=== PATIENT | female | born 1960 | race Two or more races ===

== ENCOUNTER 2022-02-03 13:18 | Outpatient (REF) | payer MEDICARE, SELFPAY ==
--- NOTE | ~2022-02-03 | MM_ITS ---
EXAMINATION: MM SCREENING DIGITAL BREAST TOMOSYNTHESIS, BILATERAL CLINICAL INFORMATION: Screening. Asymptomatic. The lifetime risk of breast cancer based on the Tyrer-Cuzick Model is 5%. COMPARISON: Mammography: 02/19/2018; outside mammography 12/05/2016, 05/14/2012 ([facility], [place]). Ultrasound left breast 02/19/2018. TECHNIQUE: Digital breast tomosynthesis is performed in both the craniocaudal and mediolateral oblique views along with computer-aided detection (CAD). Synthesized 2D images are generated from the tomosynthesis. FINDINGS: There are scattered areas of fibroglandular density (ACR BI-RADS breast composition Category b). There are no significant masses, abnormal calcifications, or other abnormalities. No developing density or interval architectural abnormality. No significant changes from prior studies. MM/MM tomosynthesis screening BI IMPRESSION: No mammographic evidence of malignancy. ASSESSMENT: BI-RADS 1: Negative RECOMMENDATION: Routine annual mammography screening. This patient's information was entered into a reminder system with a target due date for their next mammogram.
== END 2022-02-03 13:19 | disposition home or self-care (01) ==
LOC: HO.MAMMO 13:18
PROVIDERS: Visit Provider General Practice
DX: Z12.31 Encounter for screening mammogram for malignant neoplasm of breast (principal)
CPT/HCPCS: 77063; 77067

== ENCOUNTER 2022-05-10 12:57 | Outpatient (REF) | payer MEDICARE, SELFPAY ==
--- NOTE | ~2022-05-10 | XR_ITS ---
EXAMINATION: XR ELBOW, LEFT CLINICAL INFORMATION: Epicondylitis COMPARISON: None TECHNIQUE: AP, lateral, and oblique views of the left elbow. FINDINGS: Minimal calcific or ossific density noted adjacent to the medial and lateral epicondyle likely likely related to dystrophic or degenerative change in the adjacent soft tissues. Bones, joints and soft tissues are otherwise normal. No effusion. XR/XR elbow LT 2V IMPRESSION: No acute abnormality. Small areas of calcification or ossification adjacent to the epicondyles likely dystrophic or degenerative. This could also be associated with calcific tendinitis.
--- NOTE | ~2022-05-10 | XR_ITS ---
EXAMINATION: XR SHOULDER, RIGHT CLINICAL INFORMATION: Stiffness of right shoulder COMPARISON: X-ray the right shoulder May 2019 TECHNIQUE: AP external rotation, Grashey, scapular Y, and axillary views of the right shoulder. FINDINGS: There is a small focus of calcific density in the region of the distal supraspinatus tendon adjacent to the greater tuberosity. The bones joints and soft tissues are otherwise unremarkable XR/XR shoulder RT min 2V IMPRESSION: Calcification the region of rotator cuff this can be associated with calcific tendinitis or calcific tendinosis. This is not seen on the prior examination.
== END 2022-05-10 12:58 | disposition home or self-care (01) ==
LOC: HO.XRAY 12:57
PROVIDERS: PCP General Practice; Visit Provider General Practice
DX: M77.02 Medial epicondylitis, left elbow (principal); M25.611 Stiffness of right shoulder, not elsewhere classified
CPT/HCPCS: 73030; 73070

== ENCOUNTER 2022-06-19 12:43 | Outpatient (RCR) | payer MEDICARE, SELFPAY | END 2022-06-27 09:18 | disposition home or self-care (01) | LOC: HO.PTCHIC 12:43 | PROVIDERS: PCP General Practice; Visit Provider General Practice | DX: M25.511 Pain in right shoulder (principal) | CPT/HCPCS: 97110; 97161 ==

== ENCOUNTER 2022-09-11 14:27 | Outpatient (REF) | payer MEDICARE, SELFPAY ==
--- NOTE | ~2022-09-11 | US_ITS ---
EXAMINATION: US SOFT TISSUE OF THE NECK CLINICAL INFORMATION: Palpable neck mass. COMPARISON: None TECHNIQUE: Linear transducer grayscale and color Doppler examination of the posterior base of neck. FINDINGS: No abnormal cystic or solid masses are seen in region of palpable abnormality. No lymph nodes are appreciated. No edematous change within the subcutaneous tissues and muscles noted. US/US soft tiss head and/or neck IMPRESSION: No ultrasound abnormality in region of palpable abnormality posterior base of the neck.
== END 2022-09-11 14:28 | disposition home or self-care (01) ==
LOC: HO.US 14:27
PROVIDERS: PCP General Practice; Visit Provider General Practice
DX: R22.1 Localized swelling, mass and lump, neck (principal)
CPT/HCPCS: 76536

== ENCOUNTER 2023-11-12 15:49 | Outpatient (REF) | payer MEDICARE, SELFPAY ==
[2023-11-12 17:30] LABS: MANUAL DIFF FLAG NO
[2023-11-12 17:46] LABS: Estimated Average Glucose 214 mg/dL; Hemoglobin A1c % 9.1 % (<6.0)
[2023-11-12 17:54] LABS: Basophils Percent Auto 0.4 % (0-2); Eosinophils Absolute Auto 0.1 X10*3/uL (0.0-0.4); Eosinophils Percent Auto 2.5 % (0-4); Hematocrit 31.3 % (37.0-47.0); Hemoglobin 9.7 g/dl (12.0-16.0); Imm Gran Abs Auto 0.02 X10*3/uL (0.00-0.03); Imm Gran Pct Auto 0.4 % (0.0-0.4); Lymphocytes Absolute Auto 0.8 X10*3/uL (1.2-4.9); Lymphocytes Percent Auto 16.6 % (20-40); Mean Corpuscular Volume 77.5 fL (80.0-98.0); Monocytes Absolute Auto 0.6 X10*3/uL (0.1-1.2); Monocytes Percent Auto 11.4 % (2-11); Neutrophils Absolute Auto 3.3 x10*3/uL (2.0-8.3); Neutrophils Percent Auto 68.7 % (45-73); Platelet Count 184 X10*3/uL (160-400); Red Blood Count 4.04 X10*6/uL (4.20-5.50); Red Cell Distribution Width 15.1 % (11.0-16.0); White Blood Count 4.8 X10*3/uL (4.8-10.8)
[2023-11-12 17:57] LABS: Cholesterol 162 mg/dL (<200); HDL Cholesterol 39 mg/dL (>40); LDL Cholesterol Calculated 102 mg/dL (<100); Triglycerides 105 mg/dL (<150)
[2023-11-12 18:08] LABS: Creatinine Urine 31.53 mg/dL; Microalbum/Creatinine Ratio Ur 69.7 ug/mg cr (<30)
[2023-11-12 18:13] LABS: TSH reflex Free T4 1.31 uIU/mL (0.32-4.0)
[2023-11-12 18:23] LABS: Folate 15.6 ng/mL (> or = 4.0); Vitamin B12 283 pg/mL (200-900)
== END 2023-11-12 15:50 | disposition home or self-care (01) ==
LOC: HO.HHCL 15:49
PROVIDERS: Visit Provider General Practice
DX: E11.65 Type 2 diabetes mellitus with hyperglycemia (principal); L65.9 Nonscarring hair loss, unspecified; Z79.4 Long term (current) use of insulin
CPT/HCPCS: 36415; 80061; 82043; 82570; 82607; 82746; 83036; 84443; 85025

== ENCOUNTER 2023-12-03 14:10 | Outpatient (REF) | payer MEDICARE, SELFPAY ==
[2023-12-03 16:35] LABS: Alanine Aminotransferase 46 U/L (0-31); Albumin Level 3.9 g/dL (3.5-5.0); Alkaline Phosphatase 38 U/L (39-117); Anion Gap 15 (12-20); Aspartate Amino Transferase 39 U/L (5-31); Bilirubin Total 0.5 mg/dL (0.0-1.0); Blood Urea Nitrogen 24 mg/dL (9-16); Calcium 10.4 mg/dL (8.4-10.2); Carbon Dioxide 24 mmol/L (22-29); Chloride 99 mmol/L (96-108); Estimated Glomerular Filt Rate 32; Sodium 133 mmol/L (135-145); Total Protein 7.9 g/dL (6.5-8.0)
[2023-12-03 19:35] LABS: Glucose Random 427 mg/dL (60-115)
== END 2023-12-03 14:11 | disposition home or self-care (01) ==
LOC: HO.HHCL 14:10
PROVIDERS: Visit Provider General Practice
DX: L29.9 Pruritus, unspecified (principal)
CPT/HCPCS: 36415; 80053

== ENCOUNTER 2024-10-21 14:38 | Outpatient (REF) | payer MEDICARE, SELFPAY ==
--- NOTE | ~2024-10-21 | XR_ITS ---
EXAMINATION: XR CHEST CLINICAL INFORMATION: cough, wheezing, SOB for the past 2 weeks COMPARISON: April 02, 2018. TECHNIQUE: 2 views of the chest were obtained. FINDINGS: No consolidation, pleural effusion or pneumothorax. No hyperinflation. Cardiomediastinal silhouette size is normal. Multilevel thoracic spondylosis. Old healed rib fractures in the posterior lateral aspect of the ribs left upper hemithorax. There is poor evaluation of the left glenohumeral joint with apparent mild position. XR/XR chest 2V IMPRESSION: No acute airspace disease. Dislocated left glenohumeral joint cannot be excluded. Electronically signed by: Sarmad Peterson MD 10/21/2024 03:27 PM PAULINE TOM
--- OUTSIDE RECORDS SUMMARY | 2024-10-21 18:18 | XMS_ITS | Encounter Summary ---
Author Organization [employer] Address [address] [place] [address] [address] [place] [address] Care Team Providers Care Client Evaluator Name Role Phone Love Garcia MD Primary Care Provider [phone] Reason for Visit * Reason Onset Date Comments Reschedule 01/14/2024 Encounter Details Date Type Department Care Team ([facility] st Contact Info) Description 01/14/2024 Telephone [facility] MEDICINE [address] [place], [place] [phone] Love Garcia MD [address] [place], [place] [phone] Reschedule Social History Tobacco Use Types Packs/Day Years Used Date Smoking Tobacco: Every Day Cigarettes Smokeless Tobacco: Never Comments:1 or 2 cigarettes a day Alcohol Use Standard Drinks/Week Comments Never 0 (1 standard drink = 0.6 oz pur e alcohol) Depression Answer Date Recorded Patient Health Questionnaire-9 Score 16 11/12/2023 Patient Health Questionnaire-9 Score 16 11/12/2023 Last PHQ-9: Questionnaire Data Not on file 0 11/12/2023 Housing Stability Answer Date Recorded What is your housing situation today? I have everett camargo 11/12/[address] you li ve. Do you have problems with any of the following? None of the above 11/12/2023 Food Insecurity Answer Date Recorded Within the past 12 months, y ou worried that your food would run out before you got money to buy more: Never True 11/12/2023 Within the past 12 months,th e food you bought just didn't last and you didn't have enough money to get more: Never True Transportation Answer Date Recorded In the past 12 months, has l ack of transportation kept you from medical appts, meetings, work or from getting things needed for daily living? No 11/12/2023 Utilities Answer Date Recorded In the past 12 months, has t he electric, gas, oil or water company threatened to shut off services in your home? No 11/12/2023 Depression Answer Date Recorded Patient Health Questionnaire-2 Score 4 11/12/2023 Comments Unknown Sex and Gender Information Value Date Recorded Sex Assigned at Female 06/26/2022 10:31 AM EDT Legal Sex Female 10:31 AM EDT Gender Identity Female 06/26/2022 10:31 AM EDT Sexual Orientation Straight 10/20/2022 11 :41 AM EST documented as of this encounter Miscellaneous Notes * Telephone Encounter - Liliane Monge - 01/14/2024 2:39 PM EDT Tc from pt requesting to reschedule 01/13 follow up appointment. Power Hair [employer]pper attempted tos schedule but no availability. Please contact pt at [phone] documented in this encounter Plan of Treatment Not on file documented as of this encounter Visit Diagnoses Not on filedocumented in this encounter Additional Health Concerns Assessment Noted Time PHQ-9 Depression Total Score: 16 024 3:45 PM EDT documented as of this encounter Care Teams Client Evaluator Relationship Specialty Start Date End Date Love Garcia MD [address] [place] [address] PCP - General Family Medicine 09/14/20 documented as of this encounter
--- OUTSIDE RECORDS SUMMARY | 2024-10-21 18:18 | XMS_ITS | Encounter Summary ---
Author Organization [employer] Address [address] [facility] [address] [place] [address] Care Team Providers Care Hat Body Inspector Name Role Phone Love Garcia MD Primary Care Provider [phone] Encounter Details Date Type Department Care Team (Late st Contact Info) Description 11/14/2023 Orders Only [facility] MEDICINE [address] [place], [place] [phone] Love Garcia MD [address] [place], [place] [phone] Chronic pruritus (Primary Dx) Social History Tobacco Use Types Packs/Day Years [...] AM EST documented as of this encounter Plan of Treatment Not on file documented as of this encounter Procedures Procedure Name Priority Date/Time Associated Diagnosis Comments COMPREHENSIVE METABOLIC PANEL Routine 12/03/2023 2:11 PM EDT Chronic pruritus documented in this encounter Results * (ABNORMAL) Comprehensive Metabolic Panel (12/03/2023 2:11 PM EDT) Sodium 133(L) 135 - 145 mmol/L [facility] Potassium 5.0 3.3 - 5.1 mmol/L [facility] Chloride 99 96 - 108 mmol/L [facility] Carbon Dioxide 24 22 - 29 mmol/L [facility] Anion Gap 15 12 - 20 [facility] Urea Nitrogen (BUN) 24(H) 9 - 16 mg/dL [facility] Creatinine, Serum 1.64(H) 0.5 - 1.4 mg/dL [facility] Estimated Glomerular Filt Rate 32 [facility] Comment:NOTE: For -Am erican individuals, multiply the result by 1.210.Chronic Kidney Disease: Estimated GFR < 60 mL/min/1.99s7Ntuvpa Kidney Disease: Estimated GFR < 15 mL/min/1.73m2 Glucose 427(HH) 60 - 115 mg/dL [facility] Comment:Critical value for t est(s): GLUR Results called to and readback by: ESSIE BROCK Person calling:Estuardo:12/03/2023 Time:1633 Calcium 10.4(H) 8.4 - 10.2 mg/dL [facility] Bilirubin, Total 0.5 0.0 - 1.0 mg/dL [facility] Aspartate Amino Transferase 39(H) 5 - 31 U/L [facility] Alanine Aminotransferase 46(H) 0 - 31 U/L [facility] Total Protein 7.9 6.5 - 8.0 g/dL [facility] Albumin Level 3.9 3.5 - 5.0 g/dL [facility] Alkaline Phosphatase 38(L) 39 - 117 U/L [facility] Blood Venous blood specimen / Unknown 12/03/2023 2:11 PM EDT 12/03/2023 4:10 PM EDT us Love Garcia MD LAB BLOOD ORDERABLES Edited Re sult - Final [facility] [address] [place] [phone] documented in this encounter Visit Diagnoses Diagnosis Chronic pruritus- Primary documented in this encounter Additional Health Concerns Assessment Noted Time PHQ-9 Depression Total Score: 16 024 3:45 PM EDT documented as of this encounter Care Teams Hat Body Inspector Relationship Specialty Start Date End Date Love Garcia MD [address] [place] [address] PCP - General Family Medicine 09/14/20 documented as of this encounter
--- OUTSIDE RECORDS SUMMARY | 2024-10-21 18:18 | XMS_ITS | Encounter Summary ---
Author Organization [employer] Address [address] [place] [address] [address] [place] [address] Care Team Providers Care Sr. Vendor Management Associate Name Role Phone Love Garcia MD Primary Care Provider [phone] Reason for Visit * Reason Onset Date Comments Med Refill 08/08/2023 Encounter Details Date Type Department Care Team ([facility] st Contact Info) Description 08/08/2023 Telephone [facility] MEDICINE [address] [place], [place] [phone] Love Garcia MD [address] [place], [place] [phone] Med Refill Social History Tobacco Use Types Packs/Day Years Used Date Smoking Tobacco: Every Day Cigarettes Smokeless Tobacco: Never Comments:1 or 2 cigarettes a day Alcohol Use Standard Drinks/Week Comments Never 0 (1 standard drink = 0.6 oz pur e alcohol) Depression Answer Date Recorded Patient Health Questionnaire-9 Score 14 10/20/2022 Housing Stability Answer Date Recorded What is your housing situation today? I have everett camargo 07/02/[address] you li ve. Do you have problems with any of the following? None of the above 07/02/2023 Food Insecurity Answer Date Recorded Within the past 12 months, y ou worried that your food would run out before you got money to buy more: Never True 07/02/2023 Within the past 12 months,th e food you bought just didn't last and you didn't have enough money to get more: Never True 01/2023 Transportation Answer Date Recorded In the past 12 months, has l ack of transportation kept you from medical appts, meetings, work or from getting things needed for daily living? Yes, it has kept me from medical appointments or getting medications. 06/07/2023 Utilities Answer Date Recorded In the past 12 months, has t he electric, gas, oil or water company threatened to shut off services in your home? No 07/02/2023 Depression Answer Date Recorded Patient Health Questionnaire-2 Score 6 10/20/2022 Comments Unknown Sex and Gender Information Value Date Recorded Sex Assigned at Female 06/26/2022 10:31 AM EDT Legal Sex Female 10:31 AM EDT Gender Identity Female 06/26/2022 10:31 AM EDT Sexual Orientation Straight 10/20/2022 11 :41 AM EST documented as of this encounter Miscellaneous Notes * Telephone Encounter - Madhavi Alexandre LPN - 08/08/2023 12:24 PM EST Medication pended to PCP. * Telephone Encounter - Eddie Serrano - 08/08/2023 12:19 PM EST Tc from pt requesting medication refill for insulin glargine (Lantus SoloStar) 100 UNIT/ML pen. documented in this encounter Plan of Treatment Not on file documented as of this encounter Visit Diagnoses Not on filedocumented in this encounter Additional Health Concerns Assessment Noted Time PHQ-9 Depression Total Score: 14 023 11:44 AM EST documented as of this encounter Care Teams Sr. Vendor Management Associate Relationship Specialty Start Date End Date Love Garcia MD [address] [place] [phone] PCP - General Family Medicine 09/14/20 documented as of this encounter
--- OUTSIDE RECORDS SUMMARY | 2024-10-21 18:18 | XMS_ITS | Encounter Summary ---
Author Organization [employer] Address [address] [place] [address] [address] [place] [address] Care Team Providers Care Cryptographic Technician Name Role Phone Love Garcia MD Primary Care Provider Reason for Visit * Reason Onset Date Comments Call Back Request 01/14/2024 Encounter Details Date Type Department Care Team ([facility] st Contact Info) Description 01/14/2024 Telephone [facility] MEDICINE [address] [place], [place] [phone] Love Garcia MD [address] [place], [place] [phone] Call Back Request Social History Tobacco Use Types Packs/Day Years [...] encounter Miscellaneous Notes * Telephone Encounter - Claire Hodge RN - 01/14/2024 4:00 PM EDT TC placed to pt [phone] in regards to below message. Pt informed she should be on a statin medication as she has DM2 and is between the ages of 45-75. Pt informed she used to be on a statin medication however it appears the refills ran out and it was never requested to send a new script. Pt verbalized understanding. Pt to f/u PRN. * Telephone Encounter - Liliane Monge - 01/14/2024 2:36 PM EDT Tc from pt requesting to speak with a nurse in regards to atorvastatin (Lipitor) 20 MG tablet. Would like to know why she was prescribed a cholesterol medication. Please contact pt at [phone] documented in this encounter Plan of Treatment Not on file documented as of this encounter Visit Diagnoses Not on filedocumented in this encounter Additional Health Concerns Assessment Noted Time PHQ-9 Depression Total Score: 16 024 3:45 PM EDT documented as of this encounter Care Teams Cryptographic Technician Relationship Specialty Start Date End Date Love Garcia MD [address] [place] [phone] PCP - General Family Medicine 09/14/20 documented as of this encounter
--- OUTSIDE RECORDS SUMMARY | 2024-10-21 18:18 | XMS_ITS | Clinical Summary ---
Author Organization [employer] Address [address] [place] [address] [address] [place] [address] Care Team Providers Care Emergency Services Director Name Role Phone Love Garcia MD Primary Care Provider [phone] Allergies Active Allergy Reactions Criticality Noted Date Comments Penicillin G 03/07/2017 Medications ascorbic acid (Vitamin C) 500 MG tablet take 1 tablet daily with iron Active cetirizine (ZyrTEC) 10 MG tablet take 1 tablet by oral route every day Active Diclofenac Sodium 1 % gel apply 2 gram by topical route 4 times every day to the affected area(s) Active glucose blood (FREESTYLE LITE) test strip USE 1 Each by DIRECTED route 3 times every day Active Multiple Vitamin (Multi-Vitamin) tablet take 1 tablet by oral route every day with food Active pramoxine-calam ine (Calahist) 1-8 % lotion apply at bedtime Active pen needle 32G x 4 mm misc Inject under the skin if needed. Use qhs Active Super Thin Lancets misc Use 1 lancet by to skin route 3 times every day Active cyclobenzaprine (Flexeril) 5 MG tablet TAKE 1 TABLET BY MOUTH THREE TIMES DAILY FOR 10 DAYS 023 Active traZODone (Desyrel) 50 MG tabletIndicatio ns:Primary insomnia Take 1 tablet (50 mg) by mouth at bedtime. 90 tablet 3 024 2024 Active ferrous sulfate 325 (65 Fe) MG tablet Take 1 tablet (325 mg) by mouth every other day. 45 tablet 3 024 Active metFORMIN (Glucophage) 1000 MG tablet TAKE 1 TABLET BY MOUTH TWICE DAILY WITH MORNING AND EVENING MEALS 200 tablet 3 Active lisinopril 40 MG tabletIndicatio ns:Essential hypertension TAKE 1 TABLET BY MOUTH DAILY 100 tablet 3 Active glipiZIDE (Glucotrol) 10 MG tablet TAKE 1 TABLET BY MOUTH TWICE DAILY BEFORE MEALS 200 tablet 3 Active gabapentin (Neurontin) 300 MG capsule TAKE 1 CAPSULE BY MOUTH 3 TIMES DAILY 300 capsule 3 024 2024 Active omeprazole (PriLOSEC) [address] capsule TAKE 1 CAPSULE BY MOUTH DAILY BEFORE A MEAL 100 capsule 3 Active atorvastatin (Lipitor) 20 MG tablet Take 1 tablet (20 mg) by mouth Once per day. 90 tablet 3 Active metoprolol tartrate (Lopressor) 25 MG tablet Take 1 tablet (25 mg) by mouth 2 times daily. TAKE 1 TABLET BY MOUTH TWICE DAILY WITH 50MG TABLET FOR A TOTAL DOSE OF 75MG TWICE DAILY 180 tablet 3 Active metoprolol tartrate (Lopressor) 50 MG tabletIndicatio ns:Essential hypertension TAKE 1 TABLET BY MOUTH TWICE DAILY WITH MEALS TAKE DOSE WITH 25 MG FOR A TOTAL DOSE OF 75 MG 200 tablet 2 Active Sure Comfort Pen [place] 31G X 5 MM misc USE DIRECTED AT BEDTIME 100 each 11 Active Tirzepatide (Mounjaro) 2.5 MG/0.5ML solution auto-injector Inject 2.5 mg under the skin 1 (one) time per week. 2 mL 2 Active hydroCHLOROthia zide (HYDRODiuril) 25 MG tablet Take 1 tablet (25 mg) by mouth Once per day. 90 tablet 3 024 2024 Active FREESTYLE LITE test stripIndication s:Type 2 diabetes mellitus with hyperglycemia, with long-term current use of insulin ([facility]) Use to test blood sugar three times daily 100 each 12 025 2025 Active Lancets miscIndications :Type 2 diabetes mellitus with hyperglycemia, with long-term current use of insulin (CMS/[facility]) Use to test blood sugar three times daily 100 each Active Alcohol Swabs 70 % padsIndications :Type 2 diabetes mellitus with hyperglycemia, with long-term current use of insulin ([facility]) Use to test blood sugar three times daily 100 each Active Blood Glucose Monitoring Suppl (FreeStyle [place] Lite) w/Device kit Use to test blood sugar three times daily 1 kit Active doxycycline (Vibra-Tabs) 100 MG tablet Take 1 tablet (100 mg) by mouth 2 times daily for 5 days. Take with a full glass of water and do not lie down for at least 30 minutes after. 10 tablet 025 2024 Active albuterol (2.5 MG/3ML) 0.083% nebulizer solutionIndicat ions:Cough, unspecified type,Asthma with acute exacerbation, unspecified asthma severity, unspecified whether persistent,Lung crackles Take 3 mL (2.5 mg) by nebulization every 6 (six) hours if needed for wheezing. 75 mL 025 2025 Active albuterol 108 (90 Base) MCG/ACT inhalerIndicati ons:Asthma with acute exacerbation, unspecified asthma severity, unspecified whether persistent INHALE 2 PUFFS BY MOUTH EVERY 6 HOURS IF NEEDED FOR WHEEZING 8.5 g Active fluticasone furoate (Arnuity Ellipta) 100 MCG/ACT inhaler Inhale 1 puff Once per day. Rinse mouth with water after use to reduce aftertaste and incidence of candidiasis. Do not swallow. 1 each 025 2025 Active predniSONE (Deltasone) 20 MG tablet Take 1 tablet (20 mg) by mouth Once per day for 5 days. 5 tablet 025 2024 Active insulin glargine (Lantus SoloStar) 100 UNIT/ML pen INJECT 38 UNITS SUBCUTANEOUSLY EVERY EVENING 15 mL Active albuterol 108 (90 Base) MCG/ACT inhalerIndicati ons:Mild intermittent asthma with acute exacerbation INHALE 2 PUFFS BY MOUTH EVERY 6 HOURS IF NEEDED FOR WHEEZING 8.5 g 024 02/25/ 2025 Discontinued(R eorder (will not trigger notification to Pharmacy)) Lantus SoloStar 100 UNIT/ML pen INJECT 38 UNITS SUBCUTANEOUSLY EVERY EVENING 15 mL 11 025 2024 Discontinued(R eorder (will not trigger notification to Pharmacy)) Hospital, Clinic, or Other Facility Administered Medication Ordered Dose Route Frequency Start Date End Date Status albuterol (2.5 MG/3ML) 0.083% nebulizer solution 2.5 mgIndications:Cough, unspecified type 2.5 mg NEBULIZATION Once 10/21/2024 10/21/2024 Ended Active Problems Problem Noted Date Diagnosed Date Encounter for screening colonoscopy 08/01/2024 Microcytic anemia 11/14/2023 Assessment & Plan (11/14/2023 9:58 AM EDT): Continue iron supplementation Hg 9.7 today with MCV 77 Hospital discharge follow-up 11/14/2023 Assessment & Plan (11/14/2023 9:57 AM EDT): F/u with GI in February 2024 Continue iron supplement Hair loss 11/14/2023 Muscle pain, myofascial 10/23/2022 Assessment & Plan (10/23/2022 5:01 AM EST): Exam consistent with myofascial pain Linked to stress/family issues and discussed this connection Trial of muscle relaxer, Flexeril 5mg up to three times daily Gentle massage and exercise Find ways to vent stress Neck mass 08/10/2022 Assessment & Plan (08/10/2022 2:27 PM EST): Re-ordered neck soft tissue US, had not heard from previous order Chest pain 12/26/2019 Bilateral cataracts 10/10/2019 Arthritis of hand 07/04/2019 Steatosis of liver 07/04/2019 Assessment & Plan (08/03/2024 5:55 AM EST): Previously noted Due for labs and HCC screening Has been sober for 4 years Assessment & Plan (10/23/2022 4:58 AM EST): Previously noted Due for labs and HCC screening Alcoholic hepatitis 10/24/2017 Impingement syndrome of shoulder region 10/24/19 18 Drug-induced mood disorder 10/12/2017 Tubular adenoma of colon 08/17/2017 Assessment & Plan (08/03/2024 5:54 AM EST): Needs repeat colonscopy Gastroesophageal reflux disease 03/07/2017 Breast lump 03/07/2017 Chronic painful diabetic neuropathy 03/07/2017 Assessment & Plan (11/14/2023 9:55 AM EDT): Continue Gabapentin 300mg up to TID Better glucose control may help this as well Assessment & Plan (08/10/2022 2:24 PM EST): Continue Gabapentin 300mg up to TID Better glucose control may help this as well Constipation 03/07/2017 Current moderate episode of major depressive disorder without prior episode 03/07/2017 Assessment & Plan (10/23/2022 5:00 AM EST): PHQ9 score of 14 Declines referrals to [facility] or prescriber Will start Trazodone 50mg due to trouble sleeping Her grandchildren are great source of inspiration Assessment & Plan (08/10/2022 2:27 PM EST): PHQ9 score of 17 Declines referrals Her grandchildren are great source of inspiration Dyslipidemia 03/07/2017 Essential hypertension 03/07/2017 Assessment & Plan (08/03/2024 5:57 AM EST): Not at goal <140/90 Does not monitor at home Cont Metoprolol and Lisinopril 40mg Increase hydrochlorothiazide to 25mg Assessment & Plan (11/14/2023 9:56 AM EDT): Not at goal <140/90 Does not monitor at home Cont Metoprolol and Lisinopril 40mg, hydrochlorothiazide 12.5mg Has not taken medications today yet Assessment & Plan (10/23/2022 4:58 AM EST): Not at goal <140/90 Cont Metoprolol and Lisinopril 40mg Add thiazide diuretic Assessment & Plan (08/10/2022 2:25 PM EST): Not at goal <140/90 Cont Metorpolol and Lisinopril 40mg Mild intermittent asthma 03/07/2017 Assessment & Plan (11/14/2023 9:55 AM EDT): Has been hospitalized for asthma exacerbation previously as an adult Trigger URI Albuterol refills placed, use up to 4-6 puffs every 4 hours during exacerbation Assessment & Plan (08/10/2022 2:25 PM EST): Has been hospitalized for asthma exacerbation previously as an adult Trigger URI Restart Albuterol prn up to every 4 hours with current URI To ER if not improving after Albuterol tx Obesity 03/07/2017 Prolonged QT interval 03/07/2017 Type 2 diabetes mellitus 03/07/2017 Assessment & Plan (08/03/2024 5:56 AM EST): A1C 9.4 continue Metformin and Glipizide, and Lantus 28units nightly Will try to see if she qualifies for as secondary insurance and then they would pay for copay of GLP1 and would start Mounjaro Monofilament- overdue Dental- UTD Eye exam- overdue to inform me if money or insurance issues make it difficult to obtain medications Imms- declines Assessment & Plan (11/14/2023 9:57 AM EDT): Improving A1C to 9.1 continue Metformin and Glipizide, and Lantus 28units nightly Increase Trulicity 3mg once weekly Monofilament- overdue Dental- UTD Eye exam- overdue to inform me if money or insurance issues make it difficult to obtain medications f/u in 3 months Assessment & Plan (10/23/2022 4:59 AM EST): Improving A1C to 9.6 continue Metformin and Glipizide, and Lantus 28units nightly Increase Trulicity 1.5 mg once weekly Monofilament- overdue Dental- UTD Eye exam- overdue to inform me if money or insurance issues make it difficult to obtain medications f/u in 3 months Assessment & Plan (08/10/2022 2:27 PM EST): Improving A1C to 10.2 continue Metformin and Glipizide, and Lantus 28units nightly Continue Trulicity 0.75mg once weekly Monofilament- overdue Dental- UTD Eye exam- overdue to inform me if money or insurance issues make it difficult to obtain medications Will likely increase Trulicity to 1.5mg at next visit f/u in 2-3 months Resolved Problems Problem Noted Date Diagnosed Date Resolved Date Alcohol consumption binge drinking 05/02/2017 08/03/2024 Joint derangement 03/07/2017 08/03/2024 Left-sided headache 03/07/2017 08/03/20 Encounters Date Type Department Care Team Description 10/21/2024 1:20 PM EST Office Visit [facility] [address] [place] [phone] Name, MD Lambert Asthma with acute exacerbation, unspecified asthma severity, unspecified whether persistent (Primary Dx); Cough, unspecified type; Lung crackles 10/21/2024 Telephone [facility] [address] [place] [phone] Geena Cartagena, RN Results 10/20/2024 Telephone [facility] [address] [place] [phone] Love Garcia MD Nurse Triage 10/08/2024 Refill [facility] [address] [place] [address] [phone] Love Garcia MD Type 2 diabetes mellitus with hyperglycemia, with long-term current use of insulin ([facility]) 09/17/2024 Telephone [facility] [address] [place] [phone] Love Garcia MD Nurse Triage 09/05/2024 Refill [facility] [address] [place] [address] [phone] Love Garcia MD 08/22/2024 Telephone [facility] [address] [place] [address] [phone] Love Garcia MD 08/21/2024 Telephone [facility] [address] [place] [address] Love Garcia MD telephone call 08/14/2024 Telephone [facility] [address] [place] [address] Love Garcia MD telephone call 08/01/2024 2:45 PM EST Office Visit [facility] [address] [place] [address] Love Garcia MD Type 2 diabetes mellitus with hyperglycemia, with long-term current use of insulin (CMS/HCC) (Primary Dx); Dietary counseling; Exercise counseling; Encounter for immunization; Encounter for screening mammogram for malignant neoplasm of breast; Essential hypertension; Steatosis of liver; Tubular adenoma of colon; Class 1 obesity with serious comorbidity and body mass index (BMI) of 32.0 to 32.9 in adult, unspecified obesity type; Alcoholic hepatitis without ascites; Current moderate episode of major depressive disorder without prior episode (CMS/HCC); Calculus of gallbladder without cholecystitis without obstruction 08/01/2024 Travel from Last 3 Months Immunizations Name Administration Dates Next Due Influenza injectable quadriv alent preservative free 06/01/2022,06/04/2020,06/06/2019,04/28,05/19/2015 Influenza, seasonal, injecta ble, preservative free 08/01/2024,04/28/2017 Pfizer Covid-19 Vaccine 12+ 01/02/2022,,03/03/2021 Pfizer Covid-19 Vaccine 12+ Bivalent 06/16/2022 Pfizer Covid-19 Vaccine 12+ daljit-sucrose (Mireles Cap) 01/02/2022 Pneumococcal Conjugate PCV 20 06/16/2022 Pneumococcal Polysaccharide PPSV23 05/02/2017 Tdap 05/02/2017 Zoster, Recombinant 07/09/2018 Family History Medical History Relation Name Comments Lung cancer Father Diabetes Mother Heart failure Mother Lymphoma Mother Asthma Sister Diabetes Sister Stroke Sister Relation Name Status Comments Father Mother Sister Social History Tobacco Use Types Packs/Day Years Used Date Smoking Tobacco: Every Day Cigarettes Smokeless Tobacco: Never Tobacco Cessation:Ready to Q uit: Not Asked; Counseling Given: Not Answered Comments:1 or 2 cigarettes a day Alcohol [...] Orientation Straight 10/20/2022 11 :41 AM EST Last Filed Vital Signs Vital Sign Reading Time Taken Comments Blood Pressure 146/84 10/21/2024 1:18 PM EST Pulse 87 10/21/2024 1:18 PM EST Temperature 36.9 ??C (98.5 ??F) 10/21/2024 1:18 PM ES T Respiratory Rate 20 10/21/2024 1:18 PM EST Oxygen Saturation 92% 10/21/2024 1:18 PM EST Inhaled Oxygen Concentration - - Weight 78.1 kg (172 lb 4 oz) 10/21/2024 1:18 PM EST Height 157.5 cm (5' 2 ) 10/21/2024 1:18 PM EST Body Mass Index 31.5 10/21/2024 1:18 PM EST Plan of Treatment Health Maintenance Due Date Last Done Comments CT Colonography 1962 FIT DNA/Cologuard 1962 FIT 1962 FOBT 1960 HIV Screening 1960 Sigmoidoscopy 1962 Diabetes: Foot Exam 1972 Alcohol/Substance Use Screening 1974 Hepatitis A Vaccines (1 of 2 - Risk 2-dose series) 1981 Pap Smear 11/14/1983 Cervical Cancer Screening 1992 HPV/Cotest 1992 Colonoscopy 08/08/2018 08/08/2017 Colorectal Cancer Screening 08/08/2018 Zoster Vaccines (2 of 2) 09/03/2018 07/09/2018 Hepatitis B Vaccines (1 of 3 - Risk 3-dose series) 2022 RSV Patients and Patients Aged 60 years or older (1 - Risk 60-74 years 1-dose series) 2022 Mammogram 02/03/2023 02/03/2022, 02/03/2022 COVID-19 Vaccine ( season) 2024 06/16/2022, 01/02/2022, 01/02/2022, Additional history exists Depression Monitoring (PHQ-9) 05/14/2024 11/12/2023, 11/12/2023 Diabetes: Hemoglobin A1C 10/30/2024 024, 11/12/2023, 10/20/2022, Additional history exists Depression Screening 11/11/2024 11/12/2023, 11/12/19 Diabetes: Urine Protein Screening 11/11/2024 11/12/2023, 01/02/2022, 11/06/2019 Lipid Panel 11/11/2024 11/12/2023, 01/02/2022 SDOH Screening 11/11/2024 11/12/2023 Eye Exam 01/26/2025 01/26/2023, 0609/2022, 01/26/2023, Additional history exists Tobacco Screening 10/21/2025 10/21/2024 DTaP/Tdap/Td Vaccines (2 - Td or Tdap) 05/02/2027 05/02/2017 Hepatitis C Screening Completed 01/02/2022 Pneumococcal Vaccine: 50+ Years Completed 06/16/2022, 05/02/2017 Influenza Vaccine Completed 08/01/2024, , 06/04/2020, Additional history exists HIB Vaccines Aged Out No longer eligi ble based on patient's age to complete this topic HPV Vaccines Aged Out No longer eligi ble based on patient's age to complete this topic IPV Vaccines Aged Out No longer eligi ble based on patient's age to complete this topic Meningococcal Vaccine Aged Out No tommy evin eligible based on patient's age to complete this topic RSV under 20 months Aged Out No longe r eligible based on patient's age to complete this topic Rotavirus Vaccines Aged Out No longer eligible based on patient's age to complete this topic Procedures Procedure Name Priority Date/Time Associated Diagnosis Comments XR CHEST 2 VIEWS Routine 10/21/2024 2:38 PM EST Cough, unspecified type Asthma with acute exacerbation, unspecified asthma severity, unspecified whether persistent POCT INFLUENZA B (ID NOW RAPID MOLECULAR) Routine 10/21/2024 1:44 PM EST Cough, unspecified type POCT INFLUENZA A (ID NOW RAPID MOLECULAR) Routine 10/21/2024 1:44 PM EST Cough, unspecified type POCT GLUCOSE Routine 10/21/2024 1:43 PM EST Cough, unspecified type POCT RAPID COVID ANTIGEN Routine 10/21/2024 1:38 PM EST Cough, unspecified type POCT GLYCATED HEMOGLOBIN, TOTAL Routine 08/01/2024 3:08 PM EST Type 2 diabetes mellitus with hyperglycemia, with long-term current use of insulin ([facility]) POCT GLUCOSE Routine 08/01/2024 3:08 PM EST Type 2 diabetes mellitus with hyperglycemia, with long-term current use of insulin ([facility]) ALBUMIN, RANDOM URINE W/CREATININE Routine 11/12/2023 3:50 PM EDT Type 2 diabetes mellitus with hyperglycemia, with long-term current use of insulin (CMS/HCC) LIPID PANEL, STANDARD Routine 11/12/2023 3:50 PM EDT Type 2 diabetes mellitus with hyperglycemia, with long-term current use of insulin (CMS/HCC) MAMMOGRAM GENERIC Routine 02/03/2022 1:4 2 PM EDT ZZZ HISTORICAL HEPATITIS C AB W/REFL TO HCV RNA, QN, PCR Routine 01/02/2022 11:42 AM EDT HM COLONOSCOPY Routine 08/08/2017 1:25 PM EST from Last 3 Months or Most Recently Relevant to Health Maintenance Results * XR Chest 2 Views (10/21/2024 2:38 PM EST) Anatomical Region Laterality Modality Chest Radiographic Chrissy ging 10/21/2024 2:38 PM EST Narrative 10/21/2024 3:30 PM EST ?[facility] ?[address] ?[place] [address] ?XRay Report ? Signed ? Patient: Mclean,Ada ?MR#: [id number] ? : 1960 ?Acct:[id number] ? Age/Sex: 63 / F ?ADM Date: 10/21/24 ? Loc: HO.HHCX ? Attending Dr: Lambert Lagos MD ? Ordering Physician: Lambert Lagos MD ?? Date of Service: 10/21/24 ?? Procedure(s): XR chest 2V ?? Accession Number(s): [id number] ? cc: Lambert Lagos MD ? EXAMINATION: ?? XR CHEST ? CLINICAL INFORMATION: ?? cough, wheezing, SOB for the past 2 weeks ? COMPARISON: ?? April 02, 2018. ? TECHNIQUE: ?? 2 views of the chest were obtained. ? FINDINGS: ?? No consolidation, pleural effusion or pneumothorax. No hyperinflation. ?? Cardiomediastinal silhouette size is normal. ?? Multilevel thoracic spondylosis. Old healed rib fractures in the ?? posterior lateral aspect of the ribs left upper hemithorax. ?? There is poor evaluation of the left glenohumeral joint with apparent ?? mild position. ? XR/XR chest 2V ?? IMPRESSION: ?? No acute airspace disease. ?? Dislocated left glenohumeral joint cannot be excluded. ? Electronically signed by: ??Sarmad Peterson MD ??10/21/2024 03:27 PM ?? EST RP ? Dictated By: ?Sarmad Ellis MD ? Signed By: ?<Electronically signed by Sarmad Stanford MD in OV> ? 10/21/24 1527 ? DD/ 1438 ? TD/TT: 10/21/24 1500 ? Baseball Glove Stuffer: ? Procedure Note Donotuseinterpreter, Image - 10/21/2024 [place] [address] XRay Report Signed Patient: Kelle Mclean#: [id number] : 1960Acct:[id number] Age/Sex: 63 / FADM Date: 10/21/24 Loc: .HHX Attending Dr: Lambert Lagos MD Ordering Physician: Lambert Lagos MD Date of Service: 10/21/24 Procedure(s): XR chest 2V Accession Number(s): [id number] cc: Lambert Lagos MD EXAMINATION: XR CHEST CLINICAL INFORMATION: cough, wheezing, SOB for the past 2 weeks COMPARISON: April 02, 2018. TECHNIQUE: 2 views of the chest were obtained. FINDINGS: No consolidation, pleural effusion or pneumothorax. No hyperinflation. Cardiomediastinal silhouette size is normal. Multilevel thoracic spondylosis. Old healed rib fractures in the posterior lateral aspect of the ribs left upper hemithorax. There is poor evaluation of the left glenohumeral joint with apparent mild position. XR/XR chest 2V IMPRESSION: No acute airspace disease. Dislocated left glenohumeral joint cannot be excluded. Electronically signed by: Sarmad Peterson MD 10/21/2024 03:27 PM EST Dictated By: Sarmad Ellis MD Signed By: <Electronically signed by Sarmad Stanford MDin OV> 10/21/24 1527 DD/ 1438 TD/TT: 10/21/24 1500 Baseball Glove Stuffer: us Lambert Lagos MD IMG XR PROCEDURES Final Result * Influenza B (ID NOW Rapid Molecular) (10/21/2024 1:44 PM EST) [facility] Influenza B Negative Negative, Indeterminate [facility] Swab 10/21/2024 1:44 PM EST Result Abbey Lagos MD POINT OF CARE TEST ENTER/EDIT OR DERABLES Final Result Performing Organization Address City/[facility]/ZIP Co de Phone Number [facility] [address] [place] [address] [phone] * Influenza A (ID NOW Rapid Molecular) (10/21/2024 1:44 PM EST) [facility] Influenza A Negative Negative, Indeterminate [facility] Swab 10/21/2024 1:44 PM EST Result Abbey Lagos MD POINT OF CARE TEST ENTER/EDIT OR DERABLES Final Result Performing Organization Address [facility] Co de Phone Number [facility] [address] [place] [address] [phone] * (ABNORMAL) POCT glucose manually resulted (10/21/2024 1:43 PM EST) Only the most recent of2 resultswithin the time period is included. [facility] Glucose Blood, POC 244(A) 60 - 200 mg/dL Blood Capillary blood specimen / Unknown 10/21/2024 1:43 PM EST Result Abbey Lagos MD POINT OF CARE TEST ENTER/EDIT OR DERABLES Final Result * POCT Rapid COVID Ag (10/21/2024 1:38 PM EST) [facility] Rapid COVID Ag Negative Swab 10/21/2024 1:38 PM EST us Lambert Lagos MD POINT OF CARE TEST ENTER/EDIT OR DERABLES Final Result * (ABNORMAL) POCT HGB A1C (08/01/2024 3:08 PM EST) Hemoglobin A1C 9.4(A) 4.0 - 6.0 % QC Media Lot # [id number] Lot# Expiration Date Blood 08/01/2024 3:08 PM EST Love Garcia MD POINT OF CARE TEST ENTER/EDIT ORDERABLES Final Result * (ABNORMAL) Albumin, Random Urine W/Creatinine (11/12/2023 3:50 PM EDT) Creatinine, Urine 31.53 mg/dL [facility] Microalbumin Urine 22.0 mg/L [facility] Microalbum Creatinine Ratio Ur 69.7(H) <30 ug/mg cr [facility] Comment:Albumin/Creatinine R at Reference Ranges: Normal: < 30 ug/mg creatinine Microalbuminuria: 30 - 300 ug/mg creatinineClinical Albuminuria: > 300 ug/mg creatinine Urine (Urine, Random) 11/12/2023 3:50 PM EDT 11/12/2023 5:35 PM EDT Love Garcia MD LAB URINE ORDERABLES Final Res ult [facility] [address] [place] [address] [phone] * (ABNORMAL) Lipid Panel, Standard (11/12/2023 3:50 PM EDT) Triglycerides 105 <150 mg/dL [facility] Comment:Desirable Triglyceri de: less than 150 mg/dLBorderline High Triglyceride 150-199 mg/dLHigh Triglyceride: 200-499 mg/dLVery High Triglyceride: greater than or equal to 5OO mg/dL Cholesterol 162 <200 mg/dL [facility] Comment:Desirable Cholestero l: less than 200 mg/dLBorderline High Cholesterol: 200-239 mg/dLHigh Cholesterol: greater than 239 mg/dL LDL Cholesterol Calculated 102(H) <100 mg/dL [facility] Comment:Desirable LDL: less than 100 mg/dLNear Optimal/Above Optimal LDL: 110- 129 mg/dLBorderline High LDL: 130-159 mg/dLHigh LDL: 160-189 mg/dLVery High LDL: greater than or equal to 190 mg/dL HDL Cholesterol 39(L) >40 mg/dL [facility] Comment:Desirable HDL: great er than 40 mg/dL Note: This HDL assay may give artificially low results in patients with liver disease. Blood Venous blood specimen / Unknown 11/12/2023 3:50 PM EDT 11/12/2023 5:27 PM EDT Love Garcia MD LAB BLOOD ORDERABLES Final Res ult Performing Organization Address City/State/[facility] Co de Phone Number [facility] [address] [place] [phone] * Mammography Report 1 (02/03/2022 1:42 PM EDT) Anatomical Region Laterality Modality Breast Bilateral Mammography 02/03/2022 1:42 PM EDT Narrative 03/01/2022 4:14 PM EDT Refer to the Notes tab for result details [facility] Procedure: Mammography Report 1 Procedure Note Provider, MD Katie - 11/19/2022 Refer to the Notes tab for result details [facility] Procedure: Mammography Report 1 Love Garcia MD IMG BI PROCEDURES Final Result * HEPATITIS C AB W/REFL TO HCV RNA, QN, PCR (01/02/2022 11:42 AM EDT) HEPATITIS C ANTIBODY NON-REACT NISH NON-REACT NISH [facility] INDEX 0.03 <1.00 [facility] Comment: ?? HCV antibody was non-reactive. There is no laboratory ?? evidence of HCV infection. ?? In most cases, no further action is required. However, if recent HCV exposure is suspected, a test for HCV RNA (test code 37818) is suggested. ?? For additional information please refer to http://education.Beepl.ZipMatch/faq/DZJ61c2 (This link is being provided for informational/ educational purposes only.) ?? 01/02/2022 11:4 2 AM EDT Love Garcia MD HISTORICAL/NON ORDERABLE LABS Final Result [facility] [address] * Hm Colonoscopy (08/08/2017 1:25 PM EST) Historical Provider HEALTH MAINTENANCE Final Result from Last 3 Months or Most Recently Relevant to Health Maintenance Insurance MEDICARE ADVANTAGE HMO Care Teams Emergency Services Director Relationship Specialty Start Date End Date Love Garcia MD [address] [place] [phone] PCP - General Family Medicine 09/14/20
--- OUTSIDE RECORDS SUMMARY | 2024-10-21 18:18 | XMS_ITS | Encounter Summary ---
Author Organization [employer] Address [address] [place] [address] 7t [place] [address] Care Team Providers Care Pizzamaker Name Role Phone Love Garcia MD Primary Care Provider Reason for Visit * Reason Onset Date Comments Nurse Triage 10/20/2024 Encounter Details Date Type Department Care Team ([facility] st Contact Info) Description 10/20/2024 Telephone [facility] [address] [place], [place] [phone] Love Garcia MD [address] [place], [place] [phone] Nurse Triage Social History Tobacco Use Types Packs/Day Years [...] encounter Miscellaneous Notes * Telephone Encounter - Lily Blancas RN - 10/20/2024 2:52 PM EST called pt to triage spoke to pt. pt states 1 week duration of congestion, cough, sore throat, intermittent wheezing, and fatigue. pt denies known exposures, known high fevers, rash, sob, vomiting, orother associated symptoms. no available appt today or tomorrow and advised walk in center. given location, hours, and wait times cautions. advised home care: rest, fluids, steam, humidifier, warm saltwater gargles, lozenges, OTC pain or fever reliever as needed, an d call back if worsening or new concerns. pt understands a d agrees with plan. insurance verified. Protocol Used: Breathing Difficulty (Adult) Protocol-Based Disposition: See in Office or Video Visit within 3 Days Video visit offer not recorded Positive Triage Question: * Moderate longstanding difficulty breathing (e.g., speaks in phrases, SOB even at rest, pulse 100-120) and same as normal< br /> * All higher-acuity triage questions were negative Care Advice Discussed: * General Care Advice for Breathing Difficulty * Fever Medicines * Reasons To Call Back - Severe difficulty breathing occurs - Fever more than 100.4 F (38.0 C) - You become worse * Telephone Encounter - Jean Claude Jones - 10/20/2024 1:58 PM EST Symptom: Wheezing Outcome: Talk to a nurse or provider within 15 minutes Reason: Any trouble breathing through the mouth The caller accepted this outcome. Duration 1x week documented in this encounter Plan of Treatment Not on file documented as of this encounter Visit Diagnoses Not on filedocumented in this encounter Additional Health Concerns Assessment Noted Time PHQ-9 Depression Total Score: 16 024 3:45 PM EDT documented as of this encounter Care Teams Pizzamaker Relationship Specialty Start Date End Date Love Garcia MD [address] [place] [address] PCP - General Family Medicine 09/14/20 documented as of this encounter
--- OUTSIDE RECORDS SUMMARY | 2024-10-21 18:18 | XMS_ITS | Encounter Summary ---
Author Organization [employer] Address [address] [facility] 7t [place] [address] Care Team Providers Care Licensed Marriage And Family Therapist Name Role Phone Love Garcia MD Primary Care Provider [phone] Encounter Details Date Type Department Care Team (Late st Contact Info) Description 01/31/2024 [facility] 230 [place], [place] [phone] Love Garcia MD 230 [place], [place] [phone] Social History Tobacco Use Types Packs/Day Years [...] documented as of this encounter Care Teams Licensed Marriage And Family Therapist Relationship Specialty Start Date End Date Love Garcia MD [address] [place] [phone] PCP - General Family Medicine 09/14/20 documented as of this encounter
--- OUTSIDE RECORDS SUMMARY | 2024-10-21 18:18 | XMS_ITS | Encounter Summary ---
Author Organization [employer] Address [address] [facility] 7t [place] [address] Care Team Providers Care [employer] Special Education Teacher Name Role Phone Love Garcia MD Primary Care Provider [phone] Encounter Details Date Type Department Care Team ([facility] st Contact Info) Description 06/05/2024 Orders Only [facility] MED[facility]INE 230 [place], [place] [phone] Love Garcia MD 230 [place], [place] [phone] Social History Tobacco Use Types Packs/Day Years [...] documented as of this encounter Care Teams [employer] Special Education Teacher Relationship Specialty Start Date End Date Love Garcia MD [address] [place] [phone] PCP - General Family Medicine 09/14/20 documented as of this encounter
--- OUTSIDE RECORDS SUMMARY | 2024-10-21 18:18 | XMS_ITS | Encounter Summary ---
Author Organization [employer] Address [address] [facility] 7t [place] [address] Care Team Providers Care Neon Sign Servicer Name Role Phone Love Garcia MD Primary Care Provider [phone] Encounter Details Date Type Department Care Team ([facility] st Contact Info) Description 01/03/2024 Orders Only [facility] MEDICINE [address] [place], [place] [phone] Love Garcia MD 230 [place], [place] [phone] Social History Tobacco Use Types Packs/Day Years [...] documented as of this encounter Care Teams Neon Sign Servicer Relationship Specialty Start Date End Date Love Garcia MD [address] [place] [phone] PCP - General Family Medicine 09/14/20 documented as of this encounter
--- OUTSIDE RECORDS SUMMARY | 2024-10-21 18:18 | XMS_ITS | Encounter Summary ---
Author Organization [employer] Address [address] [place] [address] 7t [place] [address] Care Team Providers Care Training Coordinator Name Role Phone Love Garcia MD Primary Care Provider [phone] Encounter Details Date Type Department Care Team ([facility] st Contact Info) Description 11/03/2022 Orders Only [facility] MED[facility]INE 230 [place], [place] [phone] Love Garcia MD 230 [place], [place] [phone] Type 2 diabetes mellitus with hyperglycemia, with long-term current use of insulin ([facility]) (Primary Dx) Social History Tobacco Use Types Packs/Day Years Used Date Smoking Tobacco: Every Day Cigarettes Smokeless Tobacco: Never Comments:1 or 2 cigarettes a day Alcohol Use Standard Drinks/Week Comments Never 0 (1 standard drink = 0.6 oz pur e alcohol) Depression Answer Date Recorded Patient Health Questionnaire-9 Score 14 10/20/2022 Depression Answer Date Recorded Patient Health Questionnaire-2 Score 6 10/20/2022 Comments Unknown Sex and Gender Information Value Date Recorded Sex Assigned at Female 06/26/2022 10:31 AM EDT Legal Sex Female 10:31 AM EDT Gender Identity Female 06/26/2022 10:31 AM EDT Sexual Orientation Straight 10/20/2022 11 :41 AM EST COVID-19 Exposure Response Date Recorded In the last 10 days, have yo u been in contact with someone who was confirmed or suspected to have Coronavirus/COVID-19? No / Unsure 10/20/2022 11:26 AM EST documented as of this encounter Plan of Treatment Not on file documented as of this encounter Visit Diagnoses Diagnosis Type 2 diabetes mellitus with hyperglycemia, with long-term current use of insulin ([facility])- Primary documented in this encounter Additional Health Concerns Assessment Noted Time PHQ-9 Depression Total Score: 14 023 11:44 AM EST documented as of this encounter Care Teams Training Coordinator Relationship Specialty Start Date End Date Love Garcia MD [address] [place] [address] PCP - General Family Medicine 09/14/20 documented as of this encounter
--- OUTSIDE RECORDS SUMMARY | 2024-10-21 18:18 | XMS_ITS | Encounter Summary ---
Author Organization [employer] Address [address] [facility] 7t [place] [address] Care Team Providers Care Chicken And Fish Butcher Name Role Phone Love Garcia MD Primary Care Provider [phone] Encounter Details Date Type Department Care Team (Late st Contact Info) Description 01/03/2024 Orders Only [facility] MEDICINE 230 [place] [address] ProviderKatie MD Social History Tobacco Use Types Packs/Day Years [...] Procedure Name Priority Date/Time Associated Diagnosis Comments HM COLONOSCOPY Routine 08/08/2017 1:25 PM EST documented in this encounter Results * Hm Colonoscopy (08/08/2017 1:25 PM EST) us Historical Provider HEALTH MAINTENANCE Final Result documented in this encounter Visit Diagnoses Not on filedocumented in this encounter Additional Health Concerns Assessment Noted Time PHQ-9 Depression Total Score: 16 024 3:45 PM EDT documented as of this encounter Care Teams Chicken And Fish Butcher Relationship Specialty Start Date End Date Love Garcia MD 230 [place] [address] PCP - General Family Medicine 09/14/20 documented as of this encounter
--- OUTSIDE RECORDS SUMMARY | 2024-10-21 18:18 | XMS_ITS | Encounter Summary ---
Author Organization [email or web address] Address [address] [place] [address] 7t [place] [address] Care Team Providers Care Fiber Optics Supervisor Name Role Phone Love Garcia MD Primary Care Provider [phone] Encounter Details Date Type Department Care Team (Late st Contact Info) Description 04/27/2023 Abstract [facility] MEDICINE 230 [place], [place] [phone] Carol Donato Social History Tobacco Use Types Packs/Day Years [...] documented as of this encounter Care Teams Fiber Optics Supervisor Relationship Specialty Start Date End Date Love Garcia MD [address] [place] [address] PCP - General Family Medicine 09/14/20 documented as of this encounter
--- OUTSIDE RECORDS SUMMARY | 2024-10-21 18:18 | XMS_ITS | Encounter Summary ---
Author Organization [employer] Address [address] [facility] 7t [place] [address] Care Team Providers Care Supervisor Meter Shop Name Role Phone Love Garcia MD Primary Care Provider [phone] Reason for Visit * Reason Onset Date Comments Results 10/21/2024 Encounter Details Date Type Department Care Team ([facility] st Contact Info) Description 10/21/2024 Telephone [facility] [address] [place] [address] Geena Cartagena RN Results Social History Tobacco Use Types Packs/Day Years [...] encounter Miscellaneous Notes * Telephone Encounter - Geena Cartagena RN - 10/21/2024 4:45 PM EST Telephone call to pt to advise that xray results are negative for pneumonia. Advised that results did possibility of left shoulder joint concern however provider not concerned given clinical findings. Pt then reported that her right shoulder does have a lot of joint pain. Advised her that will let provider know and that nurses will call to status check in a few days. Pt verbalized understanding. * Telephone Encounter - Geena Cartagena RN - 10/21/2024 4:36 PM EST ----- Message from Nurse Yazmin Zamora sent at 10/21/2024 3:46 PM EST ----- ----- Message ----- From: Lambert Lagos MD Sent: 10/21/2024 3:41 PM EST To: [facility] Red Team Nurses Please call the patient. Let her know x-ray was negative for pneumonia. She did not have any joint pain issues. According to the x-ray dislocated left glenohumeral joint cannot be excluded but this is not clinically significant. The most important issue is the x-ray was negative for pneumonia. documented in this encounter Plan of Treatment Not on file documented as of this encounter Visit Diagnoses Not on filedocumented in this encounter Additional Health Concerns Assessment Noted Time PHQ-9 Depression Total Score: 16 024 3:45 PM EDT documented as of this encounter Care Teams Supervisor Meter Shop Relationship Specialty Start Date End Date Love Garcia MD [address] [place] [address] PCP - General Family Medicine 09/14/20 documented as of this encounter
--- OUTSIDE RECORDS SUMMARY | 2024-10-21 18:18 | XMS_ITS | Encounter Summary ---
Author Organization [employer] Address [address] [facility] 7t [place] [address] Care Team Providers Care Superintendent Stevedoring Name Role Phone Love Garcia MD Primary Care Provider [phone] Reason for Visit * Reason Comments Cough Encounter Details Date Type Department Care Team ([facility] st Contact Info) Description 10/21/2024 1:20 PM EST Office Visit [facility] [address] [place] [address] [phone] Name, MD Lambert [address] [place] [address] Asthma with acute exacerbation, unspecified asthma severity, unspecified whether persistent (Primary Dx); Cough, unspecified type; Lung crackles Social History Tobacco Use Types Packs/Day Years [...] AM EST documented as of this encounter Last Filed Vital Signs Vital Sign Reading [...] Mass Index 31.5 10/21/2024 1:18 PM EST documented in this encounter Progress Notes * Lambert Lagos MD - 10/21/2024 1:20 PM EST Subjective Patient ID: Tamika Mclean is a 63 y.o. female who presents for Cough. Patient comes for a sick visit. She has a personal history of asthma she is a former smoker. She describes a couple of weeks of respiratory symptoms including cough, wheezing, dyspnea exertion, increased requirement for albuterol. The patient tells me that last week she was having fevers and chillsbut that has resolved. She does not know of any sick contacts. She only has albuterol at home. She is not using any preventive inhalers. She also has a personal history of diabetes that is uncontrolled. Her last hemoglobin A1c was around 9. Her last blood sugar at home was around 300 about 3 days ago. Review of Systems Constitutional: Positive for fatigue. Respiratory: Positive for choking, shortness of breath and wheezing. Cardiovascular: Negative for chest pain, palpitations and leg swelling. Gastrointestinal: Negative for abdominal pain. Visit Vitals BP (!) 146/84 (BP Location: Right arm, Patient Position: Sitting, BP Cuff Size: Adult) Pulse 87 Temp 98.5 ??F (36.9 ??C) (Oral) Resp 20 Ht 5' 2 (1.575 m) Wt 172 lb 4 oz (78.1 kg) SpO2 92% BMI 31.50 kg/m?? Smoking Status Every Day BSA 1.85 m?? Objective Physical Exam Constitutional: General: She is not in acute distress. Appearance: She is not toxic-appearing. Cardiovascular: Rate and Rhythm: Normal rate and regular rhythm. Pulmonary: Effort: No respiratory distress. Breath sounds: Wheezing present. Comments: Wheezing improved after albuterol updraft in office. I heard some faint left lower lobe crackles on exam. Latest Reference Range & Units 10/21/24 13:38 10/21/24 13:43 10/21/24 13:44 Glucose Blood, POC 60 - 200 mg/dL 244 ! Influenza A Negative, Indeterminate Negative Influenza B Negative, Indeterminate Negative Rapid COVID Ag Negative !: Data is abnormal Assessment/Plan Diagnoses and all orders for this visit: Asthma with acute exacerbation, unspecified asthma severity, unspecified whether persistent Comments: Patient symptoms are consistent with asthma exacerbation probably following viral URI. Symptoms improved with albuterol updraft and she has some crackles on the left lower lung field. I recommended treatment with short course of prednisone. Course of doxycycline for possible community-acquired pneumonia. Continue rescue albuterol. She was prescribed albuterol MDI and albuterol liquid to use with her nebulizer at home. I started the patient on Arnuity to use daily for asthma prevention. I encouraged the patient to stay away from cigarettes. We discussed side effects of prednisone including possible hyperglycemia. I recommended to increase her Lantus to 38 units daily for the next week. I efe mmended to use 1/2 tablet of glipizide if needed for hyperglycemia. We discussed the importance of avoiding sweets and soda. I will message team nurses to call the patient in the next couple days to see how she is doing. I will contact the patient with the results of the x-ray ordered today. Orders: - XR Chest 2 Views; Future - albuterol (2.5 MG/3ML) 0.083% nebulizer solution; Take 3 mL (2.5 mg) by nebulization every 6 (six) hours if needed for wheezing. - albuterol 108 (90 Base) MCG/ACT inhaler; INHALE 2 PUFFS BY MOUTH EVERY 6 HOURS IF NEEDED FOR WHEEZING Cough, unspecified type - Influenza A (ID NOW Rapid Molecular) - Influenza B (ID NOW Rapid Molecular) - POCT Rapid COVID Ag - POCT glucose manually resulted - albuterol (2.5 MG/3ML) 0.083% nebulizer solution 2.5 mg - XR Chest 2 Views; Future - albuterol (2.5 MG/3ML) 0.083% nebulizer solution; Take 3 mL (2.5 mg) by nebulization every 6 (six) hours if needed for wheezing. Lung crackles - albuterol (2.5 MG/3ML) 0.083% nebulizer solution; Take 3 mL (2.5 mg) by nebulization every 6 (six) hours if needed for wheezing. Other orders - doxycycline (Vibra-Tabs) 100 MG tablet; Take 1 tablet (100 mg) by mouth 2 times daily for 5 days.Take with a full glass of water and do not lie down for at least 30 minutes after. - fluticasone furoate (Arnuity Ellipta) 100 MCG/ACT inhaler; Inhale 1 puff Once per day. Rinse mouth with water after use to reduce aftertaste and incidence of candidiasis. Do not swallow. - predniSONE (Deltasone) 20 MG tablet; Take 1 tablet (20 mg) by mouth Once per day for 5 days. - insulin glargine (Lantus SoloStar) 100 UNIT/ML pen; INJECT 38 UNITS SUBCUTANEOUSLY EVERY EVENING documented in this encounter Plan of Treatment [...] 10/21/2024 1:38 PM EST Cough, unspecified type documented in this encounter Results * XR Chest 2 Views (10/21/2024 2:38 PM EST) Anatomical Region Laterality Modality Chest Radiographic Chrissy ging 10/21/2024 2:38 PM EST Narrative 10/21/2024 3:30 PM EST ?[facility] ?[address] ?[place] [address] ?XRay Report ? Signed ? Patient: Mclean,Ada ?MR#: [id number] ? : 1960 ?Acct:[id number] ? Age/Sex: 63 / F ?ADM Date: 10/21/24 ? Loc: HO.HHCX ? Attending Dr: Lambert Lagos MD ? Ordering Physician: Lambert Lagos MD ?? Date of Service: 10/21/24 ?? Procedure(s): XR chest 2V ?? Accession Number(s): [id number] ? cc: Lambert Lagos MD ? EXAMINATION: [...] DD/ 1438 ? TD/TT: 10/21/24 1500 ? Dinkey Press Operator: ? Procedure Note Donjanetteter, Image - 10/21/2024 [place] [address] XRay Report Signed Patient: Kelle Mclean#: [id number] : 1960Acct:[id number] Age/Sex: 63 / FADM Date: 10/21/24 Loc: .HHCX Attending Dr: Lambert Lagos MD Ordering Physician: Lambert Lagos MD Date of Service: 10/21/24 Procedure(s): XR chest 2V Accession Number(s): [id number] cc: Lambert Lagos MD EXAMINATION: XR CHEST [...] 10/21/24 1527 DD/ 1438 TD/TT: 10/21/24 1500 Dinkey Press Operator: us Lambert Lagos MD IMG XR PROCEDURES Final Result * Influenza B (ID NOW Rapid Molecular) (10/21/2024 1:44 PM EST) [facility] Influenza B Negative Negative, Indeterminate [facility] Swab 10/21/2024 1:44 PM EST Result Abbey Lagos MD POINT OF CARE TEST ENTER/EDIT OR DERABLES Final Result Performing Organization Address [facility]/ZIP Co de Phone Number [facility] [address] [place] [phone] * Influenza A (ID NOW Rapid Molecular) (10/21/2024 1:44 PM EST) [facility] Influenza A Negative Negative, Indeterminate [facility] Swab 10/21/2024 1:44 PM EST Result Abbey Lagos MD POINT OF CARE TEST ENTER/EDIT OR DERABLES Final Result Performing Organization Address [facility] Co de Phone Number [facility] [address] [place] [phone] * (ABNORMAL) POCT glucose manually resulted (10/21/2024 1:43 PM EST) [facility] Glucose Blood, POC 244(A) 60 - 200 mg/dL Blood Capillary blood specimen / Unknown 10/21/2024 1:43 PM EST Result Abbey Lagos MD POINT OF CARE TEST ENTER/EDIT OR DERABLES Final Result * POCT Rapid COVID Ag (10/21/2024 1:38 PM EST) [facility] Rapid COVID Ag Negative Swab 10/21/2024 1:38 PM EST Result Abbey Lagos MD POINT OF CARE TEST ENTER/EDIT OR DERABLES Final Result documented in this encounter Visit Diagnoses Diagnosis Asthma with acute exacerbation, unspecified asthma severity, unspecified whether persistent- Primary Cough, unspecified type Lung crackles documented in this encounter Administered Medications Inactive Administered Medications - up to 3 most recent administrations Medication Order MAR Action Action Date Dose Rate Site albuterol (2.5 MG/3ML) 0.083% nebulizer solution 2.5 mg 2.5 mg, Nebulization, Once, On Sun10/21/24 at 1400, For 1 doseIndications:Cough, unspecified type Given 10/21/2024 2:00 PM EST 2.5 mg documented in this encounter Additional Health Concerns Assessment Noted Time PHQ-9 Depression Total Score: 16 024 3:45 PM EDT documented as of this encounter Care Teams Superintendent Stevedoring Relationship Specialty Start Date End Date Love Garcia MD [address] [place] [address] PCP - General Family Medicine 09/14/20 documented as of this encounter
--- OUTSIDE RECORDS SUMMARY | 2024-10-21 18:18 | XMS_ITS | Encounter Summary ---
Author Organization [employer] Address [address] [place] [address] 7 [place] [address] Care Team Providers Care Cable Layer Name Role Phone Love Garcia MD Primary Care Provider [phone] Reason for Visit * Reason Comments Med Refill Encounter Details Date Type Department Care Team ([facility] st Contact Info) Description 03/10/2023 Refill [facility] MEDICINE [address] [place] [address] [phone] Love Garcia MD [address] [place], [place] [phone] Social History Tobacco Use Types Packs/Day Years [...] documented as of this encounter Care Teams Cable Layer Relationship Specialty Start Date End Date Love Garcia MD [address] [place] [phone] PCP - General Family Medicine 09/14/20 documented as of this encounter
--- OUTSIDE RECORDS SUMMARY | 2024-10-21 18:18 | XMS_ITS | Encounter Summary ---
Author Organization [employer] Address [address] [place] [address] 7t [place] [address] Care Team Providers Care Crawler Dragline Operator Name Role Phone Love Garcia MD Primary Care Provider [phone] Reason for Visit * Reason Comments Med Refill Encounter Details Date Type Department Care Team ([facility] st Contact Info) Description 02/06/[address] [facility] MED[facility]INE [address] [place], [place] [phone] Love Garcia MD [address] [place] [address] Social History Tobacco Use Types Packs/Day Years [...] suspected to have Coronavirus/COVID-19? No / Unsure 01/26/2023 1:22 PM EDT documented as of this encounter Plan of Treatment Not on file documented as of this encounter Visit Diagnoses Not on filedocumented in this encounter Additional Health Concerns Assessment Noted Time PHQ-9 Depression Total Score: 14 023 11:44 AM EST documented as of this encounter Care Teams Crawler Dragline Operator Relationship Specialty Start Date End Date Love Garcia MD [address] [place] [address] PCP - General Family Medicine 09/14/20 documented as of this encounter
--- OUTSIDE RECORDS SUMMARY | 2024-10-21 18:18 | XMS_ITS | Encounter Summary ---
Author Organization [employer] Address [address] [place] [address] 7t [place] [address] Care Team Providers Care Manager Technical Name Role Phone Love Garcia MD Primary Care Provider [phone] Reason for Visit * Reason Onset Date Comments Med Refill 10/08/2024 Encounter Details Date Type Department Care Team ([facility] st Contact Info) Description 10/08/2024 Refill [facility] [address] [place], [place] [phone] Love Garcia MD [address] [place], [place] [phone] Type 2 diabetes mellitus with hyperglycemia, with long-term current use of insulin ([facility]) Social History Tobacco Use Types Packs/Day Years [...] encounter Miscellaneous Notes * Telephone Encounter - Mikaela Orona RN - 10/09/2024 9:28 AM EST Tc to [facility] to confirm that the glucometer supplies have been sent pharmacy and does not require a PA. Talita @ [facility] reports that all the supplies are covered except the alcohol swaps which have an co-pay of $3. Talita also reports they have one refill here for pt for the Lantus which had an original co-pay of 70 dollars but they have pt in their loyalty program which makes the copay$24.87. Tc to pt to let them know they can cloth picker their supplies at their convenience at [facility] and made aware of copay cost for alcohol swabs and Lantus medication. Pt expressed understandingand no further questions or concerns at this time. * Telephone Encounter - Mikaela Orona RN - 10/08/2024 3:43 PM EST Tc to [facility] to confirm that freestyle lite will be covered by pt insurance and reports okay to send. Glucometer pended to PCP for review. * Telephone Encounter - Mikaela Orona RN - 10/08/2024 1:55 PM EST Tc to pt reports they need a new glucometer kit and have been out of one for a long time due to thelast one broke. Pt reports they've been using their glucometer but does not to use up theirsupplies. Informed pt we'll send message to PCP and return call once we receive updates. Pt verbalized understanding and no further questions or concerns at this time * Telephone Encounter - Ammon Morrow - 10/08/2024 12:42 PM EST Tc from pt requesting Glucometer Kit. Pt says that she doesn't have anything and that her Old one Broke so she isn't able to use it anymore. Contact pt at [phone] documented in this encounter Plan of Treatment Not on file documented as of this encounter Visit Diagnoses Diagnosis Type 2 diabetes mellitus with hyperglycemia, with long-term current use of insulin ([facility]) documented in this encounter Additional Health Concerns Assessment Noted Time PHQ-9 Depression Total Score: 16 11/11/ 024 3:45 PM EDT documented as of this encounter Care Teams Manager Technical Relationship Specialty Start Date End Date Love Garcia MD [address] [place] [address] PCP - General Family Medicine 09/14/20 documented as of this encounter
== END 2024-10-21 14:39 | disposition home or self-care (01) ==
LOC: HO.HHCX 14:38
PROVIDERS: Visit Provider Internal Medicine Geriatric Medicine
DX: R05.9 Cough, unspecified (principal); J45.21 Mild intermittent asthma with (acute) exacerbation
CPT/HCPCS: 71046

== ENCOUNTER → 2024-10-21 14:38 | Outpatient (BNV) | payer MEDICARE, SELFPAY | PROVIDERS: Visit Provider Radiology Diagnostic Radiology | DX: R06.2 Wheezing (principal) | CPT/HCPCS: 71046 ==

== ENCOUNTER 2024-11-24 16:21 | Outpatient (REF) | payer MEDICARE, SELFPAY ==
--- OUTSIDE RECORDS SUMMARY | 2024-11-24 17:59 | XMS_ITS | Encounter Summary ---
Author Organization [employer] Address [address] [facility] 7t [place] [address] Care Team Providers Care Assistant Fitness Manager Name Role Phone Love Garcia MD Primary Care Provider [phone] Encounter Details Date Type Department Care Team (Late st Contact Info) Description 01/31/2024 Abstract [facility] 230 [place], [place] [phone] Love Garcia MD 230 [place], [place] [phone] Social History Tobacco Use Types Packs/Day Years [...] documented as of this encounter Care Teams Assistant Fitness Manager Relationship Specialty Start Date End Date Love Garcia MD [address] [place] [address] PCP - General Family Medicine 09/14/20 documented as of this encounter
--- OUTSIDE RECORDS SUMMARY | 2024-11-24 17:59 | XMS_ITS | Encounter Summary ---
Author Organization [employer] Address [address] [facility] 7t [place] [address] Care Team Providers Care Compliance Professional Name Role Phone Love Garcia MD Primary Care Provider [phone] Encounter Details Date Type Department Care Team ([facility] st Contact Info) Description 01/03/2024 Orders Only [facility]INE 230 [place], [place] [phone] Love Garcia MD 230 [place], [place] [phone] Social History Tobacco Use Types Packs/Day Years [...] documented as of this encounter Care Teams Compliance Professional Relationship Specialty Start Date End Date Love Garcia MD [address] [place] [address] PCP - General Family Medicine 09/14/20 documented as of this encounter
--- OUTSIDE RECORDS SUMMARY | 2024-11-24 17:59 | XMS_ITS | Encounter Summary ---
Author Organization [employer] Address [address] [place] [address] 7t [place] [address] Care Team Providers Care Card Punching Machine Operator Name Role Phone Love Garcia MD Primary Care Provider [phone] Reason for Visit * Reason Comments Med Refill Encounter Details Date Type Department Care Team ([facility] st Contact Info) Description 02/06/2023 Refill [facility]INE 230 [place], [place] [phone] Love Garcia MD [address] [place] [address] Social History Tobacco Use Types Packs/Day Years [...] documented as of this encounter Care Teams Card Punching Machine Operator Relationship Specialty Start Date End Date Love Garcia MD [address] [place] [address] PCP - General Family Medicine 09/14/20 documented as of this encounter
--- OUTSIDE RECORDS SUMMARY | 2024-11-24 17:59 | XMS_ITS | Encounter Summary ---
Author Organization [employer] Address [address] [place] [address] 7t [place] [address] Care Team Providers Care Rebar Fabricator Name Role Phone Love Garcia MD Primary Care Provider [phone] Reason for Visit * Reason Onset Date Comments Med Refill 08/08/2023 Encounter Details Date Type Department Care Team ([facility] st Contact Info) Description 08/08/2023 Telephone [facility] MED[facility]INE 230 [place], [place] [phone] Love Garcia MD 230 [place], [place] [phone] Med Refill Social History Tobacco Use Types [...] documented as of this encounter Care Teams Rebar Fabricator Relationship Specialty Start Date End Date Love Garcia MD [address] [place] [address] PCP - General Family Medicine 09/14/20 documented as of this encounter
--- OUTSIDE RECORDS SUMMARY | 2024-11-24 17:59 | XMS_ITS | Encounter Summary ---
Author Organization [employer] Address [address] [place] [address] 7t [place] [address] Care Team Providers Care Gas Line Installer Name Role Phone Love Garcia MD Primary Care Provider [phone] Encounter Details Date Type Department Care Team ([facility] st Contact Info) Description 11/03/2022 Orders Only [facility] MEDICINE 230 [place], [place] [phone] Love Garcia MD [address] [place], [place] [phone] Type 2 diabetes mellitus with hyperglycemia, with long-term current use of insulin ([facility] [place]) (Primary Dx) Social History Tobacco Use Types [...] hyperglycemia, with long-term current use of insulin ([facility] [place])- Primary documented in this encounter Additional Health Concerns Assessment Noted Time PHQ-9 Depression Total Score: 14 023 11:44 AM EST documented as of this encounter Care Teams Gas Line Installer Relationship Specialty Start Date End Date Love Garcia MD [address] [place] [address] PCP - General Family Medicine 09/14/20 documented as of this encounter
--- OUTSIDE RECORDS SUMMARY | 2024-11-24 17:59 | XMS_ITS | Encounter Summary ---
Author Organization [email or web address] Address [address] [facility] 7t [place] [address] Care Team Providers Care Residential Real Estate Assistant Name Role Phone Love Garcia MD Primary Care Provider Encounter Details Date Type Department Care Team ([facility] st Contact Info) Description 06/05/2024 Orders Only [facility] MEDICINE 230 [place], [place] [phone] Love Garcia MD 230 [place], [place] [phone] Social History Tobacco Use Types Packs/Day Years [...] documented as of this encounter Care Teams Residential Real Estate Assistant Relationship Specialty Start Date End Date Love Garcia MD [address] [place] [address] PCP - General Family Medicine 09/14/20 documented as of this encounter
--- OUTSIDE RECORDS SUMMARY | 2024-11-24 17:59 | XMS_ITS | Encounter Summary ---
Author Organization [employer] Address [address] [place] [address] 7t [place] [address] Care Team Providers Care Manager Payer Name Role Phone Love Garcia MD Primary Care Provider [phone] Encounter Details Date Type Department Care Team (Late st Contact Info) Description 04/27/2023 Abstract [facility] MEDICINE 230 [place], [place] [phone] Carol Donato Social History Tobacco Use Types [...] as of this encounter Care Teams Manager Payer Relationship Specialty Start Date End Date Love Garcia MD 230 [place] [address] PCP - General Family Medicine 09/14/20 documented as of this encounter
--- OUTSIDE RECORDS SUMMARY | 2024-11-24 17:59 | XMS_ITS | Encounter Summary ---
Author Organization [employer] Address [address] [facility] 7t [place] [address] Care Team Providers Care Reed Or Wind Instrument Tuner Name Role Phone Love Garcia MD Primary Care Provider [phone] Encounter Details Date Type Department Care Team (Late st Contact Info) Description 11/14/2023 Orders Only [facility] MEDICINE 230 [place], [place] [phone] Love Garcia MD 230 [place], [place] [phone] Chronic pruritus (Primary Dx) Social History Tobacco [...] EDT) Sodium 133(L) 135 - 145 mmol/L [facility] Potassium 5.0 3.3 - 5.1 mmol/L [facility] Chloride 99 96 - 108 mmol/L [facility] Carbon Dioxide 24 22 - 29 mmol/L [facility] Anion Gap 15 12 - 20 [facility] Urea Nitrogen (BUN) 24(H) 9 - 16 mg/dL [facility] Creatinine, Serum 1.64(H) 0.5 - 1.4 mg/dL [facility] Estimated Glomerular Filt Rate 32 [facility] Comment:NOTE: For -Am erican individuals, multiply the result by 1.210.Chronic Kidney Disease: Estimated GFR < 60 mL/min/1.95e3Jwerfb Kidney Disease: Estimated GFR < 15 mL/min/1.73m2 Glucose 427(HH) 60 - 115 mg/dL [facility] Comment:Critical value for t est(s): GLUR Results called to and readback by: ESSIE BROCK Person calling:Estuardo:12/03/2023 Time:1633 Calcium 10.4(H) 8.4 - 10.2 mg/dL [facility] Bilirubin, Total 0.5 0.0 - 1.0 mg/dL [facility] Aspartate Amino Transferase 39(H) 5 - 31 U/L [facility] Alanine Aminotransferase 46(H) 0 - 31 U/L [facility] Total Protein 7.9 6.5 - 8.0 g/dL [facility] Albumin Level 3.9 3.5 - 5.0 g/dL [facility] Alkaline Phosphatase 38(L) 39 - 117 U/L [facility] Blood Venous blood specimen / Unknown 12/03/2023 2:11 PM EDT 12/03/2023 4:10 PM EDT us Love Garcia MD LAB BLOOD ORDERABLES Edited Re sult - Final [facility] [address] [place] [address] [phone] documented in this encounter Visit Diagnoses Diagnosis Chronic pruritus- Primary documented in this encounter Additional Health Concerns Assessment Noted Time PHQ-9 Depression Total Score: 16 024 3:45 PM EDT documented as of this encounter Care Teams Reed Or Wind Instrument Tuner Relationship Specialty Start Date End Date Love Garcia MD [address] [place] [address] PCP - General Family Medicine 09/14/20 documented as of this encounter
--- OUTSIDE RECORDS SUMMARY | 2024-11-24 17:59 | XMS_ITS | Encounter Summary ---
Author Organization [employer] Address [address] [facility] 7t [place] [address] Care Team Providers Care Adult Education Teacher Name Role Phone Love Garcia MD Primary Care Provider [phone] Encounter Details Date Type Department Care Team (Latest Contact Info) Description 11/24/2024 Travel Social History Tobacco Use Types Packs/Day Years [...] documented as of this encounter Care Teams Adult Education Teacher Relationship Specialty Start Date End Date Love Garcia MD 230 [place] [address] PCP - General Family Medicine 09/14/20 documented as of this encounter
--- OUTSIDE RECORDS SUMMARY | 2024-11-24 17:59 | XMS_ITS | Clinical Summary ---
Author Organization [employer] Address [address] [place] [address] 7[address] [place] [address] Care Team Providers Care [employer] Name Role Phone Love Garcia MD Primary Care Provider [phone] Allergies Active Allergy Reactions Criticality Noted Date Comments Penicillin G 03/07/2017 Medications ascorbic acid (Vitamin C) 500 MG tablet take 1 tablet daily with iron 022 Active cetirizine (ZyrTEC) 10 MG tablet take 1 tablet by oral route every day Active Diclofenac Sodium 1 % gel apply 2 gram by topical route 4 times every day to the affected area(s) Active glucose blood (FREESTYLE LITE) test strip USE 1 Each by DIRECTED route 3 times every day 022 Active Multiple Vitamin (Multi-Vitamin) tablet take 1 tablet by oral route every day with food Active pramoxine-calam ine (Calahist) 1-8 % lotion apply at bedtime Active pen needle 32G x 4 mm misc Inject under the skin if needed. Use [facility] Active Super Thin Lancets misc Use 1 lancet by to skin route 3 times every day Active cyclobenzaprine (Flexeril) 5 MG tablet TAKE 1 TABLET BY MOUTH THREE TIMES DAILY FOR 10 DAYS 023 Active ferrous sulfate 325 (65 Fe) MG tablet Take 1 tablet (325 mg) by mouth every other day. 45 tablet 3 024 Active metFORMIN (Glucophage) 1000 MG tablet TAKE 1 TABLET BY MOUTH TWICE DAILY WITH MORNING AND EVENING MEALS 200 tablet 3 024 Active lisinopril 40 MG tabletIndicatio ns:Essential hypertension TAKE 1 TABLET BY MOUTH DAILY 100 tablet 3 024 Active glipiZIDE (Glucotrol) 10 MG tablet TAKE 1 TABLET BY MOUTH TWICE DAILY BEFORE MEALS 200 tablet 3 024 Active gabapentin (Neurontin) 300 MG capsule TAKE 1 CAPSULE BY MOUTH 3 TIMES DAILY 300 capsule 3 024 2024 Active omeprazole (PriLOSEC) [address] capsule TAKE 1 CAPSULE BY MOUTH DAILY BEFORE A MEAL 100 capsule 3 024 Active atorvastatin (Lipitor) 20 MG tablet Take 1 tablet (20 mg) by mouth Once per day. 90 tablet 3 024 Active metoprolol tartrate (Lopressor) 25 MG tablet Take 1 tablet (25 mg) by mouth 2 times daily. TAKE 1 TABLET BY MOUTH TWICE DAILY WITH 50MG TABLET FOR A TOTAL DOSE OF 75MG TWICE DAILY 180 tablet 3 024 Active Sure Comfort Pen [place] 31G X 5 MM misc USE DIRECTED AT BEDTIME 100 each 11 024 Active Tirzepatide (Mounjaro) 2.5 MG/0.5ML solution auto-injector Inject 2.5 mg under the skin 1 (one) time per week. 2 mL 2 024 Active FREESTYLE LITE test stripIndication s:Type 2 diabetes mellitus with hyperglycemia, with long-term current use of insulin ([facility]) Use to test blood sugar three times daily 100 each 12 025 2025 Active Lancets miscIndications :Type 2 diabetes mellitus with hyperglycemia, with long-term current use of insulin ([facility]) Use to test blood sugar three times daily 100 each 11 025 Active Alcohol Swabs 70 % padsIndications :Type 2 diabetes mellitus with hyperglycemia, with long-term current use of insulin ([facility]) Use to test blood sugar three times daily 100 each 11 025 Active Blood Glucose Monitoring Suppl (FreeStyle [place] Lite) w/Device kit Use to test blood sugar three times daily 1 kit 025 Active albuterol (2.5 MG/3ML) 0.083% nebulizer solutionIndicat ions:Cough, unspecified type,Asthma with acute exacerbation, unspecified asthma severity, unspecified whether persistent,Lung crackles Take 3 mL (2.5 mg) by nebulization every 6 (six) hours if needed for wheezing. 75 mL 2025 Active albuterol 108 (90 Base) MCG/ACT [...] of candidiasis. Do not swallow. 1 each 2025 Active traZODone (Desyrel) 50 MG tabletIndicatio ns:Primary insomnia TAKE 1 TABLET BY MOUTH EVERY DAY AT BEDTIME 90 tablet Active metoprolol tartrate (Lopressor) 50 MG tabletIndicatio ns:Essential hypertension TAKE 1 TABLET BY MOUTH TWICE DAILY WITH 25 MG TABLET WITH MEALS 200 tablet 2 Active insulin glargine (Lantus SoloStar) 100 UNIT/ML pen Inject 42 Units under the skin at bedtime. 15 mL Active hydroCHLOROthia zide (HYDRODiuril) 25 MG tablet Take 1 tablet (25 mg) by mouth Once per day. 90 tablet 3 025 2025 Active sertraline (Zoloft) 50 MG tablet Take 1 tablet (50 mg) by mouth Once per day. 90 tablet 3 025 2025 Active traZODone (Desyrel) 50 MG tabletIndicatio ns:Primary insomnia Take 1 tablet (50 mg) by mouth at bedtime. 90 tablet 3 024 2024 Discontinued metoprolol tartrate (Lopressor) 50 MG tabletIndicatio ns:Essential hypertension TAKE 1 TABLET BY MOUTH TWICE DAILY WITH MEALS TAKE DOSE WITH 25 MG FOR A TOTAL DOSE OF 75 MG 200 tablet 2 024 2024 Discontinued hydroCHLOROthia zide (HYDRODiuril) 25 MG tablet Take 1 tablet (25 mg) by mouth Once per day. 90 tablet 3 024 2024 Discontinued(R eorder (will not trigger notification to Pharmacy)) doxycycline (Vibra-Tabs) 100 MG tablet Take 1 tablet (100 mg) by mouth 2 times daily for 5 days. Take with a full glass of water and do not lie down for at least 30 minutes after. 10 tablet 025 2024 predniSONE (Deltasone) 20 MG tablet Take 1 tablet (20 mg) by mouth Once per day for 5 days. 5 tablet 025 2024 insulin glargine (Lantus SoloStar) 100 UNIT/ML pen INJECT 38 UNITS SUBCUTANEOUSLY EVERY EVENING 15 mL 11 025 2024 Discontinued(R eorder (will not trigger notification to Pharmacy)) insulin glargine (Lantus SoloStar) 100 UNIT/ML pen INJECT 38 UNITS SUBCUTANEOUSLY EVERY EVENING 15 mL 11 025 2024 Discontinued(R eorder (will not trigger notification to Pharmacy)) Active Problems Problem Noted Date Diagnosed Date [...] derangement 03/07/2017 08/03/2024 Left-sided headache 03/07/2017 08/03/20 24 Encounters Date Type Department Care Team Description 11/24/2024 3:30 PM EDT Office Visit [facility] [address] [place] [phone] Love Garcia MD Type 2 diabetes mellitus with hyperglycemia, with long-term current use of insulin ([facility]) (Primary Dx); Chronic pain of both shoulders 11/24/2024 Travel 11/17/2024 Refill [facility] [address] [place], [place] [phone] Love Garcia MD Essential hypertension 11/03/2024 Refill [facility] [address] [place], [place] [phone] Love Garcia MD Primary insomnia 10/24/2024 Telephone [facility] [address] [place], [place] [phone] Lambert Lagos MD Follow-up 10/23/2024 Telephone [facility] [address] [place] [phone] Lambert Lagos MD 10/21/2024 1:20 PM EST [facility] [address] [phone] Lambert Lagos MD Asthma with acute exacerbation, unspecified asthma severity, unspecified whether persistent (Primary Dx); Cough, unspecified type; Lung crackles 10/21/2024 Telephone [facility] [address] [place] [phone] Geena Alonzo, RN Results 10/20/2024 Telephone [facility] [address] [place] [phone] Love Garcia MD Nurse Triage 10/08/[address] [address] Love Garcia MD Type 2 diabetes mellitus with hyperglycemia, with long-term current use of insulin ([facility]) 09/17/2024 Telephone [facility] [address] [place] [phone] Love Garcia MD Nurse Triage 09/05/[address] [address] Love Garcia MD from Last 3 Months Immunizations Name Administration [...] Sign Reading Time Taken Comments Blood Pressure 159/73 11/24/2024 3:50 PM EDT Pulse 87 11/24/2024 3:50 PM EDT Temperature 36.3 ??C (97.3 ??F) 11/24/2024 3:50 PM ED T Respiratory Rate 16 11/24/2024 3:50 PM EDT Oxygen Saturation 99% 11/24/2024 3:50 PM EDT Inhaled Oxygen Concentration - - Weight 80.7 kg (178 lb) 11/24/2024 3:50 PM EDT Height 157.5 cm (5' 2 ) 11/24/2024 3:50 PM EDT Body Mass Index 32.56 11/24/2024 3:50 PM EDT Plan of Treatment Health Maintenance Due Date [...] exists Depression Monitoring (PHQ-9) 05/14/2024 11/12/2023, 11/12/2023 Depression Screening 11/11/2024 11/12/2023, 11/12/19 24 Diabetes: Urine Protein Screening 11/11/2024 11/12/2023, 01/02/2022, 11/06/2019 Lipid Panel 11/11/2024 11/12/2023, 01/02/2022 SDOH Screening 11/11/2024 11/12/2023 Eye Exam 01/26/2025 01/26/2023, 0609/2022, 01/26/2023, Additional history exists Diabetes: Hemoglobin A1C 02/23/2025 025, 08/01/2024, 11/12/2023, Additional history exists Tobacco Screening 11/24/2025 11/24/2024 DTaP/Tdap/Td Vaccines (2 - Td or Tdap) [...] Procedure Name Priority Date/Time Associated Diagnosis Comments POCT GLUCOSE Routine 11/24/2024 3:52 PM EDT Type 2 diabetes mellitus with hyperglycemia, with long-term current use of insulin ([facility]) POCT GLYCATED HEMOGLOBIN, TOTAL Routine 11/24/2024 3:51 PM EDT Type 2 diabetes mellitus with hyperglycemia, with long-term current use of insulin ([facility]) XR CHEST 2 VIEWS Routine 10/21/2024 2:38 [...] 10/21/2024 1:38 PM EST Cough, unspecified type ALBUMIN, RANDOM URINE W/CREATININE Routine 11/12/2023 3:50 [...] Recently Relevant to Health Maintenance Results * (ABNORMAL) POCT Glucose (11/24/2024 3:52 PM EDT) Only the most recent of2 resultswithin the time period is included. Glucose Blood, POC 273(A) 60 - 200 mg/dL Blood Capillary blood specimen / Unknown 11/24/2024 3:52 PM EDT us Love Garcia MD POINT OF CARE TEST ENTER/EDIT ORDERABLES Final Result * (ABNORMAL) POCT HGB A1C (11/24/2024 3:51 PM EDT) Hemoglobin A1C 10.7(A) 4.0 - 6.0 % Blood 11/24/2024 3:51 PM EDT us Love Gracia MD POINT OF CARE TEST ENTER/EDIT ORDERABLES Final Result * XR Chest 2 Views (10/21/2024 2:38 PM EST) Anatomical Region Laterality Modality Chest Radiographic Chrissy ging 10/21/2024 2:38 PM EST Narrative 10/21/2024 3:30 PM EST ?[facility] ?[address] ?[place] [address] ?XRay Report ? Signed ? Patient: Mclean,Ada ?MR#: [id number] ? : 1960 ?Acct:[id number] ? Age/Sex: 63 / F ?ADM Date: 10/21/24 ? Loc: HO.HHCX ? Attending Dr: Lambert Lagos MD ? Ordering Physician: Lambert Lagos MD ?? Date of Service: 10/21/24 ?? Procedure(s): XR chest 2V ?? Accession Number(s): [id number] ? cc: Lambert Lagos MD ? EXAMINATION: [...] Peterson MD ??10/21/2024 03:27 PM ?? EST ? Dictated By: ?Sarmad Ellis MD ? Signed By: ?<Electronically signed by Sarmad Stanford MD in OV> ? 10/21/24 1527 ? DD/ 1438 ? TD/TT: 10/21/24 1500 ? Outpatient Therapist: ? Procedure Note Manuel, Penny - 10/21/2024 [facility] [address] [place] [address] XRay Report Signed Patient: McleanKelle#: [id number] : 1960Acct:[id number] Age/Sex: 63 / FADM Date: 10/21/24 Loc: HO.HHCX Attending Dr: Lambert Lagos MD Ordering Physician: Lambert Lagos MD Date of Service: 10/21/24 Procedure(s): XR chest 2V Accession Number(s): [id number] cc: Lambert Lagos MD EXAMINATION: XR CHEST [...] 10/21/24 1527 DD/ 1438 TD/TT: 10/21/24 1500 Outpatient Therapist: us Lambert Lagos MD IMG XR PROCEDURES Final Result * Influenza B (ID NOW Rapid Molecular) (10/21/2024 1:44 PM EST) Influenza B Negative Negative, Indeterminate [facility] Swab 10/21/2024 1:44 PM EST us Lambert Lagos MD POINT OF CARE TEST ENTER/EDIT OR DERABLES Final Result [facility] [address] [place] [phone] * Influenza A (ID NOW Rapid Molecular) (10/21/2024 1:44 PM EST) Pathologist [facility] Influenza A Negative Negative, Indeterminate [facility] Swab 10/21/2024 1:44 PM EST us Lambert Lagos MD POINT OF CARE TEST ENTER/EDIT OR DERABLES Final Result Performing Organization Address [facility] de Phone Number [facility] [address] [place] [phone] * POCT Rapid COVID Ag (10/21/2024 1:38 PM EST) Pathologist [facility] [place] Rapid COVID Ag Negative Swab 10/21/2024 1:38 PM EST Lambert Lagos MD POINT OF CARE TEST ENTER/EDIT OR DERABLES Final Result * (ABNORMAL) Albumin, Random Urine W/Creatinine (11/12/2023 3:50 PM EDT) [facility] Creatinine, Urine 31.53 mg/dL [facility] Microalbumin Urine 22.0 mg/L [facility] Microalbum Creatinine Ratio Ur 69.7(H) <30 ug/mg cr [facility] Comment:Albumin/Creatinine R atio Reference Ranges: Normal: < 30 ug/mg creatinine Microalbuminuria: 30 - 300 ug/mg creatinineClinical Albuminuria: > 300 ug/mg creatinine Urine (Urine, Random) 11/12/2023 3:50 PM EDT 11/12/2023 5:35 PM EDT Love Garcia MD LAB URINE ORDERABLES Final Res ult Performing Organization Address [facility] Co de Phone Number [facility] [address] [place] [phone] * (ABNORMAL) Lipid Panel, Standard (11/12/2023 3:50 PM EDT) Pathologist [facility] Triglycerides 105 <150 mg/dL [facility] Comment:Desirable Triglyceri de: less than 150 mg/dLBorderline High Triglyceride 150-199 mg/dLHigh Triglyceride: 200-499 mg/dLVery High Triglyceride: greater than or equal to 5OO mg/dL Cholesterol 162 <200 mg/dL [facility] Comment:Desirable Cholestero l: less than 200 mg/dLBorderline High Cholesterol: 200-239 mg/dLHigh Cholesterol: greater than 239 mg/dL LDL Cholesterol Calculated 102(H) <100 mg/dL [facility] Comment:Desirable LDL: less than 100 mg/dLNear Optimal/Above Optimal LDL: 110- 129 mg/dLBorderline High LDL: 130-159 mg/dLHigh LDL: 160-189 mg/dLVery High LDL: greater than or equal to 190 mg/dL HDL Cholesterol 39(L) >40 mg/dL [facility] Comment:Desirable HDL: great er than 40 mg/dL Note: This HDL assay may give artificially low results in patients with liver disease. Blood Venous blood specimen / Unknown 11/12/2023 3:50 PM EDT 11/12/2023 5:27 PM EDT Love Garcia MD LAB BLOOD ORDERABLES Final Res ult [facility] [address] [place] [phone] * Mammography Report 1 (02/03/2022 1:42 [...] HEPATITIS C ANTIBODY NON-REACT NISH NON-REACT NISH [facility] INDEX 0.03 <1.00 [facility] Comment: ?? HCV antibody was non-reactive. There is no laboratory ?? evidence of HCV infection. ?? In most cases, no further action is required. However, if recent HCV exposure is suspected, a test for HCV RNA (test code 00605) is suggested. ?? For additional information please refer to [email or web address] (This link is being provided for informational/ educational purposes only.) ?? 01/02/2022 11:4 2 AM EDT Love Garcia MD HISTORICAL/NON ORDERABLE LABS Final Result [facility] [address] * Hm Colonoscopy (08/08/2017 1:25 PM EST) Historical Provider HEALTH MAINTENANCE Final Result from Last 3 Months or Most Recently Relevant to Health Maintenance [place] [id number] Care Teams [employer] Relationship Specialty Start Date End Date Love Garcia MD [address] [place] [address] PCP - General Family Medicine 09/14/20
--- OUTSIDE RECORDS SUMMARY | 2024-11-24 17:59 | XMS_ITS | Encounter Summary ---
Author Organization [employer] Address [address] [place] [address] 7[address] [place] [address] Care Team Providers Care [employer] S[employer]er Name Role Phone Love Garcia MD Primary Care Provider [phone] Reason for Referral * Consultation (STAT) - Authorized Specialty Diagnoses / Procedures Referred By Juanis t Referred To Contact Optometry Diagnoses Type 2 diabetes mellitus with hyperglycemia, with long-term current use of insulin (CMS/HCC) Love Garcia MD [address] [place] [address] Phone: tel: fax: Referral ID Status Reason Start Date Expiration Date Visits Requested Visits Authorized [id number] Authorized Specialty Services Required 11/24/2024 11/24/2025 1 1 Reason for Visit * Reason Comments Diabetes Encounter Details Date Type Department Care Team ([facility] st Contact Info) Description 11/24/2024 3:30 PM EDT Office Visit [facility] [address] [place], [place] [phone] Love Garcia MD [address] [place], [place] [phone] Type 2 diabetes mellitus with hyperglycemia, with long-term current use of insulin (CMS/HCC) (Primary Dx); Chronic pain of both shoulders Social History Tobacco Use Types Packs/Day Years [...] Mass Index 32.56 11/24/2024 3:50 PM EDT documented in this encounter Plan of Treatment Scheduled Orders Name Type Priority Associated Diagnoses Orde r Schedule Lipid Panel, Standard Lab Routine Type 2 diabetes mellitus with hyperglycemia, with long-term current use of insulin (CMS/[facility]) Expected: 11/24/2024 (Approximate), Expires: 11/24/2025 Albumin, Random Urine W/Creatinine Lab Routine Type 2 diabetes mellitus with hyperglycemia, with long-term current use of insulin (CMS/HCC) Expected: 11/24/2024 (Approximate), Expires: 11/24/2025 HIV-1/2 Antigen and Antibodies, Fourth Generation, with Reflexes Lab Routine Type 2 diabetes mellitus with hyperglycemia, with long-term current use of insulin (CMS/HCC) Expected: 11/24/2024 (Approximate), Expires: 11/24/2025 Hepatitis C Antibody with Reflex to HCV, RNA, Quantitative, Real-Time PCR Lab Routine Type 2 diabetes mellitus with hyperglycemia, with long-term current use of insulin (CMS/HCC) Expected: 11/24/2024, Expires: 11/24/2025 TSH W/Reflex to FT4 Lab Routine Type 2 diabetes mellitus with hyperglycemia, with long-term current use of insulin (CMS/HCC) Expected: 11/24/2024 (Approximate), Expires: 11/24/2025 Sed Rate by Modified [place] Lab Routine Type 2 diabetes mellitus with hyperglycemia, with long-term current use of insulin (CMS/HCC) Expected: 11/24/2024, Expires: 11/24/2025 C-reactive Protein Lab Routine Type 2 diabetes mellitus with hyperglycemia, with long-term current use of insulin (CMS/HCC) Expected: 11/24/2024 (Approximate), Expires: 11/24/2025 CBC auto differential Lab Routine Type 2 diabetes mellitus with hyperglycemia, with long-term current use of insulin (CMS/HCC) Expected: 11/24/2024 (Approximate), Expires: 11/24/2025 XR Shoulder 2+ Views Right Imaging Routine Chronic pain of both shoulders Expected: 11/24/2024, Expires: 11/24/2025 XR Shoulder 2+ Views Left Imaging Routine Chronic pain of both shoulders Expected: 11/24/2024, Expires: 11/24/2025 Scheduled Referrals Name Type Priority Associated Diagnoses Orde r Schedule Referral to Optometry, Internal Outpatient Referral STAT Type 2 diabetes mellitus with hyperglycemia, with long-term current use of insulin ([facility]) Expected: 11/24/2024 (Approximate), Expires: 11/24/2025 documented as of this encounter Procedures Procedure Name Priority Date/Time Associated Diagnosis Comments POCT GLUCOSE Routine 11/24/2024 3:52 PM EDT Type 2 diabetes mellitus with hyperglycemia, with long-term current use of insulin ([facility]) POCT GLYCATED HEMOGLOBIN, TOTAL Routine 11/24/2024 3:51 PM EDT Type 2 diabetes mellitus with hyperglycemia, with long-term current use of insulin ([facility]) documented in this encounter Results * (ABNORMAL) POCT Glucose (11/24/2024 3:52 PM EDT) Glucose Blood, POC 273(A) 60 - 200 mg/dL Blood Capillary blood specimen / Unknown 11/24/2024 3:52 PM EDT Result [facility] Love Garcia MD POINT OF CARE TEST ENTER/EDIT ORDERABLES Final Result * (ABNORMAL) POCT HGB A1C (11/24/2024 3:51 PM EDT) Hemoglobin A1C 10.7(A) 4.0 - 6.0 % Blood 11/24/2024 3:51 PM EDT Love Garcia MD POINT OF CARE TEST ENTER/EDIT ORDERABLES Final Result documented in this encounter Visit Diagnoses Diagnosis Type 2 diabetes mellitus with hyperglycemia, with long-term current use of insulin ([facility])- Primary Chronic pain of both shoulders documented in this encounter Additional Health Concerns Assessment Noted Time PHQ-9 Depression Total Score: 16 2 024 3:45 PM EDT documented as of this encounter Care Teams [employer] S[employer]er Relationship Specialty Start Date End Date Love Garcia MD [address] [place] [phone] PCP - General Family Medicine 09/14/20 documented as of this encounter
--- OUTSIDE RECORDS SUMMARY | 2024-11-24 17:59 | XMS_ITS | Encounter Summary ---
Author Organization [employer] Address [address] [facility] [address] [place] [address] Care Team Providers Care [employer]canizing Press Operator Name Role Phone Love Garcia MD Primary Care Provider [phone] Encounter Details Date Type Department Care Team (Late st Contact Info) Description 01/03/2024 Orders Only [facility] [address] [place] [address] ProviderKatie MD Social History Tobacco Use Types [...] documented as of this encounter Care Teams [employer]izing Press Operator Relationship Specialty Start Date End Date Love Garcia MD [address] [place] [address] PCP - General Family Medicine 09/14/20 documented as of this encounter
--- OUTSIDE RECORDS SUMMARY | 2024-11-24 17:59 | XMS_ITS | Encounter Summary ---
Author Organization [employer] Address [address] [place] [address] [address] [place] [address] Care Team Providers Care Benzene Washer Name Role Phone Love Garcia MD Primary Care Provider [phone] Reason for Visit * Reason Onset Date Comments Call Back Request 01/14/2024 Encounter Details Date Type Department Care Team ([facility] st Contact Info) Description 01/14/2024 Telephone [facility] [address] [place], [place] [phone] Love Garcia MD [address] [place], [place] [phone] Call Back Request Social History Tobacco Use [...] 4:00 PM EDT TC placed to pt [phone] in regards to below message. Pt informed [...] a cholesterol medication. Please contact pt at [phone] documented in this encounter Plan of Treatment Not on file documented as of this encounter Visit Diagnoses Not on filedocumented in this encounter Additional Health Concerns Assessment Noted Time PHQ-9 Depression Total Score: 16 024 3:45 PM EDT documented as of this encounter Care Teams Benzene Washer Relationship Specialty Start Date End Date Love Garcia MD [address] [place] [phone] PCP - General Family Medicine 09/14/20 documented as of this encounter
--- OUTSIDE RECORDS SUMMARY | 2024-11-24 17:59 | XMS_ITS | Encounter Summary ---
Author Organization [employer] Address [address] [place] [address] 7t [place] [address] Care Team Providers Care Guard Lieutenant Name Role Phone Love Garcia MD Primary Care Provider [phone] Reason for Visit * Reason Onset Date Comments Reschedule 01/14/2024 Encounter Details Date Type Department Care Team ([facility] st Contact Info) Description 01/14/2024 Telephone [facility] MEDICINE [address] [place], [place] [phone] Love Garcia MD [address] [place], [place] [phone] Reschedule Social History Tobacco Use Types Packs/Day [...] Miscellaneous Notes * Telephone Encounter - Liliane Moneg - 01/14/2024 2:39 PM EDT Tc from pt requesting to reschedule 01/13 follow up appointment. Automobile Damage Appraiser attempted tos schedule but no availability. Please contact pt at [phone] documented in this encounter Plan of Treatment Not on file documented as of this encounter Visit Diagnoses Not on filedocumented in this encounter Additional Health Concerns Assessment Noted Time PHQ-9 Depression Total Score: 16 024 3:45 PM EDT documented as of this encounter Care Teams Guard Lieutenant Relationship Specialty Start Date End Date Love Garcia MD [address] [place] [address] PCP - General Family Medicine 09/14/20 documented as of this encounter
--- OUTSIDE RECORDS SUMMARY | 2024-11-24 17:59 | XMS_ITS | Encounter Summary ---
Author Organization [employer] Address [address] [place] [address] 7 [place] [address] Care Team Providers Care Raw Silk Grader Name Role Phone Love Garcia MD Primary Care Provider [phone] Reason for Visit * Reason Comments Med Refill Encounter Details Date Type Department Care Team ([facility] st Contact Info) Description 03/10/2023 Refill [facility] MEDICINE [address] [place] [address] [phone] Love Garcia MD 230 [place], [place] [phone] Social History Tobacco Use Types Packs/Day Years [...] documented as of this encounter Care Teams Raw Silk Grader Relationship Specialty Start Date End Date Love Garcia MD [address] [place] [address] PCP - General Family Medicine 09/14/20 documented as of this encounter
[2024-11-24 18:00] LABS: MANUAL DIFF FLAG NO
[2024-11-24 18:16] LABS: Basophils Percent Auto 0.5 % (0-2); Eosinophils Absolute Auto 0.2 X10*3/uL (0.0-0.4); Eosinophils Percent Auto 2.5 % (0-4); Hematocrit 33.4 % (37.0-47.0); Hemoglobin 10.5 g/dl (12.0-16.0); Imm Gran Abs Auto 0.04 X10*3/uL (0.00-0.03); Imm Gran Pct Auto 0.6 % (0.0-0.4); Lymphocytes Percent Auto 16.1 % (20-40); Mean Corpuscular HGB Conc 31.4 g/dl (31.0-35.0); Mean Corpuscular Hemoglobin 26.1 pg (27.0-33.0); Mean Corpuscular Volume 83.1 fL (80.0-98.0); Mean Platelet Volume 12.3 fL (9.4-12.3); Monocytes Absolute Auto 0.6 X10*3/uL (0.1-1.2); Monocytes Percent Auto 8.7 % (2-11); Neutrophils Absolute Auto 4.6 x10*3/uL (2.0-8.3); Neutrophils Percent Auto 71.6 % (45-73); Platelet Count 186 X10*3/uL (160-400); Red Blood Count 4.02 X10*6/uL (4.20-5.50); White Blood Count 6.4 X10*3/uL (4.8-10.8)
[2024-11-24 18:37] LABS: Creatinine Urine 95.66 mg/dL
[2024-11-24 18:45] LABS: C Reactive Protein 1.34 mg/dL (< or = 0.50); Cholesterol 164 mg/dL (<200); HDL Cholesterol 33 mg/dL (>40); LDL Cholesterol Calculated 101 mg/dL (<100); Triglycerides 151 mg/dL (<150)
[2024-11-24 19:01] LABS: TSH reflex Free T4 0.76 uIU/mL (0.32-4.0)
[2024-11-24 19:09] LABS: Erythrocyte Sedimentation Rate 44 MM/HR (0-20)
[2024-11-25 08:06] LABS: HIV AB/AG Nonreactive (Nonreactive); ~HepC Num1 0.21 S/CO (0.00-0.79); ~Hepatitis C Antibody Nonreactive (Nonreactive)
== END 2024-11-24 16:22 | disposition home or self-care (01) ==
LOC: HO.HHCL 16:21
PROVIDERS: Visit Provider General Practice
DX: E11.65 Type 2 diabetes mellitus with hyperglycemia (principal); Z79.4 Long term (current) use of insulin
CPT/HCPCS: 36415; 80061; 82043; 82570; 84443; 85025; 85652; 86140; 86803; 87389

== ENCOUNTER 2024-11-28 14:55 | Outpatient (REF) | payer MEDICARE, SELFPAY ==
--- NOTE | ~2024-11-28 | XR_ITS ---
EXAMINATION: XR SHOULDER, LEFT CLINICAL INFORMATION: pain with overhead motion COMPARISON: June 09, 2019. TECHNIQUE: AP external rotation, Grashey, scapular Y, and axillary views of the left shoulder. FINDINGS: There is a 1 cm superior displaced clavicle with respect to the acromion. Focal calcifications in the supraspinatus tendon insertion, greater tuberosity. Exostosis in the inferior aspect midportion of the clavicle. No acute cortical disruption. Glenohumeral joint is well seated in the joint spaces. 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 Tendinosis versus tendinopathy, supraspinatus. Electronically signed by: Sarmad Peterson MD 11/28/2024 03:58 PM EDT
--- NOTE | ~2024-11-28 | XR_ITS ---
EXAMINATION: XR SHOULDER, RIGHT CLINICAL INFORMATION: pain with overhead motion COMPARISON: June 09, 2019. TECHNIQUE: AP external rotation, Grashey, scapular Y, and axillary views of the right shoulder. FINDINGS: Sclerosis of the articular surface of the acromioclavicular joint with the subchondral cyst formation. No acute cortical disruption or malalignment. XR/XR shoulder RT min 2V IMPRESSION: Degenerative changes, acromioclavicular joint. Electronically signed by: Sarmad Peterson MD 11/28/2024 03:56 PM EDT
--- OUTSIDE RECORDS SUMMARY | 2024-11-28 16:23 | XMS_ITS | Encounter Summary ---
Author Organization [employer] Address [address] [facility] 7t [place] [address] Care Team Providers Care Bookkeeping Machine Mechanic Name Role Phone Love Garcia MD Primary Care Provider [phone] Encounter Details Date Type Department Care Team ([facility] st Contact Info) Description 11/26/2024 Orders Only [facility] MEDICINE [address] [place], [place] [phone] Love Garcia MD [address] [place], [place] [phone] Social History Tobacco Use Types Packs/Day Years Used Date Smoking Tobacco: Every Day Cigarettes Smokeless Tobacco: Never Comments:1 or 2 cigarettes a day Alcohol Use Standard Drinks/Week Comments Never 0 (1 standard drink = 0.6 oz pur e alcohol) Alcohol Answer Date Recorded How often do you have a drink containing alcohol ? 0 11/26/2024 How many drinks containing a lcohol do you have on a typical day when you are drinking? 0 11/26/2024 How often do you have six or more drinks on one occasion? 0 11/26/2024 Depression Answer Date Recorded Patient Health Questionnaire-9 [...] things needed for daily living? No 11/12/2023 Intimate Partner Violence Answer Date R ecorded Within the last year, have y ou been afraid of your partner or ex-partner? 1 11/26/2024 Within the last year, have y ou been humiliated or emotionally abused in other ways by your partner or ex-partner? 1 Within the last year, have y ou been kicked, hit, slapped, or otherwise physically hurt by your partner or ex-partner? 2 11/26/2024 Within the last year, have y ou been raped or forced to have any kind of sexual activity by your partner or ex-partner? 2 11/26/2024 Utilities Answer Date Recorded In the past 12 months, has t he [employer], gas, oil or water company threatened to [...] documented as of this encounter Care Teams Bookkeeping Machine Mechanic Relationship Specialty Start Date End Date Love Garcia MD [address] [place] [address] PCP - General Family Medicine 09/14/20 documented as of this encounter
--- OUTSIDE RECORDS SUMMARY | 2024-11-28 16:23 | XMS_ITS | Encounter Summary ---
Author Organization [employer] Address [address] [facility] 7t [place] [address] Care Team Providers Care Powder And Primer Canning Leader Name Role Phone Love Garcia MD Primary Care Provider [phone] Encounter Details Date Type Department Care Team (Late st Contact Info) Description 01/31/2024 Abstract [facility] MEDICINE [address] [place], [place] [phone] Love Garcia MD 230 [place], [place] [phone] Social History Tobacco Use Types Packs/Day Years [...] documented as of this encounter Care Teams Powder And Primer Canning Leader Relationship Specialty Start Date End Date Love Garcia MD [address] [place] [address] PCP - General Family Medicine 09/14/20 documented as of this encounter
--- OUTSIDE RECORDS SUMMARY | 2024-11-28 16:23 | XMS_ITS | Encounter Summary ---
Author Organization [employer] Address [address] [facility] 7t [place] [address] Care Team Providers Care Security Systems Specialist Name Role Phone Love Garcia MD Primary [...] documented as of this encounter Care Teams Security Systems Specialist Relationship Specialty Start Date End Date Love Garcia MD [address] [place] [address] PCP - General Family Medicine 09/14/20 documented as of this encounter
--- OUTSIDE RECORDS SUMMARY | 2024-11-28 16:23 | XMS_ITS | Encounter Summary ---
Author Organization [employer] Address [address] [place] [address] 7 [place] [address] Care Team Providers Care Consultant Name Role Phone Love Garcia MD Primary Care Provider [phone] Reason for Visit * Reason Comments Med Refill Encounter Details Date Type Department Care Team ([facility] st Contact Info) Description 03/10/2023 Refill [facility] MEDICINE [address] [place] [address] [phone] Love Garcia MD 230 [place], [place] [phone] Social History Tobacco Use Types Packs/Day Years [...] documented as of this encounter Care Teams Consultant Relationship Specialty Start Date End Date Love Garcia MD [address] [place] [address] PCP - General Family Medicine 09/14/20 documented as of this encounter
--- OUTSIDE RECORDS SUMMARY | 2024-11-28 16:23 | XMS_ITS | Encounter Summary ---
Author Organization [employer] Address [address] [facility] [address] 7[address] [place] [address] Care Team Providers Care Measurer Name Role Phone Love Garcia MD Primary Care Provider [phone] Encounter Details Date Type Department Care Team ([facility] st Contact Info) Description 11/25/2024 Telephone [facility] [address] [place], [place] [phone] Russell, Tammy, OD [address] [place] [address] Social History Tobacco Use Types Packs/Day Years [...] the past 12 months, has t he [employer], [employer], oil or water [employer] threatened to shut off services in your [...] encounter Miscellaneous Notes * Telephone Encounter - Kaykay Monterrosoez - 11/25/2024 12:35 PM EDT 11-25-24 10:11 LVM to pt. Waiting on pt to call to book Stat ref or recall. Octavio FERNANDO 01-26-2023 recall 01-27-2024 recall was sent on due time. 11-25-24 11:55 Pt called and Mireya offer pt appt for 12-01-24 at 1:30pm due to a cancellation. Pt stated she won't be in town. Mireya offer next available appt in february. ptstated she will look to be seen somewhere else jovi appt is so far. documented in this encounter Plan of Treatment Not on file documented as of this encounter Visit Diagnoses Not on filedocumented in this encounter Additional Health Concerns Assessment Noted Time PHQ-9 Depression Total Score: 16 024 3:45 PM EDT documented as of this encounter Care Teams Measurer Relationship Specialty Start Date End Date Love Garcia MD [address] [place] [address] PCP - General Family Medicine 09/14/20 documented as of this encounter
--- OUTSIDE RECORDS SUMMARY | 2024-11-28 16:23 | XMS_ITS | Encounter Summary ---
Author Organization [employer] Address [address] [place] [address] 7 [place] [address] Care Team Providers Care Wildlife Biology Internship Name Role Phone Love Garcia MD Primary Care Provider Reason for Visit * Reason Onset Date Comments Results 11/26/2024 Encounter Details Date Type Department Care Team ([facility] Contact Info) Description 11/26/2024 Telephone [facility] MEDICINE 230 [place], [place] [phone] Margareth Chatman RN [address] [place] [address] Results Social History Tobacco Use Types Packs/Day [...] the past 12 months, has t he [employer], gas, oil or water [employer] threatened to shut off services in your [...] encounter Miscellaneous Notes * Telephone Encounter - Margareth Chatman RN - 11/27/2024 11:40 AM EDT TC placed to pt., informed pt. PCP responded to note in regards to swollen lymph node and would like pt. To take another course of abx, one tab once a day for 6 days. Advised pt. To call by end of course of treatment if no reduction in size of lymph node so that pt. Can referred to [facility] for biopsy and pt. Verbalizes understanding. Otherwise, pt. Reports she attempted to brain picker Jardiance and there was a 400 dollar copay. TC placed to [facility] pharmacy and they applied special pricing that brought rapp down to 13 dollars for 3 month supply, pt. Agrees to this and will brain picker with abx * Telephone Encounter - Margareth Chatman RN - 11/26/2024 2:37 PM EDT TC placed to pt. Informed pt. PCP has sent rx for increased dose to 40mg of cholesterol medication Atorvastatin, to take one tablet once/ day due to labwork from 11/24/24 showing a continued high LDL level. Also informed pt. There was protein in urine which is indicative of kidney damage from DM, therefore PCP has sent rx for pt. To take a new DM medication called Jardiance, to take one tab once daily. Pt. Agrees to plan. Pt. Will expect call or letter in regards to scheduling details with [facility] cardiology. Otherwise, informed pt. Inflammation markers and some white blood cells were elevated indicative of an infection, however pt. Reports the last rx she had for abx was in September for 5 days, and she feels like the lymph node has slightly grown in size. Advised pt. This information would be sent to PCP and pt. Would receive a call back if there is to be any change to plan of care documented in this encounter Plan of Treatment Not on file documented as of this encounter Visit Diagnoses Not on filedocumented in this encounter Additional Health Concerns Assessment Noted Time PHQ-9 Depression Total Score: 16 024 3:45 PM EDT documented as of this encounter Care Teams Wildlife Biology Internship Relationship Specialty Start Date End Date Love Garcia MD [address] [place] [address] PCP - General Family Medicine 09/14/20 documented as of this encounter
--- OUTSIDE RECORDS SUMMARY | 2024-11-28 16:23 | XMS_ITS | Encounter Summary ---
Author Organization [employer] Address [address] [facility] 7t [place] [address] Care Team Providers Care Calibration Engineer Name Role Phone Love Garcia MD Primary Care Provider [phone] Encounter Details Date Type Department Care Team ([facility] st Contact Info) Description 06/05/2024 Orders Only [facility] MEDICINE 230 [place], [place] [phone] Love Garcia MD 230 [place], [place] [phone] Social History Tobacco Use Types Packs/Day Years [...] documented as of this encounter Care Teams Calibration Engineer Relationship Specialty Start Date End Date Love Garcia MD [address] [place] [address] PCP - General Family Medicine 09/14/20 documented as of this encounter
--- OUTSIDE RECORDS SUMMARY | 2024-11-28 16:23 | XMS_ITS | Encounter Summary ---
Author Organization [employer] Address [address] [place] [address] 7t [place] [address] Care Team Providers Care Bending Frame Operator Name Role Phone Love Garcia MD Primary Care Provider Reason for Visit * Reason Onset Date Comments Reschedule 01/14/2024 Encounter Details Date Type Department Care Team ([facility] st Contact Info) Description 01/14/2024 Telephone [facility] MEDICINE 230 [place], [place] [phone] Love Garcia MD [address] [place], [place] [phone] Reschedule Social History Tobacco Use Types Packs/Day [...] requesting to reschedule 01/13 follow up appointment. Brick Mason attempted tos schedule but no availability. Please contact pt at [phone] documented in this encounter Plan of Treatment Not on file documented as of this encounter Visit Diagnoses Not on filedocumented in this encounter Additional Health Concerns Assessment Noted Time PHQ-9 Depression Total Score: 16 024 3:45 PM EDT documented as of this encounter Care Teams Bending Frame Operator Relationship Specialty Start Date End Date Love Garcia MD [address] [place] [address] PCP - General Family Medicine 09/14/20 documented as of this encounter
--- OUTSIDE RECORDS SUMMARY | 2024-11-28 16:23 | XMS_ITS | Encounter Summary ---
Author Organization [employer] Address [address] [facility] 7t [place] [address] Care Team Providers Care Global Marketing Intern Name Role Phone Love Garcia MD Primary Care Provider [phone] Encounter Details Date Type Department Care Team (Late st Contact Info) Description 11/14/2023 Orders Only [facility] MEDICINE [address] [place], [place] [phone] Love Garcia MD [address] [place], [place] [phone] Chronic pruritus (Primary Dx) Social History Tobacco [...] 1.210.Chronic Kidney Disease: Estimated GFR < 60 mL/min/1.63b6Jqtdzc Kidney Disease: Estimated GFR < 15 mL/min/1.73m2 [...] Final [facility] [address] [place] [phone] [phone] documented in this encounter Visit Diagnoses Diagnosis Chronic pruritus- Primary documented in this encounter Additional Health Concerns Assessment Noted Time PHQ-9 Depression Total Score: 16 024 3:45 PM EDT documented as of this encounter Care Teams Global Marketing Intern Relationship Specialty Start Date End Date Love Garcia MD [address] [place] [address] PCP - General Family Medicine 09/14/20 documented as of this encounter
--- OUTSIDE RECORDS SUMMARY | 2024-11-28 16:23 | XMS_ITS | Encounter Summary ---
Author Organization [employer] Address [address] [place] [address] 7t [place] [address] Care Team Providers Care Kettle Operator Name Role Phone Love Garcia MD Primary Care Provider [phone] Reason for Visit * Reason Onset Date Comments Med Refill 08/08/2023 Encounter Details Date Type Department Care Team ([facility] st Contact Info) Description 08/08/2023 Telephone [facility] MEDICINE [address] [place], [place] [phone] Love Garcia MD [address] [place], [place] [phone] Med Refill Social History Tobacco Use Types [...] documented as of this encounter Care Teams Kettle Operator Relationship Specialty Start Date End Date Love Garcia MD [address] [place] [address] PCP - General Family Medicine 09/14/20 documented as of this encounter
--- OUTSIDE RECORDS SUMMARY | 2024-11-28 16:23 | XMS_ITS | Encounter Summary ---
Author Organization [employer] Address [address] [place] [address] Care Team Providers Care Beef Specialist Name Role Phone Love Garcia MD Primary Care Provider [phone] Reason for Referral * Consultation (Routine) - Authorized Specialty Diagnoses / Procedures Referred By Juanis mariscal Referred To Contact Cardiology Diagnoses Chest pain, unspecified type Love Garcia MD [address] [place] [address] Phone: tel: fax: [facility] Cardiology [address] 2nd [address] [place], [place] Phone: tel: fax: Referral ID Status Reason Start Date Expiration Date Visits Requested Visits Authorized [id number] Authorized Specialty Services Required 11/26/2024 11/26/2025 1 1 * Consultation (STAT) - Authorized Specialty Diagnoses / Procedures Referred By Juanis mariscal Referred To Contact Optometry Diagnoses Type 2 diabetes mellitus with hyperglycemia, with long-term current use of insulin ([facility]) Love Garcia MD [address] [place] [address] Phone: tel: fax: Referral ID Status Reason Start Date Expiration Date Visits Requested Visits Authorized [id number] Authorized Specialty Services Required 11/24/2024 11/24/2025 1 1 Reason for Visit * Reason Comments Diabetes Encounter Details Date Type Department Care Team (Late st Contact Info) Description 11/24/2024 3:30 PM EDT Office Visit [facility] [address] [place] [address] Love Garcia MD [address] [place] [address] Type 2 diabetes mellitus with hyperglycemia, with long-term current use of insulin (CMS/HCC) (Primary Dx); Chronic pain of both shoulders; Gastroesophageal reflux disease without esophagitis; Chest pain, unspecified type; Current moderate episode of major depressive disorder without prior episode (CMS/HCC); Screening examination for STI; Essential hypertension; Class 1 obesity with serious comorbidity and body mass index (BMI) of 32.0 to 32.9 in adult, unspecified obesity type; Dietary counseling; Exercise counseling; Chronic painful diabetic neuropathy (CMS/HCC) Social History Tobacco Use Types Packs/Day Years [...] your housing situation today? I have everett sing 11/12/[address] you li [...] enough money to get more: Never True 03/ Transportation Answer Date Recorded In the past [...] 3:50 PM EDT documented in this encounter Progress Notes * Love Garcia MD - 11/24/2024 3:30 PM EDT Images from the original note were not included. SUBJECTIVE: Tamika Mclean is a 64 y.o. year old female who presents for chronic disease management. Denies recent illness, ER visit, or hospitalization. Acute Concerns: Intermittent sharp burning chest pain with strong family history of cardiac disease. She is under stress with her family. [place] [facility] [place]. Her blood pressure is not controlled here. 2. Tender swelling below her R jaw, ESR 44 and CRP 1.4 Interim Updates and Plans: Gallstones 10/27/23 admitted to [facility] [place] cholelithiasis with dilated bile duct Did not go to followup appointment for surgery because her insurance charged her for part of the hospitalization and she does not think she can afford a surgery Occasional RUQ pain post prandially Hypertension taking Metoprolol, Lisinopril 40mg, hydrochlorothiazide 25mg not monitoring at home Normal stress test 02/2020 [facility] BP uncontrolled here DM2 has been taking Metformin, Glipizide, Lantus, would like another GLP1 but cannot afford the copay A1C 10.7 (10/2024) --> 9.4--> 9.1-->10.2-->11.2 (2022) --> 15 at 11/08/21 visit issues with getting medications, using mail order pharmacy HLD taking Atorvastatin 20mg Varicose veins 03/06/[address] Jack Jon, bilateral lower venous reflux Depression, severe motivated by her two grandchildren, feeling better then previously and better without drinking Severe due to family stressors and alcoholism Previous experience with therapist and psychiatrist was not fruitful Alcohol use Disorder quit drinking 4 year ago, has not seen GI for this, no UTD labs or HCC screening Health maintenance: Imms- due for PCV, RSV, zoster Pap- cannot recall last pap Mammo- 01/2022 Birads 1 Colon- last 07/2017, with tubular adenoma, overdue for repeat FH: father lung cancer mother CHF and lymphoma Patient Active Problem List Diagnosis Arthritis of hand Gastroesophageal reflux disease Bilateral cataracts Breast lump Chest pain Chronic painful diabetic neuropathy (CMS/HCC) Constipation Current moderate episode of major depressive disorder without prior episode (CMS/HCC) Dyslipidemia Essential hypertension Impingement syndrome of shoulder region Mild intermittent asthma Obesity Prolonged QT interval Steatosis of liver Type 2 diabetes mellitus (CMS/HCC) Neck mass Muscle pain, myofascial Microcytic anemia Hospital discharge follow-up Hair loss Tubular adenoma of colon Encounter for screening colonoscopy Past Surgical History: Procedure Laterality Date CATARACT EXTRACTION ORIF MANDIBULAR FRACTURE 1994 Family History Problem Relation Name Age of Onset Lymphoma Mother Heart failure Mother Diabetes Mother Lung cancer Father Stroke Sister Diabetes Sister Asthma Sister Social History Social History Narrative Lives with usually, currently with daughter and grandchildren Review of Systems Constitutional: Negative. Respiratory: Negative. Cardiovascular: Negative. Gastrointestinal: Positive for abdominal pain and nausea. Negative for constipation, diarrhea and vomiting. Skin: Negative. Psychiatric/Behavioral: Positive for decreased concentration, dysphoric mood and sleep disturbance.The patient is nervous/anxious. OBJECTIVE: Vitals: 11/24/24 1550 BP: (!) 159/73 BP Location: Right arm Patient Position: Sitting BP Cuff Size: Adult Pulse: 87 Resp: 16 Temp: 97.3 ??F (36.3 ??C) TempSrc: Temporal SpO2: 99% Weight: 178 lb (80.7 kg) Height: 5' 2 (1.575 m) Physical Exam Vitals and nursing note reviewed. Constitutional: Appearance: Normal appearance. HENT: Head: Normocephalic and atraumatic. Neck: Comments: R sided cervical versus submandibular LAD Cardiovascular: Rate and Rhythm: Normal rate and regular rhythm. Pulses: Normal pulses. Heart sounds: Normal heart sounds. Pulmonary: Effort: Pulmonary effort is normal. Breath sounds: Normal breath sounds. Lymphadenopathy: Cervical: Cervical adenopathy present. Skin: General: Skin is warm and dry. Neurological: General: No focal deficit present. Mental Status: She is alert and oriented to person, place, and time. Psychiatric: Mood and Affect: Mood normal. Behavior: Behavior normal. Lab Results Since Your Last Visit as of 11/24/2024, sorted by update time Updated Procedure 11/25/24 1040 HIV-1/2 Antigen and Antibodies, Fourth Generation, with Reflexes Collected: 11/24/24 1624 Final result Specimen: Blood, Venous HIV AB/AG Nonreactive 11/25/24 1040 Hepatitis C Antibody with Reflex to HCV, RNA, Quantitative, Real- Time PCR Collected: 11/24/24 1624 Final result Specimen: Blood, Venous Hepatitis C Antibody Nonreactive 11/24/24 1910 Sed Rate by Modified Westergren Collected: 11/24/241623 Final result Specimen: Blood, Venous Erythrocyte Sedimentation Rate 44 High MM/HR 11/24/241901 Lipid Panel, Standard Collected: 11/24/241623 Final result Specimen: Blood, Venous Triglycerides 151 High mg/dL LDL Cholesterol Calculated 101 High mg/dL Cholesterol 164 mg/dL HDL Cholesterol 33 Low mg/dL 11/24/241901 C-reactive Protein Collected: 11/24/241623 Final result Specimen: Blood, Venous C Reactive Protein 1.34 High mg/dL 11/24/241901 TSH W/Reflex to FT4 Collected: 11/24/241623 Final result Specimen: Blood, Venous TSH reflex Free T4 0.76 uIU/mL 11/24/241837 Albumin, Random Urine W/Creatinine Collected: 11/24/241623 Final result Specimen: Urine, Random Creatinine, Urine 95.66 mg/dL Microalbum Creatinine Ratio Ur 47.0 High ug/mg cr Microalbumin Urine 45.0 mg/L 11/24/241816 CBC auto differential Collected: 11/24/241623 Final result Specimen: Blood, Venous White Blood Count 6.4 X10*3/uL Lymphocytes Percent Auto 16.1 Low % Red Blood Count 4.02 Low X10*6/uL Monocytes Percent Auto 8.7 % Hemoglobin 10.5 Low g/dl Eosinophils Percent Auto 2.5 % Hematocrit 33.4 Low % Basophils Percent Auto 0.5 % Mean Corpuscular Volume 83.1 fL NRBC Pct Auto 0.0 /100WBC Mean Corpuscular Hemoglobin 26.1 Low pg Neutrophils Absolute Auto 4.6 x10*3/uL Mean Corpuscular HGB Conc 31.4 g/dl Imm Gran Abs Auto 0.04 High X10*3/uL Red Cell Distribution Width 14.0 % Lymphocytes Absolute Auto 1.0 Low X10*3/uL Platelet Count 186 X10*3/uL Monocytes Absolute Auto 0.6 X10*3/uL Mean Platelet Volume 12.3 fL Eosinophils Absolute Auto 0.2 X10*3/uL Neutrophils Percent Auto 71.6 % Basophils Absolute Auto 0.0 X10*3/uL Imm Gran Pct Auto 0.6 High % NRBC Abs Auto 0.000 X10*3/uL ASSESSMENT/PLAN Problem List Items Addressed This Visit Gastroesophageal reflux disease Chest pain Relevant Orders Referral to Cardiology Chronic painful diabetic neuropathy ([facility]) Current moderate episode of major depressive disorder without prior episode ([facility]) Relevant Medications sertraline (Zoloft) 50 MG tablet Essential hypertension Relevant Medications hydroCHLOROthiazide (HYDRODiuril) 25 MG tablet Obesity Relevant Orders TSH W/Reflex to FT4 (Completed) Type 2 diabetes mellitus ([facility]) - Primary Current Assessment & Plan A1C 10.7 continue Metformin, Glipizide, and Lantus 28units nightly Add SGLT2 for renal protection Will try to see if she qualifies for as secondary insurance and then they would pay for copay ofGLP1 and would start Mounjaro Monofilament- overdue Dental- UTD Eye exam- overdue to inform me if money or insurance issues make it difficult to obtain medications Imms- declines Relevant Medications insulin glargine (Lantus SoloStar) 100 UNIT/ML pen Other Relevant Orders POCT HGB A1C (Completed) POCT Glucose (Completed) Lipid Panel, Standard (Completed) Albumin, Random Urine W/Creatinine (Completed) HIV-1/2 Antigen and Antibodies, Fourth Generation, with Reflexes (Completed) Hepatitis C Antibody with Reflex to HCV, RNA, Quantitative, Real-Time PCR (Completed) Referral to Optometry, Internal Sed Rate by Modified Westergren (Completed) C-reactive Protein (Completed) CBC auto differential (Completed) Other Visit Diagnoses Chronic pain of both shoulders Relevant Orders XR Shoulder 2+ Views Right XR Shoulder 2+ Views Left Screening examination for STI Dietary counseling Exercise counseling Follow Up: 4 months or sooner prn Allergies Allergen Reactions Penicillin G Current Outpatient Medications: albuterol (2.5 MG/3ML) 0.083% nebulizer solution, Take 3 mL (2.5 mg) by nebulization every 6 (six) hours if needed for wheezing., Disp: 75 mL, Rfl: 11 albuterol 108 (90 Base) MCG/ACT inhaler, INHALE 2 PUFFS BY MOUTH EVERY 6 HOURS IF NEEDED FOR WHEEZING, Disp: 8.5 g, Rfl: 11 Alcohol Swabs 70 % pads, Use to test blood sugar three times daily, Disp: 100 each, Rfl: 11 ascorbic acid (Vitamin C) 500 MG tablet, take 1 tablet daily with iron, Disp: , Rfl: aspirin 81 MG chewable tablet, Chew 1 tablet (81 mg) Once per day., Disp: 90 tablet, Rfl: 3 atorvastatin (Lipitor) 40 MG tablet, Take 1 tablet (40 mg) by mouth Once per day., Disp: 90 tablet,Rfl: 3 Blood Glucose Monitoring Suppl (FreeStyle [place] Lite) w/Device kit, Use to test blood sugar threetimes daily, Disp: 1 kit, Rfl: 0 cetirizine (ZyrTEC) 10 MG tablet, take 1 tablet by oral route every day, Disp: , Rfl: cyclobenzaprine (Flexeril) 5 MG tablet, TAKE 1 TABLET BY MOUTH THREE TIMES DAILY FOR 10 DAYS, Disp:, Rfl: Diclofenac Sodium 1 % gel, apply 2 gram by topical route 4 times every day to the affected area(s),Disp: , Rfl: empagliflozin (Jardiance) 10 MG, Take 1 tablet (10 mg) by mouth Once per day., Disp: 90 tablet, Rfl: 3 ferrous sulfate 325 (65 Fe) MG tablet, Take 1 tablet (325 mg) by mouth every other day., Disp: 45 tablet, Rfl: 3 fluticasone furoate (Arnuity Ellipta) 100 MCG/ACT inhaler, Inhale 1 puff Once per day. Rinse mouth with water after use to reduce aftertaste and incidence of candidiasis. Do not swallow., Disp: 1 each, Rfl: 11 FREESTYLE LITE test strip, Use to test blood sugar three times daily, Disp: 100 each, Rfl: 12 gabapentin (Neurontin) 300 MG capsule, TAKE 1 CAPSULE BY MOUTH 3 TIMES DAILY, Disp: 300 capsule, Rfl: 3 glipiZIDE (Glucotrol) 10 MG tablet, TAKE 1 TABLET BY MOUTH TWICE DAILY BEFORE MEALS, Disp: 200 tablet, Rfl: 3 glucose blood (FREESTYLE LITE) test strip, USE 1 Each by DIRECTED route 3 times every day, Disp:, Rfl: hydroCHLOROthiazide (HYDRODiuril) 25 MG tablet, Take 1 tablet (25 mg) by mouth Once per day., Disp:90 tablet, Rfl: 3 insulin glargine (Lantus SoloStar) 100 UNIT/ML pen, Inject 42 Units under the skin at bedtime., Disp: 15 mL, Rfl: 11 Lancets misc, Use to test blood sugar three times daily, Disp: 100 each, Rfl: 11 lisinopril 40 MG tablet, TAKE 1 TABLET BY MOUTH DAILY, Disp: 100 tablet, Rfl: 3 metFORMIN (Glucophage) 1000 MG tablet, TAKE 1 TABLET BY MOUTH TWICE DAILY WITH MORNING AND EVENING MEALS, Disp: 200 tablet, Rfl: 3 metoprolol tartrate (Lopressor) 25 MG tablet, Take 1 tablet (25 mg) by mouth 2 times daily. TAKE 1 TABLET BY MOUTH TWICE DAILY WITH 50MG TABLET FOR A TOTAL DOSE OF 75MG TWICE DAILY, Disp: 180 tablet,Rfl: 3 metoprolol tartrate (Lopressor) 50 MG tablet, TAKE 1 TABLET BY MOUTH TWICE DAILY WITH 25 MG TABLET WITH MEALS, Disp: 200 tablet, Rfl: 2 Multiple Vitamin (Multi-Vitamin) tablet, take 1 tablet by oral route every day with food, Disp: , Rfl: omeprazole (PriLOSEC) [address] capsule, TAKE 1 CAPSULE BY MOUTH DAILY BEFORE A MEAL, Disp: 100 capsule, Rfl: 3 pen needle 32G x 4 mm misc, Inject under the skin if needed. Use qhs, Disp: , Rfl: pramoxine-calamine (Calahist) 1-8 % lotion, apply at bedtime, Disp: , Rfl: sertraline (Zoloft) 50 MG tablet, Take 1 tablet (50 mg) by mouth Once per day., Disp: 90 tablet, Rfl: 3 Super Thin Lancets misc, Use 1 lancet by to skin route 3 times every day, Disp: , Rfl: Sure Comfort Pen [place] 31G X 5 MM misc, USE DIRECTED AT BEDTIME, Disp: 100 each, Rfl: 11 Tirzepatide (Mounjaro) 2.5 MG/0.5ML solution auto-injector, Inject 2.5 mg under the skin 1 (one) time per week., Disp: 2 mL, Rfl: 2 traZODone (Desyrel) 50 MG tablet, TAKE 1 TABLET BY MOUTH EVERY DAY AT BEDTIME, Disp: 90 tablet, Rfl: 3 [place] [employer] Translation: Patient is bilingual and declines translation services documented in this encounter Miscellaneous Notes * Assessment & Plan Note - Love Garcia MD - 11/26/2024 10:56 AM EDT Associated Problem(s): Type 2 diabetes mellitus (CMS/HCC) A1C 10.7 continue Metformin, Glipizide, and Lantus 28units nightly Add SGLT2 for renal protection Will try to see if she qualifies for as secondary insurance and then they would pay for copay ofGLP1 and would start Mounjaro Monofilament- overdue Dental- UTD Eye exam- overdue to inform me if money or insurance issues make it difficult to obtain medications Imms- declines documented in this encounter Plan of Treatment Scheduled Referrals Name Type Priority Associated Diagnoses Orde r Schedule Referral to Optometry, Internal Outpatient Referral STAT Type 2 diabetes mellitus with hyperglycemia, with long-term current use of insulin (CMS/HCC) Expected: 11/24/2024 (Approximate), Expires: 11/24/2025 Referral to Cardiology Outpatient Referral Routine Chest pain, unspecified type Expected: 11/26/2024 (Approximate), Expires: 11/26/2025 documented as of this encounter Procedures Procedure Name Priority Date/Time Associated Diagnosis Comments XR SHOULDER 2+ VIEWS RIGHT Routine 11/28/2024 2:55 PM EDT Chronic pain of both shoulders XR SHOULDER 2+ VIEWS LEFT Routine 11/28/2024 2:55 PM EDT Chronic pain of both shoulders TSH W/REFLEX TO FT4 Routine 11/24/2024 4 :24 PM EDT Class 1 obesity with serious comorbidity and body mass index (BMI) of 32.0 to 32.9 in adult, unspecified obesity type ALBUMIN, RANDOM URINE W/CREATININE Routine 11/24/2024 4:24 PM EDT Type 2 diabetes mellitus with hyperglycemia, with long-term current use of insulin (CMS/HCC) CBC WITH AUTO DIFFERENTIAL Routine 11/24/2024 4:24 PM EDT Type 2 diabetes mellitus with hyperglycemia, with long-term current use of insulin (CMS/HCC) HEPATITIS C AB W/REFL TO HCV RNA, QN, PCR Routine 11/24/2024 4:24 PM EDT Screening examination for STI HIV 1/2 ANTIGEN/ANTIBODY, FOURTH GENERATION W/RFL Routine 11/24/2024 4:24 PM EDT Screening examination for STI SED RATE BY MODIFIED WESTERGREN Routine 11/24/2024 4:24 PM EDT Type 2 diabetes mellitus with hyperglycemia, with long-term current use of insulin (CMS/HCC) C-REACTIVE PROTEIN Routine 11/24/2024 4: 24 PM EDT Type 2 diabetes mellitus with hyperglycemia, with long-term current use of insulin (CMS/HCC) LIPID PANEL, STANDARD Routine 11/24/2024 4:24 PM EDT Type 2 diabetes mellitus with hyperglycemia, with long-term current use of insulin (CMS/HCC) POCT GLUCOSE Routine 11/24/2024 3:52 PM EDT Type 2 diabetes mellitus with hyperglycemia, with long-term current use of insulin (CMS/HCC) POCT GLYCATED HEMOGLOBIN, TOTAL Routine 11/24/2024 3:51 PM EDT Type 2 diabetes mellitus with hyperglycemia, with long-term current use of insulin (CMS/HCC) documented in this encounter Results * XR Shoulder 2+ Views Left (11/28/2024 2:55 PM EDT) Anatomical Region Laterality Modality Upper Extremities, Shoulder Left Radi ographic Imaging 11/28/2024 2:55 PM EDT Narrative 11/28/2024 4:00 PM EDT ?[facility] ?[address] ?[place] [address] ?XRay Report ? Signed ? Patient: Mclean,Ada ?MR#: [id number] ? : 1960 ?Acct:[id number] ? Age/Sex: 64 / F ?ADM Date: 04/04/25 ? Loc: HO.HHCX ? Attending Dr: Love Garcia MD ? Ordering Physician: Love Garcia ?? Date of Service: 11/28/24 ?? Procedure(s): XR shoulder LT min 2V ?? Accession Number(s): [id number] ? cc: Love Garcia ? EXAMINATION: ?? XR SHOULDER, LEFT ? CLINICAL INFORMATION: ?? pain with overhead motion ? COMPARISON: ?? June 09, 2019. ? TECHNIQUE: ?? AP external rotation, Grashey, scapular Y, and axillary views of the ?? left shoulder. ? FINDINGS: ?? There is a 1 cm superior displaced clavicle with respect to the ?? acromion. Focal calcifications in the supraspinatus tendon insertion, ?? greater tuberosity. ?? Exostosis in the inferior aspect midportion of the clavicle. ?? No acute cortical disruption. ?? Glenohumeral joint is well seated in the joint spaces. ? XR/XR shoulder LT min 2V ?? IMPRESSION: ?? 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 ?? Tendinosis versus tendinopathy, supraspinatus. ? Electronically signed by: ??Sarmad Peterson MD ??11/28/2024 03:58 PM ?? EDT ? Dictated By: ?Sarmad Ellis MD ? Signed By: ?<Electronically signed by Sarmad Stanford MD in OV> ? 11/28/24 1558 ? DD/ 1455 ? TD/TT: 11/28/24 1500 ? Obstetric Anaesthetist: ? Procedure Note Manuel, Image - 11/28/[address] [address] XRay Report Signed Patient: Kelle Mclean#: [id number] : 1960Acct:[id number] Age/Sex: 64 / FADM Date: 11/28/24 Loc: HO.HHCX Attending Dr: Love Garcia MD Ordering Physician: Love Garcia Date of Service: 11/28/24 Procedure(s): XR shoulder LT min 2V Accession Number(s): [id number] cc: Love Garcia EXAMINATION: XR SHOULDER, LEFT CLINICAL INFORMATION: pain with overhead motion COMPARISON: June 09, 2019. TECHNIQUE: AP external rotation, Grashey, scapular Y, and axillary views of the left shoulder. FINDINGS: There is a 1 cm superior displaced clavicle with respect to the acromion. Focal calcifications in the supraspinatus tendon insertion, greater tuberosity. Exostosis in the inferior aspect midportion of the clavicle. No acute cortical disruption. Glenohumeral joint is well seated in the joint spaces. 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 Tendinosis versus tendinopathy, supraspinatus. Electronically signed by: Sarmad Peterson MD 11/28/2024 03:58 PM EDT RP Dictated By: Sarmad Ellis MD Signed By: <Electronically signed by Sarmad Stanford MDin OV> 11/28/24 1558 DD/ 1455 TD/TT: 11/28/24 1500 Obstetric Anaesthetist: us Love Garcia MD IMG XR PROCEDURES Final Result * XR Shoulder 2+ Views Right (11/28/2024 2:55 PM EDT) Anatomical Region Laterality Modality Upper Extremities, Shoulder Right Radi ographic Imaging 11/28/2024 2:55 PM EDT Narrative 11/28/2024 3:58 PM EDT ?[facility] ?[address] ?[place] [address] ?XRay Report ? Signed ? Patient: Mclean,Ada ?MR#: [id number] ? : 1960 ?Acct:[id number] ? Age/Sex: 64 / F ?ADM Date: 04/04/25 ? Loc: HO.HHCX ? Attending Dr: Love Garcia MD ? Ordering Physician: Love Garcia ?? Date of Service: 11/28/24 ?? Procedure(s): XR shoulder RT min 2V ?? Accession Number(s): [id number] ? cc: Love Garcia ? EXAMINATION: ?? XR SHOULDER, RIGHT ? CLINICAL INFORMATION: ?? pain with overhead motion ? COMPARISON: ?? June 09, 2019. ? TECHNIQUE: ?? AP external rotation, Grashey, scapular Y, and axillary views of the ?? right shoulder. ? FINDINGS: ?? Sclerosis of the articular surface of the acromioclavicular joint with ?? the subchondral cyst formation. ?? No acute cortical disruption or malalignment. ? XR/XR shoulder RT min 2V ?? IMPRESSION: ?? Degenerative changes, acromioclavicular joint. ? Electronically signed by: ??Sarmad Peterson MD ??11/28/2024 03:56 PM ?? EDT RP ? Dictated By: ?Sarmad Ellis MD ? Signed By: ?<Electronically signed by Sarmad Stanford MD in OV> ? 11/28/24 1556 ? DD/ 1455 ? TD/TT: 11/28/24 1500 ? Obstetric Anaesthetist: ? Procedure Note Penny Jackson - 11/28/2024 [place] [address] XRay Report Signed Patient: Kelle Mclean#: [id number] : 1960Acct:[id number] Age/Sex: 64 / FADM Date: 11/28/24 Loc: HO.HHCX Attending Dr: Love Garcia MD Ordering Physician: Love Garcia Date of Service: 11/28/24 Procedure(s): XR shoulder RT min 2V Accession Number(s): [id number] cc: Love Garcia EXAMINATION: XR SHOULDER, RIGHT CLINICAL INFORMATION: pain with overhead motion COMPARISON: June 09, 2019. TECHNIQUE: AP external rotation, Grashey, scapular Y, and axillary views of the right shoulder. FINDINGS: Sclerosis of the articular surface of the acromioclavicular joint with the subchondral cyst formation. No acute cortical disruption or malalignment. XR/XR shoulder RT min 2V IMPRESSION: Degenerative changes, acromioclavicular joint. Electronically signed by: Sarmad Peterson MD 11/28/2024 03:56 PM EDT RP Dictated By: Sarmad Ellis MD Signed By: <Electronically signed by Sarmad Stanford MDin OV> 11/28/24 1556 DD/ 1455 TD/TT: 11/28/24 1500 Obstetric Anaesthetist: Love Garcia MD IMG XR PROCEDURES Final Result * (ABNORMAL) CBC auto differential (11/24/2024 4:24 PM EDT) White Blood Count 6.4 4.8 - 10.8 X10*3/uL [facility] Red Blood Count 4.02(L) 4.20 - 5.50 X10*6/uL [facility] Hemoglobin 10.5(L) 12.0 - 16.0 g/dl [facility] Hematocrit 33.4(L) 37.0 - 47.0 % [facility] Mean Corpuscular Volume 83.1 80.0 - 98.0 fL [facility] Mean Corpuscular Hemoglobin 26.1(L) 27.0 - 33.0 pg [facility] Mean Corpuscular HGB Conc 31.4 31.0 - 35.0 g/dl [facility] Red Cell Distribution Width 14.0 11.0 - 16.0 % [facility] Platelet Count 186 160 - 400 X10*3/uL [facility] Mean Platelet Volume 12.3 9.4 - 12.3 fL [facility] Neutrophils Percent Auto 71.6 45 - 73 % [facility] Imm Gran Pct Auto 0.6(H) 0.0 - 0.4 % [facility] Lymphocytes Percent Auto 16.1(L) 20 - 40 % [facility] Monocytes Percent Auto 8.7 2 - 11 % [facility] Eosinophils Percent Auto 2.5 0 - 4 % [facility] Basophils Percent Auto 0.5 0 - 2 % [facility] [facility] NRBC Pct Auto 0.0 0.0 - 0.2 /100WBC [facility] Neutrophils Absolute Auto 4.6 2.0 - 8.3 x10*3/uL [facility] Imm Gran Abs Auto 0.04(H) 0.00 - 0.03 X10*3/uL [facility] Lymphocytes Absolute Auto 1.0(L) 1.2 - 4.9 X10*3/uL [facility] Monocytes Absolute Auto 0.6 0.1 - 1.2 X10*3/uL [facility] Eosinophils Absolute Auto 0.2 0.0 - 0.4 X10*3/uL [facility] Basophils Absolute Auto 0.0 0.0 - 0.2 X10*3/uL [facility] NRBC Abs Auto 0.000 0.0 - 0.012 X10*3/uL [facility] Blood Venous blood specimen / Unknown 11/24/2024 4:24 PM EDT 11/24/2024 5:57 PM EDT Love Garcia MD LAB BLOOD ORDERABLES Final Res ult Performing Organization Address City/[facility]/ZIP Co de Phone Number [facility] [address] [place] [phone] * (ABNORMAL) C-reactive Protein (11/24/2024 4:24 PM EDT) [facility] C Reactive Protein 1.34(H) < or = 0.50 mg/dL [facility] Blood Venous blood specimen / Unknown 11/24/2024 4:24 PM EDT 11/24/2024 5:57 PM EDT Love Garcia MD LAB BLOOD ORDERABLES Final Res ult Performing Organization Address [facility]/ZIP Co de Phone Number [facility] [address] [place] [phone] * (ABNORMAL) Sed Rate by Modified Betyren (11/24/2024 4:24 PM EDT) Pathologist [facility] [place] Erythrocyte Sedimentation Rate 44(H) 0 - 20 MM/HR [facility] Comment:Patients with polycy themia and many hemoglobin abnormalitiesmay have depressed sed rates whereas patients with anemiamay have elevated sed rates. Blood Venous blood specimen / Unknown 11/24/2024 4:24 PM EDT 11/24/2024 5:57 PM EDT Love Garcia MD LAB BLOOD ORDERABLES Final Res ult Performing Organization Address [facility]/ZIP Co de Phone Number [facility] [address] [place] [phone] * TSH W/Reflex to FT4 (11/24/2024 4:24 PM EDT) TSH reflex Free T4 0.76 0.32 - 4.0 uIU/mL [facility] Blood Venous blood specimen / Unknown 11/24/2024 4:24 PM EDT 11/24/2024 5:57 PM EDT Loev Garcia MD LAB BLOOD ORDERABLES Final Res ult Performing Organization Address [facility] Co de Phone Number [facility] [address] [place] [phone] * Hepatitis C Antibody with Reflex to HCV, RNA, Quantitative, Real-Time PCR (11/24/2024 4:24 PM EDT) Hepatitis C Antibody Nonreactive Nonreactive [facility] Comment:Antibodies to HCV no t detected; does not exclude early acuteHCV infection. Blood Venous blood specimen / Unknown 11/24/2024 4:24 PM EDT 11/24/2024 5:57 PM EDT Love Garcia MD LAB BLOOD ORDERABLES Final Res ult Performing Organization Address [facility] Co de Phone Number [facility] [address] [place] [phone] * HIV-1/2 Antigen and Antibodies, Fourth Generation, with Reflexes (11/24/2024 4:24 PM EDT) HIV AB/AG Nonreactive Nonreactive [facility] Comment:HIV-1 p24 Ag and/or HIV-1/HIV-2 Ab not detected.A test result that is nonreactive does not exclude thepossibility of exposure to or infection with HIV-1 and/orHIV-2. Nonreactive results in this assay for individualswith prior exposure to HIV-1 and/or HIV-2 may be due toantigen and antibody levels that are below the limit ofdetection of this assay.The [email or web address] HIV Ag/Ab Combo assay result andsupplemental assay results should be interpreted inconjunction with the patient's clinical presentation,history and other laboratory results. If the results areinconsistent with clinical evidence, additional testing issuggested to confirm the result. Blood Venous blood specimen / Unknown 11/24/2024 4:24 PM EDT 11/24/2024 5:57 PM EDT Love Garcia MD LAB BLOOD ORDERABLES Final Res ult [facility] [address] [place] [phone] * (ABNORMAL) Albumin, Random Urine W/Creatinine (11/24/2024 4:24 PM EDT) Creatinine, Urine 95.66 mg/dL [facility] Microalbumin Urine 45.0 mg/L [facility] Microalbum Creatinine Ratio Ur 47.0(H) <30 ug/mg cr [facility] Comment:Albumin/Creatinine R atio Reference Ranges: Normal: < 30 ug/mg creatinine Microalbuminuria: 30 - 300 ug/mg creatinineClinical Albuminuria: > 300 ug/mg creatinine Urine (Urine, Random) 11/24/2024 4:24 PM EDT 11/24/2024 5:59 PM EDT Love Garcia MD LAB URINE ORDERABLES Final Res ult Performing Organization Address City/[facility]/ZIP Co de Phone Number [facility] [address] [place] [phone] * (ABNORMAL) Lipid Panel, Standard (11/24/2024 4:24 PM EDT) Triglycerides 151(H) <150 mg/dL [facility] Comment:Desirable Triglyceri de: less than 150 mg/dLBorderline High Triglyceride 150-199 mg/dLHigh Triglyceride: 200-499 mg/dLVery High Triglyceride: greater than or equal to 5OO mg/dL Cholesterol 164 <200 mg/dL [facility] Comment:Desirable Cholestero l: less than 200 mg/dLBorderline High Cholesterol: 200-239 mg/dLHigh Cholesterol: greater than 239 mg/dL LDL Cholesterol Calculated 101(H) <100 mg/dL [facility] Comment:Desirable LDL: less than 100 mg/dLNear Optimal/Above Optimal LDL: 110- 129 mg/dLBorderline High LDL: 130-159 mg/dLHigh LDL: 160-189 mg/dLVery High LDL: greater than or equal to 190 mg/dL HDL Cholesterol 33(L) >40 mg/dL [facility] Comment:Desirable HDL: great er than 40 mg/dL Note: This HDL assay may give artificially low results in patients with liver disease. Blood Venous blood specimen / Unknown 11/24/2024 4:24 PM EDT 11/24/2024 5:57 PM EDT Love Garcia MD LAB BLOOD ORDERABLES Final Res ult [facility] [address] [place] [phone] * (ABNORMAL) POCT Glucose (11/24/2024 3:52 PM EDT) Glucose Blood, POC 273(A) 60 - 200 mg/dL Blood Capillary blood specimen / Unknown 11/24/2024 3:52 PM EDT Love Garcia MD POINT OF [...] hyperglycemia, with long-term current use of insulin (CMS/[facility])- Primary Chronic pain of both shoulders Gastroesophageal reflux disease without esophagitis Esophageal reflux Chest pain, unspecified type Current moderate episode of major depressive disorder without prior episode (CMS/HCC) Screening examination for STI Essential hypertension Unspecified essential hypertension Class 1 obesity with serious comorbidity and body mass index (BMI) of 32.0 to 32.9 in adult, unspecified obesity type Dietary counseling Dietary surveillance and counseling Exercise counseling Chronic painful diabetic neuropathy (CMS/HCC) documented in this encounter Additional Health Concerns Assessment Noted Time PHQ-9 Depression Total Score: 16 11/11/2 024 3:45 PM EDT documented as of this encounter Care Teams Beef Specialist Relationship Specialty Start Date End Date Love Garcia MD [address] [place] [phone] PCP - General Family Medicine 09/14/20 documented as of this encounter
--- OUTSIDE RECORDS SUMMARY | 2024-11-28 16:23 | XMS_ITS | Encounter Summary ---
Author Organization [employer] Address [address] [place] [address] [address] [place] [address] Care Team Providers Care Research Program Assistant Name Role Phone Love Garcia MD Primary Care Provider [phone] Encounter Details Date Type Department Care Team (Late st Contact Info) Description 04/27/2023 Abstract [facility] [address] [place], [place] [phone] Carol Donato Social History Tobacco Use Types [...] documented as of this encounter Care Teams Research Program Assistant Relationship Specialty Start Date End Date Love Garcia MD [address] [place] [phone] PCP - General Family Medicine 09/14/20 documented as of this encounter
--- OUTSIDE RECORDS SUMMARY | 2024-11-28 16:23 | XMS_ITS | Encounter Summary ---
Author Organization [employer] Address [address] [facility] [address] [place] [address] Care Team Providers Care Medical Psychotherapist Name Role Phone Love Garcia MD Primary Care Provider [phone] Encounter Details Date Type Department Care Team ([facility] st Contact Info) Description 01/03/2024 Orders Only [facility] [address] [place], [place] [phone] Love Garcia MD [address] [place], [place] [phone] Social History Tobacco Use Types Packs/Day Years [...] documented as of this encounter Care Teams Medical Psychotherapist Relationship Specialty Start Date End Date Love Garcia MD [address] [place] [phone] PCP - General Family Medicine 09/14/20 documented as of this encounter
--- OUTSIDE RECORDS SUMMARY | 2024-11-28 16:23 | XMS_ITS | Encounter Summary ---
Author Organization [employer] Address [address] [place] [address] Care Team Providers Care Architectural Job Captain Name Role Phone Love Garcia MD Primary Care Provider [phone] Encounter Details Date Type Department Care Team ([facility] st Contact Info) Description 11/25/2024 Telephone C [facility] [address] [place], [place] [phone] Russell, Tammy, OD [address] [place] [address] Social History Tobacco Use Types Packs/Day Years [...] the past 12 months, has t he [employer] gas, oil or water company threatened to [...] Miscellaneous Notes * Telephone Encounter - Kaykay Thorne - 11/25/2024 10:12 AM EDT Pt KASSIE 01-26-2023 with Fabiana. Pt due for recall and referral Stat was sent. LVM waiting on pt to call back to book appt. documented in this encounter Plan of Treatment Not on file documented as of this encounter Visit Diagnoses Not on filedocumented in this encounter Additional Health Concerns Assessment Noted Time PHQ-9 Depression Total Score: 16 024 3:45 PM EDT documented as of this encounter Care Teams Architectural Job Captain Relationship Specialty Start Date End Date Love Garcia MD [address] [place] [phone] PCP - General Family Medicine 09/14/20 documented as of this encounter
--- OUTSIDE RECORDS SUMMARY | 2024-11-28 16:23 | XMS_ITS | Encounter Summary ---
Author Organization [employer] Address [address] [place] [address] [address] [place] [address] Care Team Providers Care Database Administration Manager Name Role Phone Love Garcia MD Primary Care Provider [phone] Encounter Details Date Type Department Care Team ([facility] st Contact Info) Description 11/03/2022 Orders Only [facility] [address] [place], [place] [phone] Love Garcia MD [address] [place], [place] [phone] Type 2 diabetes mellitus with hyperglycemia, with long-term current use of insulin ([facility]) (Primary Dx) Social History Tobacco Use Types [...] hyperglycemia, with long-term current use of insulin ([facility])- Primary documented in this encounter Additional Health Concerns Assessment Noted Time PHQ-9 Depression Total Score: 14 023 11:44 AM EST documented as of this encounter Care Teams Database Administration Manager Relationship Specialty Start Date End Date Love Garcia MD [address] [place] [address] PCP - General Family Medicine 09/14/20 documented as of this encounter
--- OUTSIDE RECORDS SUMMARY | 2024-11-28 16:23 | XMS_ITS | Clinical Summary ---
Author Organization [employer] Address [address] [place] [address] [address] [place] [address] Care Team Providers Care Welder Plastic Name Role Phone Love Garcia MD Primary Care Provider [phone] Allergies Active Allergy Reactions Criticality Noted Date [...] Inject under the skin if needed. Use [facility] Active Super Thin Lancets misc Use 1 [...] MOUTH 3 TIMES DAILY 300 capsule 3 Active omeprazole (PriLOSEC) [address] capsule TAKE 1 CAPSULE BY MOUTH DAILY BEFORE A MEAL 100 capsule 3 Active metoprolol tartrate (Lopressor) 25 MG tablet Take 1 tablet (25 mg) by mouth 2 times daily. TAKE 1 TABLET BY MOUTH TWICE DAILY WITH 50MG TABLET FOR A TOTAL DOSE OF 75MG TWICE DAILY 180 tablet 3 Active Sure Comfort Pen [place] 31G X 5 MM misc USE DIRECTED AT BEDTIME 100 each Active Tirzepatide (Mounjaro) 2.5 MG/0.5ML solution auto-injector Inject 2.5 mg under the skin 1 (one) time per week. 2 mL 2 Active FREESTYLE LITE test stripIndication s:Type 2 diabetes mellitus with hyperglycemia, with long-term current use of insulin ([facility]) Use to test blood sugar three times daily 100 each 025 2025 Active Lancets miscIndications :Type 2 diabetes mellitus with hyperglycemia, with long-term current use of insulin ([facility]) Use to test blood sugar three times daily 100 each Active Alcohol Swabs 70 % padsIndications :Type 2 diabetes mellitus with hyperglycemia, with long-term current use of insulin ([facility]) Use to test blood sugar three times daily 100 each Active Blood Glucose Monitoring Suppl (FreeStyle Bolivar Lite) w/Device kit Use to test blood sugar three times daily 1 kit Active albuterol (2.5 MG/3ML) 0.083% nebulizer solutionIndicat ions:Cough, unspecified type,Asthma with acute exacerbation, unspecified asthma severity, unspecified whether persistent,Lung crackles Take 3 mL (2.5 mg) by nebulization every 6 (six) hours if needed for wheezing. 75 mL 11 02/25/2025 Active albuterol 108 (90 Base) MCG/ACT inhalerIndicati [...] 25 MG TABLET WITH MEALS 200 tablet Active insulin glargine (Lantus SoloStar) 100 UNIT/ML penIndications: Type 2 diabetes mellitus with hyperglycemia, with long-term current use of insulin ([facility]) Inject 42 Units under the skin at bedtime. 15 mL Active hydroCHLOROthia zide (HYDRODiuril) 25 MG tabletIndicatio ns:Essential hypertension Take 1 tablet (25 mg) by mouth Once per day. 90 tablet 2025 Active sertraline (Zoloft) 50 MG tabletIndicatio ns:Current moderate episode of major depressive disorder without prior episode ([facility]) Take 1 tablet (50 mg) by mouth Once per day. 90 tablet 2025 Active empagliflozin (Jardiance) 10 MG Take 1 tablet (10 mg) by mouth Once per day. 90 tablet 025 2025 Active aspirin 81 MG chewable tablet Chew 1 tablet (81 mg) Once per day. 90 tablet 025 2025 Active atorvastatin (Lipitor) 40 MG tablet Take 1 tablet (40 mg) by mouth Once per day. 90 tablet 025 2025 Active azithromycin (Zithromax) 250 MG tablet Take 1 tablet (250 mg) by mouth Once per day for 6 days. 6 tablet 025 2024 Active traZODone (Desyrel) 50 MG tabletIndicatio ns:Primary insomnia Take 1 tablet (50 mg) by mouth at bedtime. 90 tablet 3 024 2024 Discontinued atorvastatin (Lipitor) 20 MG tablet Take 1 tablet (20 mg) by mouth Once per day. 90 tablet 3 024 2024 Discontinued(T herapy completed) metoprolol tartrate (Lopressor) 50 MG tabletIndicatio ns:Essential [...] noted Due for labs and HCC screening Impingement syndrome of shoulder region 10/24/19 18 Tubular adenoma of colon 08/17/2017 Assessment & [...] 2 diabetes mellitus 03/07/2017 Assessment & Plan (11/26/2024 10:56 AM EDT): A1C 10.7 continue Metformin, Glipizide, and Lantus [...] obtain medications Imms- declines Assessment & Plan (08/03/2024 5:56 AM EST): [...] Problem Noted Date Diagnosed Date Resolved Date Alcoholic hepatitis 10/24/2017 11/27/19 25 Drug-induced mood disorder 10/12/2017 0 11/26/2024 Alcohol consumption binge drinking 05/02/2017 08/03/2024 Joint derangement 03/07/2017 08/03/2024 Left-sided headache 03/07/2017 08/03/20 Encounters Date Type Department Care Team Description 11/26/2024 Orders Only [facility] [address] [place] [place] [address] Love Garcia MD 11/26/2024 Telephone [facility] [address] [place] [address] Margareth Chatman, RN Results 11/25/2024 Telephone [facility] [address] [place] [address] Tammy Wells, OD 11/25/2024 Telephone [facility] [address] [place] [address] Tammy Wells, OD 11/24/2024 3:30 PM EDT Office Visit [facility] [place] [address] Love Garcia MD Type 2 diabetes mellitus with hyperglycemia, with long-term current use of insulin ([facility]) (Primary Dx); Chronic pain of both shoulders; Gastroesophageal reflux disease without esophagitis; Chest pain, unspecified type; Current moderate episode of major depressive disorder without prior episode (CMS/HCC); Screening examination for STI; Essential hypertension; Class 1 obesity with serious comorbidity and body mass index (BMI) of 32.0 to 32.9 in adult, unspecified obesity type; Dietary counseling; Exercise counseling; Chronic painful diabetic neuropathy ([facility]/HCC) 11/24/2024 Travel 11/17/2024 Refill [facility] [address] [place] [address] Love Garcia MD Essential hypertension 11/03/2024 Refill [facility] [address] [place] [address] Love Garcia MD Primary insomnia 10/24/2024 Telephone [facility] [address] [place] [phone] Lambert Lagos MD Follow-up 10/23/2024 Telephone [facility] [address] [place] [address] Lambert Lagos MD 10/21/2024 1:20 PM EST Office Visit [facility] [address] [place] [phone] Demond, MD Lambert Asthma with acute exacerbation, unspecified asthma severity, unspecified whether persistent (Primary Dx); Cough, unspecified type; Lung crackles 10/21/2024 Telephone [facility] [address] [place] [phone] Geena Alonzo RN Results 10/20/2024 Telephone [facility] [address] [place] [address] Love Garcia MD Nurse Triage 10/08/[address] [phone] Love Garcia MD Type 2 diabetes mellitus with hyperglycemia, with long-term current use of insulin ([facility]) 09/17/2024 Telephone [facility] [address] [place] [address] [phone] Love Garcia MD Nurse Triage 09/05/[address] [address] Love Garcia MD from Last 3 Months [...] FIT DNA/Cologuard 1960 FIT 1960 FOBT 1960 Sigmoidoscopy 1960 Diabetes: Foot Exam 1972 Hepatitis A Vaccines (1 of 2 - [...] 11/12/2023 Depression Screening 11/11/2024 11/12/2023, 11/12/19 24 SDOH Screening 11/11/2024 11/12/2023 Eye Exam 01/26/2025 01/26/2023, 06/0 09/2022, 01/26/2023, Additional history exists Diabetes: Hemoglobin A1C 02/23/2025 025, 08/01/2024, 11/12/2023, Additional history exists Diabetes: Urine Protein Screening 11/24/2025 11/24/2024, 11/12/2023, 01/02/2022, Additional history exists Lipid Panel 11/24/2025 11/24/2024, 10/25, 01/02/2022 Alcohol/Substance Use Screening 11/26/2025 11/26/2024 Tobacco Screening 11/26/2025 11/26/2024 DTaP/Tdap/Td Vaccines (2 - Td or Tdap) 05/02/2027 05/02/2017 Pneumococcal Vaccine: 50+ Years Completed 06/16/2022, 05/02/2017 Influenza Vaccine Completed 08/01/2024, , 06/04/2020, Additional history exists HIV Screening Completed 11/24/2024 Hepatitis C Screening Completed 11/24/2024, 022 HIB Vaccines Aged Out No longer eligi [...] Associated Diagnosis Comments XR SHOULDER 2+ VIEWS LEFT Routine 11/28/2024 2:55 PM EDT Chronic pain of both shoulders XR SHOULDER 2+ VIEWS RIGHT Routine 11/28/2024 2:55 PM EDT Chronic pain of both shoulders CBC WITH AUTO DIFFERENTIAL Routine 11/24/2024 4:24 PM EDT Type 2 diabetes mellitus with hyperglycemia, with long-term current use of insulin (CMS/HCC) C-REACTIVE PROTEIN Routine 11/24/2024 4: 24 PM EDT Type 2 diabetes mellitus with hyperglycemia, with long-term current use of insulin (CMS/HCC) SED RATE BY MODIFIED WESTERGREN Routine 11/24/2024 4:24 PM EDT Type 2 diabetes mellitus with hyperglycemia, with long-term current use of insulin (CMS/HCC) TSH W/REFLEX TO FT4 Routine 11/24/2024 4 :24 PM EDT Class 1 obesity with serious comorbidity and body mass index (BMI) of 32.0 to 32.9 in adult, unspecified obesity type HEPATITIS C AB W/REFL TO HCV RNA, QN, PCR Routine 11/24/2024 4:24 PM EDT Screening examination for STI HIV 1/2 ANTIGEN/ANTIBODY, FOURTH GENERATION W/RFL Routine 11/24/2024 4:24 PM EDT Screening examination for STI ALBUMIN, RANDOM URINE W/CREATININE Routine 11/24/2024 4:24 [...] hyperglycemia, with long-term current use of insulin ([facility]) XR CHEST 2 VIEWS Routine 10/21/2024 2:38 [...] 10/21/2024 1:38 PM EST Cough, unspecified type MAMMOGRAM GENERIC Routine 02/03/2022 1:4 2 PM EDT HM COLONOSCOPY Routine 08/08/2017 1:25 PM EST from Last 3 Months or Most Recently Relevant to Health Maintenance Results * XR Shoulder 2+ Views Right (11/28/2024 2:55 PM EDT) Anatomical Region Laterality Modality Upper Extremities, Shoulder Right Radi ographic Imaging 11/28/2024 2:55 PM EDT Narrative 11/28/2024 3:58 PM EDT ?[facility] ?[address] ?[place] [address] ?XRay Report ? Signed ? Patient: Mclean,Ada ?MR#: [id number] ? : 1960 ?Acct:[id number] ? Age/Sex: 64 / F ?ADM Date: 04/04/25 ? Loc: HO.HHCX ? Attending Dr: Love Garcia MD ? Ordering Physician: Love Garcia ?? Date of Service: 11/28/24 ?? Procedure(s): XR shoulder RT min 2V ?? Accession Number(s): [id number] ? cc: Love Garcia ? EXAMINATION: ?? [...] DD/ 1455 ? TD/TT: 11/28/24 1500 ? Bryologist: ? Procedure Note Penny Jackson - 11/28/[address] [address] XRay Report Signed Patient: Kelle Mclean#: [id number] : 1960Acct:[id number] Age/Sex: 64 / FADM Date: 11/28/24 Loc: HO.HHCX Attending Dr: Love Garcia MD Ordering Physician: Love Garcia Date of Service: 11/28/24 Procedure(s): XR shoulder RT min 2V Accession Number(s): [id number] cc: Love Garcia EXAMINATION: XR SHOULDER, RIGHT [...] 11/28/24 1556 DD/ 1455 TD/TT: 11/28/24 1500 Bryologist: us Love Garcia MD IMG XR PROCEDURES Final Result * XR Shoulder 2+ Views Left (11/28/2024 2:55 PM EDT) Anatomical Region Laterality Modality Upper Extremities, Shoulder Left Radi ographic Imaging 11/28/2024 2:55 PM EDT Narrative 11/28/2024 4:00 PM EDT ?[facility] ?[address] ?[place] [address] ?XRay Report ? Signed ? Patient: Mclean,Ada ?MR#: [id number] ? : 1960 ?Acct:[id number] ? Age/Sex: 64 / F ?ADM Date: 11/28/24 ? Loc: HO.HHCX ? Attending Dr: Love Garcia MD ? Ordering Physician: Love Garcia ?? Date of Service: 11/28/24 ?? Procedure(s): XR shoulder LT min 2V ?? Accession Number(s): [id number] ? cc: Love Garcia ? EXAMINATION: ?? [...] Peterson MD ??11/28/2024 03:58 PM ?? EDT RP ? Dictated By: ?Sarmad Ellis MD ? Signed By: ?<Electronically signed by Sarmad Stanford MD in OV> ? 11/28/24 1558 ? DD/ 1455 ? TD/TT: 11/28/24 1500 ? Bryologist: ? Procedure Note Donotpiedadinterpreter, Image - 11/28/[address] [address] XRay Report Signed Patient: Kelle Mclean#: [id number] : 1960Acct:[id number] Age/Sex: 64 / FADM Date: 11/28/24 Loc: HO.HHCX Attending Dr: Love Garcia MD Ordering Physician: Love Garcia Date of Service: 11/28/24 Procedure(s): XR shoulder LT min 2V Accession Number(s): [id number] cc: Love Garcia EXAMINATION: XR SHOULDER, LEFT [...] Sarmad Peterson MD 11/28/2024 03:58 PM EDT Dictated By: Sarmad Elils MD Signed By: <Electronically signed by Sarmad Stanford MDin OV> 11/28/24 1558 DD/ 1455 TD/TT: 11/28/24 1500 Bryologist: Love Garcia MD IMG XR PROCEDURES Final Result * TSH W/Reflex to FT4 (11/24/2024 4:24 PM EDT) TSH reflex Free T4 0.76 0.32 - 4.0 uIU/mL [facility] Blood Venous blood specimen / Unknown 11/24/2024 4:24 PM EDT 11/24/2024 5:57 PM EDT Love Garcia MD LAB BLOOD ORDERABLES Final Res ult Performing Organization Address [facility] de Phone Number [facility] [address] [place] [address] [phone] * (ABNORMAL) Albumin, Random Urine W/Creatinine (11/24/2024 4:24 PM EDT) Creatinine, Urine 95.66 mg/dL [facility] Microalbumin Urine 45.0 mg/L [facility] Microalbum Creatinine Ratio Ur 47.0(H) <30 ug/mg cr [facility] Comment:Albumin/Creatinine R atio Reference Ranges: Normal: < 30 ug/mg creatinine Microalbuminuria: 30 - 300 ug/mg creatinineClinical Albuminuria: > 300 ug/mg creatinine Urine (Urine, Random) 11/24/2024 4:24 PM EDT 11/24/2024 5:59 PM EDT us Love Garcia MD LAB URINE ORDERABLES Final Res ult Performing Organization Address [facility] Co de Phone Number [facility] [address] [place] [address] [phone] * (ABNORMAL) CBC auto differential (11/24/2024 4:24 PM EDT) White Blood Count 6.4 4.8 - 10.8 X10*3/uL [facility] Red Blood Count 4.02(L) 4.20 - 5.50 X10*6/uL [facility] Hemoglobin 10.5(L) 12.0 - 16.0 g/dl [facility] Hematocrit 33.4(L) 37.0 - 47.0 % [facility] Mean Corpuscular Volume 83.1 80.0 - 98.0 fL [facility] Mean Corpuscular Hemoglobin 26.1(L) 27.0 - 33.0 pg [facility] Mean Corpuscular HGB Conc 31.4 31.0 - 35.0 g/dl [facility] Red Cell Distribution Width 14.0 11.0 - 16.0 % [facility] Platelet Count 186 160 - 400 X10*3/uL [facility] Mean Platelet Volume 12.3 9.4 - 12.3 fL [facility] Neutrophils Percent Auto 71.6 45 - 73 % [facility] Imm Gran Pct Auto 0.6(H) 0.0 - 0.4 % [facility] Lymphocytes Percent Auto 16.1(L) 20 - 40 % [facility] Monocytes Percent Auto 8.7 2 - 11 % [facility] Eosinophils Percent Auto 2.5 0 - 4 % [facility] Basophils Percent Auto 0.5 0 - 2 % [facility] NRBC Pct Auto 0.0 0.0 - 0.2 /100WBC [facility] Neutrophils Absolute Auto 4.6 2.0 - 8.3 x10*3/uL [facility] Imm Gran Abs Auto 0.04(H) 0.00 - 0.03 X10*3/uL [facility] Lymphocytes Absolute Auto 1.0(L) 1.2 - 4.9 X10*3/uL [facility] Monocytes Absolute Auto 0.6 0.1 - 1.2 X10*3/uL [facility] Eosinophils Absolute Auto 0.2 0.0 - 0.4 X10*3/uL [facility] Basophils Absolute Auto 0.0 0.0 - 0.2 X10*3/uL [facility] NRBC Abs Auto 0.000 0.0 - 0.012 X10*3/uL [facility] Blood Venous blood specimen / Unknown 11/24/2024 4:24 PM EDT 11/24/2024 5:57 PM EDT Love Garcia MD LAB BLOOD ORDERABLES Final Res ult Performing Organization Address [facility] Co de Phone Number [facility] [address] [place] [phone] * Hepatitis C Antibody with Reflex to HCV, RNA, Quantitative, Real-Time PCR (11/24/2024 4:24 PM EDT) Pathologist [facility] Hepatitis C Antibody Nonreactive Nonreactive [facility] Comment:Antibodies to HCV no t detected; does not exclude early acuteHCV infection. Blood Venous blood specimen / Unknown 11/24/2024 4:24 PM EDT 11/24/2024 5:57 PM EDT Love Garcia MD LAB BLOOD ORDERABLES Final Res ult Performing Organization Address [facility] de Phone Number [facility] [address] [place] [phone] * HIV-1/2 Antigen and Antibodies, Fourth Generation, with Reflexes (11/24/2024 4:24 PM EDT) Pathologist [facility] HIV AB/AG Nonreactive Nonreactive [facility] Comment:HIV-1 p24 Ag and/or HIV-1/HIV-2 Ab not detected.A test result that is nonreactive does not exclude thepossibility of exposure to or infection with HIV-1 and/orHIV-2. Nonreactive results in this assay for individualswith prior exposure to HIV-1 and/or HIV-2 may be due toantigen and antibody levels that are below the limit ofdetection of this assay.The BitWallniROLI HIV Ag/Ab Combo assay result andsupplemental assay results should be interpreted inconjunction with the patient's clinical presentation,history and other laboratory results. If the results areinconsistent with clinical evidence, additional testing issuggested to confirm the result. Blood Venous blood specimen / Unknown 11/24/2024 4:24 PM EDT 11/24/2024 5:57 PM EDT Love Garcia MD LAB BLOOD ORDERABLES Final Res ult Performing Organization Address [facility] de Phone Number [facility] [address] [place] [phone] * (ABNORMAL) Sed Rate by Modified Westergren (11/24/2024 4:24 PM EDT) Pathologist [facility] Erythrocyte Sedimentation Rate 44(H) 0 - 20 MM/HR [facility] Comment:Patients with polycy themia and many hemoglobin abnormalitiesmay have depressed sed rates whereas patients with anemiamay have elevated sed rates. Blood Venous blood specimen / Unknown 11/24/2024 4:24 PM EDT 11/24/2024 5:57 PM EDT Love Garcia MD LAB BLOOD ORDERABLES Final Res ult Performing Organization Address [facility] de Phone Number [facility] [address] [place] [phone] * (ABNORMAL) C-reactive Protein (11/24/2024 4:24 PM EDT) Pathologist [facility] C Reactive Protein 1.34(H) < or = 0.50 mg/dL [facility] Blood Venous blood specimen / Unknown 11/24/2024 4:24 PM EDT 11/24/2024 5:57 PM EDT Love Garcia MD LAB BLOOD ORDERABLES Final Res ult Performing Organization Address [facility] Co de Phone Number [facility] [address] [place] [phone] * (ABNORMAL) Lipid Panel, Standard (11/24/2024 4:24 PM EDT) Triglycerides 151(H) <150 mg/dL [facility] Comment:Desirable Triglyceri de: less than 150 mg/dLBorderline High Triglyceride 150-199 mg/dLHigh Triglyceride: 200-499 mg/dLVery High Triglyceride: greater than or equal to 5OO mg/dL Cholesterol 164 <200 mg/dL [facility] Comment:Desirable Cholestero l: less than 200 mg/dLBorderline High Cholesterol: 200-239 mg/dLHigh Cholesterol: greater than 239 mg/dL LDL Cholesterol Calculated 101(H) <100 mg/dL [facility] Comment:Desirable LDL: less than 100 mg/dLNear Optimal/Above Optimal LDL: 110- 129 mg/dLBorderline High LDL: 130-159 mg/dLHigh LDL: 160-189 mg/dLVery High LDL: greater than or equal to 190 mg/dL HDL Cholesterol 33(L) >40 mg/dL [facility] Comment:Desirable HDL: great er than 40 mg/dL Note: This HDL assay may give artificially low results in patients with liver disease. Blood Venous blood specimen / Unknown 11/24/2024 4:24 PM EDT 11/24/2024 5:57 PM EDT Love Garcia MD LAB BLOOD ORDERABLES Final Res ult [facility] [address] [place] [phone] * (ABNORMAL) POCT Glucose (11/24/2024 3:52 [...] Blood 11/24/2024 3:51 PM EDT us Love Garcia MD POINT OF CARE TEST ENTER/EDIT ORDERABLES Final Result * XR Chest 2 Views (10/21/2024 2:38 PM EST) Anatomical Region Laterality Modality Chest Radiographic Chrissy ging 10/21/2024 2:38 PM EST Narrative 10/21/2024 3:30 PM EST ?[facility] ?[address] ?[place] [address] ?XRay Report ? Signed ? Patient: Mclean,Ada ?MR#: [id number] ? : 1960 ?Acct:[id number] ? Age/Sex: 63 / F ?ADM Date: 10/21/24 ? Loc: HO.HHCX ? Attending Dr: Lambert Lagos MD ? Ordering Physician: Lambert Lagos MD ?? Date of Service: 10/21/24 ?? Procedure(s): XR chest 2V ?? Accession Number(s): [id number] ? cc: Lambert Lagos MD ? EXAMINATION: [...] DD/ 1438 ? TD/TT: 10/21/24 1500 ? Bryologist: ? Procedure Note Donotuseinterpreter, Image - 10/21/[address] [address] XRay Report Signed Patient: Kelle Mclean#: [id number] : 1960Acct:[id number] Age/Sex: 63 / FADM Date: 10/21/24 Loc: .HHCX Attending Dr: Lambert Lagos MD Ordering Physician: Lambert Lagos MD Date of Service: 10/21/24 Procedure(s): XR chest 2V Accession Number(s): [id number] cc: Lambert Lagos MD EXAMINATION: XR CHEST [...] 10/21/24 1527 DD/ 1438 TD/TT: 10/21/24 1500 Bryologist: Lambert Lagos MD IMG XR PROCEDURES Final Result * Influenza B (ID NOW Rapid Molecular) (10/21/2024 1:44 PM EST) Influenza B Negative Negative, Indeterminate [facility] Swab 10/21/2024 1:44 PM EST us Lambert Lagos MD POINT OF CARE TEST ENTER/EDIT OR DERABLES Final Result Performing Organization Address City/[facility]/ZIP Co de Phone Number [facility] [address] [place] [phone] * Influenza A (ID NOW Rapid Molecular) (10/21/2024 1:44 PM EST) Influenza A Negative Negative, Indeterminate [facility] Swab 10/21/2024 1:44 PM EST us Lambert Lagos MD POINT OF CARE TEST ENTER/EDIT OR DERABLES Final Result Performing Organization Address [facility] Co de Phone Number [facility] [address] [place] [phone] * POCT Rapid COVID Ag (10/21/2024 1:38 PM EST) Pathologist [facility] Rapid COVID Ag Negative Swab 10/21/2024 1:38 PM EST us Lambert Lagos MD POINT OF CARE TEST ENTER/EDIT OR DERABLES Final Result * Mammography Report 1 (02/03/2022 1:42 PM EDT) Anatomical Region Laterality Modality Breast Bilateral Mammography 02/03/2022 1:42 PM EDT Narrative 03/01/2022 4:14 PM EDT Refer to the Notes tab for result details [facility] Procedure: Mammography Report 1 Procedure Note Provider, MD Katie - 11/19/2022 Refer to the Notes tab for result details [facility] Procedure: Mammography Report 1 us Love Garcia MD IMG BI PROCEDURES Final Result * Hm Colonoscopy (08/08/2017 1:25 PM EST) us Historical Provider HEALTH MAINTENANCE Final Result from Last 3 Months or Most Recently Relevant to Health Maintenance [place] [address] [place] [address] MEDICARE ADVANTAGE HMO Care Teams Welder Plastic Relationship Specialty Start Date End Date Love Garcia MD [address] [place] [phone] PCP - General Family Medicine 09/14/20
--- OUTSIDE RECORDS SUMMARY | 2024-11-28 16:23 | XMS_ITS | Encounter Summary ---
Author Organization [employer] Address [address] [place] [address] [address] [place] [address] Care Team Providers Care Filter Tank Tender Name Role Phone Love Garcia MD Primary Care Provider Reason for Visit * Reason Comments Med Refill Encounter Details Date Type Department Care Team ([facility] st Contact Info) Description 02/06/2023 Refill [facility] [address] [place], [place] [phone] Love Garcia MD [address] [place] [address] Social History Tobacco Use Types Packs/Day Years [...] documented as of this encounter Care Teams Filter Tank Tender Relationship Specialty Start Date End Date Love Garcia MD [address] [place] [address] PCP - General Family Medicine 09/14/20 documented as of this encounter
--- OUTSIDE RECORDS SUMMARY | 2024-11-28 16:23 | XMS_ITS | Encounter Summary ---
Author Organization [employer] Address [address] [facility] 7[address] [place] [address] Care Team Providers Care Gas Jockey Name Role Phone Love Garcia MD Primary Care Provider [phone] Reason for Visit * Reason Onset Date Comments Call Back Request 01/14/2024 Encounter Details Date Type Department Care Team ([facility] st Contact Info) Description 01/14/2024 Telephone [facility] MEDICINE [address] [place], [place] [phone] Love Garcia MD [address] [place], [place] [phone] Call Back Request Social History Tobacco Use [...] 4:00 PM EDT TC placed to pt [phone] in regards to below message. Pt informed [...] a cholesterol medication. Please contact pt at [phone] documented in this encounter Plan of Treatment Not on file documented as of this encounter Visit Diagnoses Not on filedocumented in this encounter Additional Health Concerns Assessment Noted Time PHQ-9 Depression Total Score: 16 024 3:45 PM EDT documented as of this encounter Care Teams Gas Jockey Relationship Specialty Start Date End Date Love Garcia MD [address] [place] [address] PCP - General Family Medicine 09/14/20 documented as of this encounter
--- OUTSIDE RECORDS SUMMARY | 2024-11-28 16:23 | XMS_ITS | Encounter Summary ---
Author Organization [employer] Address [address] [facility] 7t [place] [address] Care Team Providers Care Bicycle Fitter Name Role Phone Love Garcia MD Primary Care Provider [phone] Encounter Details Date Type Department Care Team (Late st Contact Info) Description 01/03/2024 Orders Only [facility] MEDICINE [address] [place] [address] ProviderKatie MD Social History Tobacco Use Types [...] documented as of this encounter Care Teams Bicycle Fitter Relationship Specialty Start Date End Date Love Garcia MD [address] [place] [address] PCP - General Family Medicine 09/14/20 documented as of this encounter
== END 2024-11-28 14:56 | disposition home or self-care (01) ==
LOC: HO.HHCX 14:55
PROVIDERS: Visit Provider General Practice
DX: M25.511 Pain in right shoulder (principal); M25.512 Pain in left shoulder; G89.29 Other chronic pain
CPT/HCPCS: 73030

== ENCOUNTER → 2024-11-28 14:55 | Outpatient (BNV) | payer MEDICARE, SELFPAY | PROVIDERS: Visit Provider Radiology Diagnostic Radiology | DX: M25.511 Pain in right shoulder (principal); M25.512 Pain in left shoulder | CPT/HCPCS: 73030 ==

== ENCOUNTER 2025-04-28 15:03 | Outpatient (REF) | payer MEDICARE, SELFPAY ==
--- OUTSIDE RECORDS SUMMARY | 2025-01-21 10:30 | XMS_ITS | Continuity of Care Document ---
Author Organization [facility] Address [address] [place] [address] Phone Care Team Providers Care Assembler Fluorescent Lights Name Role Phone Alvarado SON, RVT, MICHELE, Uriel Unavailable U navailable Allergies, Adverse Reactions, Alerts Substance Reaction Status Criticality PENICILLIN Active No Information Medications Medication Instructions Dosage Effective Dates (start - stop) Status Comments METOPROLOL SUCCINATE (unknown strength) Not Available - Active GABAPENTIN (unknown strength) Not Available - Active GLIPIZIDE (unknown strength) Not Available - Active METFORMIN HCL (unknown strength) Not Available - Active OMEPRAZOLE MAGNESIUM (unknown strength) Not Available - Active Procedures Procedure Date Office/Outpt E&M Established 15 Mins- CT & [place] Duplex Scan-extrem Veins; Comp- CT & [place] Office/Outpt E&M Established 10 Mins Jul Duplex Scan-extrem Veins; Comp Duplex Scan-extrem Veins; Uni/ 23 Endovenous Rf, 1st Vein Inj Scleros Solut; Mx Veins 1 3 Ultrason Guidan Needle Bx-rad 3 Duplex Scan-extrem Veins; Uni/ Endovenous Rf, 1st Vein Inj Scleros Solut; Mx Veins 1 3 Offic/outpt E&m Estab 5 Min Trial - Tele medicine Duplex Scan-extrem Veins; Comp Office/Oupt E&M New Pt 45 Mins Advance Directives Directive Yes / No Effective Date File Name No Information Encounters Encounter Description Practice Location Reason(s) For Visit Diagnoses Date Provider Providers Copied on Encounter Office/Outpt E&M Established 15 Mins- [place] & [facility], [address] [place] [address] Dr Y[address]rough [address], [id number], tel:[phone] CV[place] - [place] - [place] Type 2 diabetes mellitus without complications Restless legs syndromeEssen tial (primary) hypertensionV enous insufficiency (chronic) (peripheral)P ain in right lower legPain in left lower legLocalized edemaCramp and spasm 5 Alvarado SON RVT, MICHELE Trevino. [address] [place] [address], [id number], [place]. tel:[phone] Referring Provider: Love Garcia MD, [address] [place] [address], [address]. tel:[phone] [place] [facility], [address] [place] [address] Dr [facility]arbrough [facility] [place], [id number], [place] tel:[phone] [facility] hypertension (idiopathic) with other complications of bilateral lower extremity 5 Alvarado SON RVT, MICHELE Trevino. [address] [place] [address], [place], [place], [id number], [place]. tel:[phone] Referring Provider: Love Garcia MD, [address] [place] [address], [address]. tel:[phone] Office/Outpt E&M Established 10 Mins Christel [facility], [address] [place] [address] Dr Y[address]rough [address], [id number], [place] tel:[phone] CVR - [facility] Venous insufficiency (chronic) (peripheral)T ype 2 diabetes mellitus without complications Essential (primary) hypertension 3 Alvarado SON RVT, MICHELE Trevino. [address] [place] [address], [place], [place], [id number], [place]. tel:[phone] Referring Provider: Love Garcia MD, [address] [place] [address], [address]. tel:[phone] [facility], [address] [place] [address] Dr Yarbrough [address]Suite [place], [id number], [place] tel:[phone] CVR - [facility] Encounter for follow-up examination after completed treatment for conditions other than malignant ne 3 Alvarado SON, SHANAET, MICHELE Trevino. [address] [place] [address], [place], [place], [id number], [place]. tel:[phone] Referring Provider: Love Garcia MD, [address] [place] [address], [address]. tel:[phone] [facility], [address] [place] [address] Dr Yarbrough [address]Suite [place], [id number], [place] tel:[phone] CVR - [facility] Encounter for follow-up examination after completed treatment for conditions other than malignant nePain in right leg 3 Jack JOLLYT MICHELE [place]. [address] [place] [address], [place], [address], [place]. tel:[phone] Referring Provider: Love Garcia MD, [address] [place] [address], [address]. tel:[phone] Christel [facility], [address] [place] [address] Dr Yarbrough [address]Suite [place], [id number], [place] tel:[phone] CVR - [facility] Chronic venous hypertension (idiopathic) with inflammation of right lower extremity 3 Alvarado SON RVT, MICHELE Trevino. [address] [place] [address], [place], [place], [id number], [place]. tel:[phone] Referring Provider: Love Garcia MD, [address] [place] [address], [address]. tel:[phone] Christel [facility], [address] [place] [address] Dr Yarbrough [address], [id number], [place] tel:[phone] CVR - [facility] Varicose veins of left lower extremity with other complications Oct- 3 Alvarado SON, SHANAET, RPNGOZI Trevino. [address] [facility], [address] [facility], [place], [place], [id number], [place]. tel:[phone] Referring Provider: Love Garcia MD, [address] [place] [address], [address]. tel:[phone] [place] [facility], [address] [place] [address] Dr Yarbrough [address] [place], [id number], [place] tel:[phone] CV[place] - [place] Encounter for follow-up examination after completed treatment for conditions other than malignant neChronic venous hypertension (idiopathic) with other complications of left lower extremity May- 3 Jack SON FACS Melissa [place]. [address] [place] [address], [facility] [place], [address], [place]. tel:[phone] Referring Provider: Love Garcia MD, [address] [place] [address], [address]. tel:[phone] [place] [facility], [address] [place] [address] Dr Yarbrough [address] [place], [id number], [place] tel:[phone] [facility] - [place] Varicose veins of left lower extremity with other complications 3 Alvarado OSN, UZAIR, RPNGOZI Trevino. [address] [place] [address], [place] [address], [facility] [place], [id number], [place]. tel:[phone] Referring Provider: Love Garcia MD, [address] [place] [address], [address]. tel:[phone] Offic/outpt E&m Estab 5 Min Trial - Telemedicine [place] [facility], [address] [place] [address] Dr Yarbrough [address], [id number], [place] tel:[phone] [facility] [place] Varicose veins of bilateral lower extremities with pain 3 Jack SON FACS Mleissa [place]. [address] [place] [address], [facility] [place], [address], [place]. tel:[phone] Referring Provider: Love Garcia MD, [address] [place] [address], [address]. tel:[phone] [facility], [address] [place] [address] [facility] [address], [place], [id number], [place] tel:[phone] [facility] Chronic venous htn w oth comp of bilateral low extrm 3 Jack SON FACS RVT RPNGOZI [place]. [facility] [place] [address], [facility] [place], [address], [place]. tel:[phone] Referring Provider: Love Garcia MD, [address] [place] [address], [address]. tel:[phone] Office/Oupt E&M New Pt 45 Mins [facility], [address] [place] [address] Dr Yarbrough [address], [place], [id number], [place] tel:[phone] [facility] Varicose veins of bi low extrem w oth complications Pain in right lower legPain in left lower legPain in right legType 2 diabetes mellitus without complications Restless legs syndromeEssen tial (primary) hypertensionF rosmery joint, unspecified jointPain in left legChest pain, unspecifiedCr amp and spasmLocalize d edema 3 Oz Kwon. [facility] [place] [address], [place], [id number], [place]. tel:[phone] Referring Provider: Love Garcia MD, [address] [place] [address], [address]. tel:[phone] Family History Family Member Type Diagnosis Age At Onset No Information Payers Payer name Insurance type Covered republican ID Authoriza tion(s) [facility] AARP Medic are Complete CI [id number] Social History Type Description Quantity Date Captured Comments Alcohol Use Details Unknown Caffeine Use Details Unknown Tobacco Use Status Smoking Status Smoker, current stat us unknown Non-Smoking Tobacco Use Details : No Details Available : No Details Available Sex Female Vital Signs Date / Time: Height Weight BMI Pulse Rate Blood Pressure Temperature Respiratory Rate Body Surface Area Head Circumference Head Circ. Percentile Wt./Segundo. Percentile BMI percentile Pulse Ox Inhaled Ox 77.110 kg (170.00 lbs) 31.1 2 kg/m eter (2) 130/80 mm[Hg] Chief Complaint And Reason For Visit No Information Reason For Referral Reason For Referral No Information Plan Of Treatment Date Type Action Status Goal Tobacco cessation counseling completed Goal Diet education completed Goal Diet education completed Goal Tobacco cessation counseling completed Goal Tobacco cessation counseling completed Goal Tobacco cessation counseling completed Goal Diet education completed Referral Ordered: Weight management: Referral to physician timeframe: 3 Months (related to Body mass index (BMI) 31.0-31.9, adult) ordered Referral Ordered: Weight management: Referral to physician timeframe: 3 Months (related to Body mass index (BMI) 31.0-31.9, adult) ordered Referral Ordered: Weight management: Referral to physician timeframe: 3 Months (related to Body mass index (BMI) 32.0-32.9, adult) ordered Appointment Tamika Mclean BOOKED Appointment Tamika Mclean BOOKED History Of Present Illness Encounter Date Complaint History Of Prese nt Illness No Information Functional Status Date Functional Assessmen t No Information Instructions Date Instruction Additional Infor gildaion Patient education booklet given Related to Pain in right lower leg Compression stocking usage as conservative measure Related to Pain in right lower leg Lifestyle education Related to B kapil mass index (BMI) 31.0-31.9, adult Giving Encouragement to exercise Related to Body mass index (BMI) 31.0-31.9, adult Diet education Related to Body mass index (BMI) 31.0-31.9, adult Diet education Related to Body mass index (BMI) 31.0-31.9, adult Giving Encouragement to exercise Related to Body mass index (BMI) 31.0-31.9, adult Patient education booklet given Related to Venous insufficiency (chronic) (peripheral) Lifestyle education Related to B kapil mass index (BMI) 31.0-31.9, adult Pre and post instruc tions reviewed and provided Related to Varicose veins of bi low extrem w oth complications Patient education booklet given Related to Varicose veins of bi low extrem w oth complications Lifestyle education Related to B kapil mass index (BMI) 32.0-32.9, adult Giving Encouragement to exercise Related to Body mass index (BMI) 32.0-32.9, adult Diet education Related to Body mass index (BMI) 32.0-32.9, adult Assessments Type Assessment Date No Information Patient Care Teams Name Effective Dates (start - stop) Status Members No Information
--- NOTE | ~2025-04-28 | XR_ITS ---
EXAMINATION: XR CHEST CLINICAL INFORMATION: anemia, chronic cough, asthma, night sweats COMPARISON: 10/21/2024. TECHNIQUE: 2 views of the chest were obtained. FINDINGS: The cardiac, hilar, and mediastinal contours are normal. The lungs are clear bilaterally. There is no pneumothorax or pleural effusion. There is no focal osseous or soft tissue abnormality. There are old healed rib fractures on the left. XR/XR chest 2V IMPRESSION: No active pulmonary disease. Electronically signed by: Doyle Ortiz MD 04/28/2025 04:17 PM EDT RP
--- OUTSIDE RECORDS SUMMARY | 2025-04-28 14:30 | XMS_ITS | Encounter Summary ---
Author Organization [employer] Address 75 [facility] 7[address] [place] [address] Care Team Providers Care Muck Hauler Name Role Phone Love Garcia MD Primary Care Provider [phone] Reason for Visit * Reason Comments sick onsite Encounter Details Date Type Department Care Team ([facility] st Contact Info) Description 04/28/2025 2:30 PM EDT Office Visit [facility] MEDICINE [address] [place], [place] [phone] Rosangela Mcgee NP [address] [place] [address] Microcytic anemia (Primary Dx); Fatigue due to depression; Intermittent asthma without complication, unspecified asthma severity; Type 2 diabetes mellitus with hyperglycemia, with long-term current use of insulin ([facility]); Chronic night sweats Social History Tobacco Use Types Packs/Day Years [...] Sign Reading Time Taken Comments Blood Pressure 130/82 04/28/2025 2:36 PM EDT Pulse 75 04/28/2025 2:36 PM EDT Temperature 36.9 C (98.5 F) 04/28/2025 2:36 PM EDT Respiratory Rate 18 04/28/2025 2:36 PM EDT Oxygen Saturation 96% 04/28/2025 2:36 PM EDT Inhaled Oxygen Concentration - - Weight 76.7 kg (169 lb 3.2 oz) 04/28/2025 2:36 P M EDT Height 157.5 cm (5' 2 ) 04/28/2025 2:36 PM EDT Body Mass Index 30.95 04/28/2025 2:36 PM EDT documented in this encounter Progress Notes * Rosangela Mcgee, CERTIFIED DETENTION DEPUTY - 04/28/2025 2:30 PM EDT Tamika Mclean is a 64 y.o. who presents to the office for Chief Complaint Patient presents with sick onsite Medical History[1] Allergies[2] Tamika Mclean, 64-year-old female - History of anemia six months ago, treated with iron pills, craving for ice abated during treatment but recurred after stopping iron - Persistent craving for ice for months - Hair loss noted, causing stress - Denies vaginal bleeding, denies other bleeding - Reports feeling empty stomach - Weight loss from 180 lbs to 169 lbs over approximately one month, with weight fluctuations - Night sweats started about two months ago - Cough and wheezing at night, uses albuterol inhaler for asthma - History of asthma, currently using inhaler, reports benefit when taken daily - Reports feeling unhappy, stressed, depressed, loss of interest in activities - Bruised knee and swollen ankle after fall in kitchen last week, swelling has decreased - Type 2 diabetes, reports blood sugar levels up to 255, sometimes higher - Decreased appetite, not eating much - Stopped using Zepbound weight loss injection due to high cost - Reports use of ibuprofen and aspirin for pain - Ran out of Jardiance today, takes insulin every night has refills down stairs Review of Systems Constitutional: Negative for activity change and appetite change. Respiratory: Positive for cough, shortness of breath and wheezing. Negative for apnea and chest tightness. Gastrointestinal: Negative for abdominal distention and abdominal pain. Hematological: Negative for adenopathy. BP 130/82 (BP Location: Right arm, Patient Position: Sitting, BP Cuff Size: Adult) Pulse 75 Temp 98.5 ??F (36.9 ??C) (Oral) Resp 18 Ht 5' 2 (1.575 m) Wt 169 lb 3.2 oz (76.7 kg) SpO2 96% BMI 30.95 kg/m?? - HEENT: Head is normocephalic, no acute distress noted. Hair evenly distributed. No injection or exudate on the tonsils. - CARDIOVASCULAR: Regular heart rate. - LUNGS: Clear lung sounds, no wheezes. - ABDOMEN: Abdomen soft, nontender, no masses. - NEUROLOGIC: Alert and oriented x3. - LYMPHATIC: No palpable lymphadenopathy in submandibular, occipital, preauricular, postauricular, or supraclavicular regions. Results: Lab Results Component Value Date WBC 6.4 11/24/2024 HGB 10.5 (L) 11/24/2024 HCT 33.4 (L) 11/24/2024 MCV 83.1 11/24/2024 PLT 186 11/24/2024 Lab Results Component Value Date TSH 0.76 11/24/2024 Wt Readings from Last 4 Encounters: 04/28/25 169 lb 3.2 oz (76.7 kg) 11/24/24 178 lb (80.7 kg) 10/21/24 172 lb 4 oz (78.1 kg) 08/01/24 178 lb (80.7 kg) Assessment & Plan Microcytic anemia Orders: CBC auto differential; Future Iron And Total Iron Binding Capacity; Future TSH W/Reflex to FT4; Future Fatigue due to depression Orders: CBC auto differential; Future Iron And Total Iron Binding Capacity; Future TSH W/Reflex to FT4; Future Intermittent asthma without complication, unspecified asthma severity Orders: fluticasone furoate (Arnuity Ellipta) 100 MCG/ACT inhaler; Inhale 1 puff Once per day. Rinse mouth with water after use to reduce aftertaste and incidence of candidiasis. Do not swallow. XR Chest 2 Views; Future Type 2 diabetes mellitus with hyperglycemia, with long-term current use of insulin ([facility]) Orders: Hemoglobin A1c; Future Chronic night sweats Orders: XR Chest 2 Views; Future Assessment & Plan Microcytic anemia: - Microcytic anemia suspected due to recurrent pica (ice craving) and prior response to iron supplementation. - Ordered CBC with differential and iron studies to evaluate current anemia status. Advised to switch from ibuprofen to acetaminophen to reduce risk of gastrointestinal bleeding. Fatigue due to depression: - Fatigue possibly related to depressive symptoms. - Offered referral to mental health provider for further evaluation and support. Intermittent asthma without complication, unspecified asthma severity: - Asthma with intermittent symptoms, including nocturnal cough and wheezing. - Ordered Arnuity Ellipta inhaler to improve asthma control. Continued use of albuterol inhaler recommended. Type 2 diabetes mellitus with hyperglycemia, with long-term current use of insulin: - Type 2 diabetes with reported hyperglycemia and current insulin use. - Ordered hemoglobin A1c to assess glycemic control. Will review results and adjust therapy as needed. Hair loss: - Hair loss noted, possible association with anemia or thyroid dysfunction. - Ordered thyroid function tests to evaluate for underlying thyroid disorder. Weight loss: - Unintentional weight loss over the past month. - Included in laboratory evaluation to assess for underlying causes. Night sweats: - Night sweats reported, etiology unclear. - Included in laboratory evaluation to assess for underlying causes. Ecchymosis and edema in lower extremity after fall: - Ecchymosis and edema in knee and ankle following recent fall. - Advised monitoring for resolution; no acute intervention indicated at this time. Prescription - Arnuity Ellipta inhaler for asthma maintenance - Acetaminophen in lieu of ibuprofen to reduce risk of gastric irritation and microscopic bleeding Current Medications[3] Based on our discussion, I have outlined the following instructions for you: - Go to the lab to get your blood tests done as ordered. These tests will help check your blood, iron levels, thyroid, and other possible causes for your symptoms. - If you are taking ibuprofen for pain, switch to acetaminophen instead to help protect your stomach. - You have been offered a referral to a mental health provider for more support and evaluation. Consider making an appointment. - Start using the Arnuity Ellipta inhaler as prescribed to help control your asthma symptoms. - Keep using your albuterol inhaler as you have been. - Get your hemoglobin A1c blood test done to check your blood sugar control. - Wait for your doctor to review your test results and let you know if any changes to your treatment are needed. - Watch your knee and ankle for any changes after your fall. If the bruising or swelling gets worseor does not improve, let your doctor know. No urgent treatment is needed right now. Thank you again for your visit, and we look forward to supporting you in your journey to better health. This note was drafted using Ambient (AI) technology. The patient/patient's guardian has been informed and has consented to the use of this technology: Yes [1] Past Medical History: Diagnosis Date COVID-19 12/2020 Depression Diabetes mellitus ([facility]) HLD (hyperlipidemia) Hypertension [2] Allergies Allergen Reactions Penicillin G [3] Current Outpatient Medications: albuterol (2.5 MG/3ML) 0.083% [...] 90 tablet,Rfl: 3 Blood Glucose Monitoring Suppl (ECOStyle [place] Lite) w/Device kit, Use to test blood [...] per day., Disp: 90 tablet, Rfl: 3 Ferrous Sulfate (iron) 325 (65 Fe) MG tablet, TAKE 1 TABLET BY MOUTH EVERY OTHER DAY, Disp: 45 tablet, Rfl: 3 fluticasone furoate (Arnuity Ellipta) 100 MCG/ACT inhaler, Inhale 1 puff Once per day. Rinse mouth with water after use to reduce aftertaste and incidence of candidiasis. Do not swallow., Disp: 1 each, Rfl: 11 FREESTYLE LITE test strip, Use to test blood sugar three times daily, Disp: 100 each, Rfl: 12 gabapentin (Neurontin) 300 MG capsule, Take 1 capsule (300 mg) by mouth 3 times daily., Disp: 300 capsule, Rfl: 3 glipiZIDE (Glucotrol) [...] 3 metoprolol tartrate (Lopressor) 25 MG tablet, TAKE 1 TABLET BY MOUTH TWICE DAILY WITH 50 MG TABLET,Disp: 180 tablet, Rfl: 3 metoprolol tartrate (Lopressor) 50 MG tablet, [...] Inject under the skin if needed. Use [facility], Disp: , Rfl: pramoxine-calamine (Calahist) 1-8 % lotion, apply at bedtime, Disp: , Rfl: sertraline (Zoloft) 50 MG tablet, Take 1 tablet (50 mg) by mouth Once per day., Disp: 90 tablet, Rfl: 3 Super Thin Lancets misc, Use 1 lancet by to skin route 3 times every day, Disp: , Rfl: Sure Comfort Pen [place] 31G X 5 MM misc, USE DIRECTED AT BEDTIME, Disp: 100 each, Rfl: 11 Tirzepatide (Mounjaro) 2.5 MG/0.5ML solution auto-injector, Inject 2.5 mg under the skin 1 (one) time per week., Disp: 2 mL, Rfl: 2 traZODone (Desyrel) 50 MG tablet, TAKE 1 TABLET BY MOUTH EVERY DAY AT BEDTIME, Disp: 90 tablet, Rfl: 3 documented in this encounter Miscellaneous Notes * Assessment & Plan Note - Rosangela Mcgee NP - 04/28/2025 2:30 PM EDTAssociated Problem(s): Microcytic anemia Orders: CBC auto differential; Future Iron And Total Iron Binding Capacity; Future TSH W/Reflex to FT4; Future * Assessment & Plan Note - Rosangela Mcgee NP - 04/28/2025 2:30 PM EDTAssociated Problem(s): Fatigue due to depression Orders: CBC auto differential; Future Iron And Total Iron Binding Capacity; Future TSH W/Reflex to FT4; Future * Assessment & Plan Note - Rosangela Mcgee NP - 04/28/2025 2:30 PM EDTAssociated Problem(s): Intermittent asthma without complication Orders: fluticasone furoate (Arnuity Ellipta) 100 MCG/ACT inhaler; Inhale 1 puff Once per day. Rinse mouth with water after use to reduce aftertaste and incidence of candidiasis. Do not swallow. XR Chest 2 Views; Future * Assessment & Plan Note - Rosangela Mcgee NP - 04/28/2025 2:30 PM EDTAssociated Problem(s): Type 2 diabetes mellitus (CMS/HCC) Orders: Hemoglobin A1c; Future * Assessment & Plan Note - Rosanglea Mcgee NP - 04/28/2025 2:30 PM EDTAssociated Problem(s): Chronic night sweats Orders: XR Chest 2 Views; Future documented in this encounter Plan of Treatment Upcoming Encounters Date Type Department Care Team (Late st Contact Info) Description 06/10/2025 3:15 PM EDT Office Visit [facility] MEDICINE [address] [place] [address] Love Garcia MD [address] [place] [address] 07/02/2025 1:00 PM EST Office Visit [facility] OPTOMETRY [address] [place] [address] Tammy Wells, OD [address] [place] [address] Scheduled Orders Name Type Priority Associated Diagnoses Orde r Schedule CBC auto differential Lab Routine Microcytic anemia Fatigue due to depression Expected: 04/28/2025 (Approximate), Expires: 04/28/2026 Iron And Total Iron Binding Capacity Lab Routine Microcytic anemia Fatigue due to depression Expected: 04/28/2025, Expires: 04/28/2026 TSH W/Reflex to FT4 Lab Routine Microcytic anemia Fatigue due to depression Expected: 04/28/2025 (Approximate), Expires: 04/28/2026 Hemoglobin A1c Lab Routine Type 2 diabetes mellitus with hyperglycemia, with long-term current use of insulin ([facility]) Expected: 04/28/2025 (Approximate), Expires: 04/28/2026 XR Chest 2 Views Imaging Routine Intermittent asthma without complication, unspecified asthma severity Chronic night sweats Expected: 04/28/2025, Expires: 04/28/2026 documented as of this encounter Visit Diagnoses Diagnosis Microcytic anemia- Primary Unspecified iron deficiency anemia Fatigue due to depression Intermittent asthma without complication, unspecified asthma severity Type 2 diabetes mellitus with hyperglycemia, with long-term current use of insulin ([facility]) Chronic night sweats documented in this encounter Additional Health Concerns Assessment Noted Time PHQ-9 Depression Total Score: 16 11/11/2 024 3:45 PM EDT documented as of this encounter Care Teams Muck Hauler Relationship Specialty Start Date End Date Love Garcia MD [address] [place] [id number] PCP - General Family Medicine 09/14/20 documented as of this encounter
[2025-04-28 16:13] LABS: MANUAL DIFF FLAG NO
--- OUTSIDE RECORDS SUMMARY | 2025-04-28 16:16 | XMS_ITS | Encounter Summary ---
Author Organization [employer] Address [address] [place] [address] [address] [address] Care Team Providers Care Cash Grain Grower Name Role Phone Love Garcia MD Primary Care Provider [phone] Reason for Visit * Reason Comments Med Refill Encounter Details Date Type Department Care Team (Late Contact Info) Description 03/10/2023 Refill [facility] MEDICINE [address] [place] [address] [phone] Love Garcia MD [address] [place] [address] [phone] Social History Tobacco Use Types Packs/Day Years [...] as of this encounter Plan of Treatment Upcoming Encounters Date Type Department Care Team (Late Contact Info) Description 06/10/2025 3:15 PM EDT Office Visit [facility] MEDICINE [address] [place] [address] [phone] Love Garcia MD [address] [place] [address] [phone] 07/02/2025 1:00 PM EST Office Visit [facility] OPTOMETRY [address] [place] [address] Tammy Wells, AICHA [address] [place] [address] documented as of this encounter Visit Diagnoses Not on filedocumented in this encounter Additional Health Concerns Assessment Noted Time PHQ-9 Depression Total Score: 14 023 11:44 AM EST documented as of this encounter Care Teams Cash Grain Grower Relationship Specialty Start Date End Date Love Garcia MD [address] [place] [address] PCP - General Family Medicine 09/14/20 documented as of this encounter
--- OUTSIDE RECORDS SUMMARY | 2025-04-28 16:16 | XMS_ITS | Encounter Summary ---
Author Organization [employer] Address 75 [facility] 7t [place] [address] Care Team Providers Care Motion Designer Name Role Phone Love Garcia MD Primary Care Provider Encounter Details Date Type Department Care Team (Late st Contact Info) Description 01/03/2024 Orders Only [facility] MEDICINE [address] [place], [place] [phone] Love Garcia MD [address] [place], [place] [phone] Social History Tobacco Use Types Packs/Day Years [...] Description 06/10/2025 3:15 PM EDT Office Visit [facility] MEDICINE [address] [place] [address] Love Garcia MD [address] [place] [address] 07/02/2025 1:00 PM EST Office Visit [facility] OPTOMETRY [address] [place] [address] Russell, Tammy, OD [address] [place] [address] documented as of this encounter Visit Diagnoses Not on filedocumented in this encounter Additional Health Concerns Assessment Noted Time PHQ-9 Depression Total Score: 16 024 3:45 PM EDT documented as of this encounter Care Teams Motion Designer Relationship Specialty Start Date End Date Love Garcia MD [address] [place] [phone] PCP - General Family Medicine 09/14/20 documented as of this encounter
--- OUTSIDE RECORDS SUMMARY | 2025-04-28 16:16 | XMS_ITS | Encounter Summary ---
Author Organization [employer] Address 75 [facility] 7t [place] [address] Care Team Providers Care Oceanography Teacher Name Role Phone Love Garcia MD Primary Care Provider Reason for Visit * Reason Onset Date Comments Call Back Request 01/14/2024 Encounter Details Date Type Department Care Team ([facility] st Contact Info) Description 01/14/2024 Telephone [facility] MEDICINE [address] [place], [place] [phone] Love Garcia MD [address] [place], [place] [phone] Call Back Request Social History Tobacco Use [...] 4:00 PM EDT TC placed to pt [phone] in regards to below message. Pt informed [...] a cholesterol medication. Please contact pt at [phone] documented in this encounter Plan of Treatment Upcoming Encounters Date Type Department Care Team (Late st Contact Info) Description 06/10/2025 3:15 PM EDT Office Visit [facility] MEDICINE [address] [place] [address] Love Garcia MD [address] [place], [place] [phone] 07/02/2025 1:00 PM EST Office Visit [facility] OPTOMETRY [address] [place] [address] Tammy Wells, OD [address] [place] [address] documented as of this encounter Visit Diagnoses Not on filedocumented in this encounter Additional Health Concerns Assessment Noted Time PHQ-9 Depression Total Score: 16 024 3:45 PM EDT documented as of this encounter Care Teams Oceanography Teacher Relationship Specialty Start Date End Date Love Garcia MD [address] [place] [address] PCP - General Family Medicine 09/14/20 documented as of this encounter
--- OUTSIDE RECORDS SUMMARY | 2025-04-28 16:16 | XMS_ITS | Encounter Summary ---
Author Organization [employer] Address 75 [facility] 7t [place] [address] Care Team Providers Care Director Of Accounts Receivable Name Role Phone Love Garcia MD Primary Care Provider [phone] Reason for Visit * Reason Comments Med Refill Encounter Details Date Type Department Care Team ([facility] st Contact Info) Description 04/24/2025 Refill [facility] MEDICINE [address] [place], [place] [phone] Love Garcia MD [address] [place], [place] [phone] Social History Tobacco Use Types Packs/Day Years [...] the past 12 months, has t he [employer], gas, oil or water [employer] threatened to shut off services in your [...] Description 06/10/2025 3:15 PM EDT Office Visit [facility] MEDICINE [address] [place] [address] Love Garcia MD [address] [place] [address] 07/02/2025 1:00 PM EST Office Visit [facility] OPTOMETRY [address] [place] [address] Tammy Wells OD [address] [place] [address] documented as of this encounter Visit Diagnoses Not on filedocumented in this encounter Additional Health Concerns Assessment Noted Time PHQ-9 Depression Total Score: 16 024 3:45 PM EDT documented as of this encounter Care Teams Director Of Accounts Receivable Relationship Specialty Start Date End Date Love Garcia MD 230 [facility] [place] [address] PCP - General Family Medicine 09/14/20 documented as of this encounter
--- OUTSIDE RECORDS SUMMARY | 2025-04-28 16:16 | XMS_ITS | Encounter Summary ---
Author Organization [employer] Address [address] [facility] 7t [place] [address] Care Team Providers Care Public Health Representative Name Role Phone Love Garcia MD Primary Care Provider [phone] Reason for Visit * Reason Onset Date Comments Med Refill 08/08/2023 Encounter Details Date Type Department Care Team ([facility] st Contact Info) Description 08/08/2023 Telephone [facility] MEDICINE [address] [place], [place] [phone] Love Garcia MD [address] [place], [place] [phone] Med Refill Social History Tobacco Use Types [...] to PCP. * Telephone Encounter - Eddie eSrrano - 08/08/2023 12:19 PM EST Tc from pt requesting medication refill for insulin glargine (Lantus SoloStar) 100 UNIT/ML pen. documented in this encounter Plan of Treatment Upcoming Encounters Date Type Department Care Team (Late st Contact Info) Description 06/10/2025 3:15 PM EDT Office Visit [facility] MEDICINE [address] [place] [address] Love Garcia MD [address] [place] [address] 07/02/2025 1:00 PM EST Office Visit [facility] OPTOMETRY [address] [place] [address] Tammy Wells OD [address] [place] [address] documented as of this encounter Visit Diagnoses Not on filedocumented in this encounter Additional Health Concerns Assessment Noted Time PHQ-9 Depression Total Score: 14 023 11:44 AM EST documented as of this encounter Care Teams Public Health Representative Relationship Specialty Start Date End Date Love Garcia MD [address] [place] [address] PCP - General Family Medicine 09/14/20 documented as of this encounter
--- OUTSIDE RECORDS SUMMARY | 2025-04-28 16:16 | XMS_ITS | Encounter Summary ---
Author Organization [employer] Address 75 [facility] 7t [place] [address] Care Team Providers Care Registered Nurse Name Role Phone Love Garcia MD Primary Care Provider [phone] Encounter Details Date Type Department Care Team (Late Contact Info) Description 11/03/2022 Orders Only [facility] MEDICINE [address] [place], [place] [phone] Love Garcia MD [address] [place], [place] [phone] Type 2 diabetes mellitus with hyperglycemia, with long-term current use of insulin ([facility]) (Primary Dx) Social History Tobacco Use Types [...] Description 06/10/2025 3:15 PM EDT Office Visit [facility] MEDICINE [address] [place] [address] Love Garcia MD [address] [place] [address] 07/02/2025 1:00 PM EST Office Visit [facility] OPTOMETRY [address] [place], [place] [phone] Tammy Wells, OD [address] [place] [address] documented as of this encounter Visit Diagnoses Diagnosis Type 2 diabetes mellitus with hyperglycemia, with long-term current use of insulin ([facility])- Primary documented in this encounter Additional Health Concerns Assessment Noted Time PHQ-9 Depression Total Score: 14 023 11:44 AM EST documented as of this encounter Care Teams Registered Nurse Relationship Specialty Start Date End Date Love Garcia MD [address] [place] [address] PCP - General Family Medicine 09/14/20 documented as of this encounter
--- OUTSIDE RECORDS SUMMARY | 2025-04-28 16:16 | XMS_ITS | Encounter Summary ---
Author Organization [employer] Address 75 [facility] 7t [place] [address] Care Team Providers Care Extractor Plant Operator Name Role Phone Love Garcia MD Primary Care Provider [phone] Encounter Details Date Type Department Care Team (Late st Contact Info) Description 01/03/2024 Orders Only [facility] MEDICINE [address] [place] [address] ProviderKatie MD Social History Tobacco Use Types [...] Description 06/10/2025 3:15 PM EDT Office Visit [facility] MEDICINE [address] [place] [address] Love Garcia MD [address] [place] [address] 07/02/2025 1:00 PM EST Office Visit [facility] OPTOMETRY [address] [place], [place] [phone] Tammy Wells, OD [address] [place] [address] documented as of this encounter Procedures Procedure Name Priority Date/Time Associated Diagnosis Comments HM COLONOSCOPY Routine 08/08/2017 1:25 PM EST documented in this encounter Results * Hm Colonoscopy (08/08/2017 1:25 PM EST) Historical Provider HEALTH MAINTENANCE Final Result documented in this encounter Visit Diagnoses Not on filedocumented in this encounter Additional Health Concerns Assessment Noted Time PHQ-9 Depression Total Score: 16 024 3:45 PM EDT documented as of this encounter Care Teams Extractor Plant Operator Relationship Specialty Start Date End Date Love Garcia MD [address] [place] [address] PCP - General Family Medicine 09/14/20 documented as of this encounter
--- OUTSIDE RECORDS SUMMARY | 2025-04-28 16:16 | XMS_ITS | Encounter Summary ---
Author Organization [employer] Address [address] [place] [address] 7t [place] [address] Care Team Providers Care Behavioral Health Aide Name Role Phone Love Garcia MD Primary Care Provider [phone] Reason for Referral * Consultation (Routine) - Authorized Specialty Diagnoses / Procedures Referred By Juanis mariscal Referred To Contact Orthopaedic Surgery Diagnoses Impingement syndrome of left shoulder Love Garcia MD [address] [place] [address] Phone: tel: fax: [facility] [address] [place] [address] Drive [address] [place], [place] Phone: tel: fax: Referral ID Status Reason Start Date Expiration Date Visits Requested Visits Authorized [id number] Authorized Specialty Services Required 12/08/2024 12/08/2025 1 1 Encounter Details Date Type Department Care Team (Late st Contact Info) Description 11/26/2024 Orders Only [facility] MEDICINE [address] [place], [place] [phone] Love Garcia MD [address] [place], [place] [phone] Impingement syndrome of left shoulder (Primary Dx) Social History Tobacco Use Types [...] is your housing situation today? I have everettreinaldo camargo 11/12/[address] you [...] Description 06/10/2025 3:15 PM EDT Office Visit [facility] [address] [place] [address] Love Garcia MD [address] [place], [place] [phone] 07/02/2025 1:00 PM EST Office Visit [facility] OPT[facility] [address] [place], [place] [phone] Tammy Wells, OD [address] [place] [address] Scheduled Referrals Name Type Priority Associated Diagnoses Order Schedule Referral to Orthopaedic Surgery Outpatient Referral Routine Impingement syndrome of left shoulder Expected: 12/08/2024 (Approximate), Expires: 12/08/2025 documented as of this encounter Visit Diagnoses Diagnosis Impingement syndrome of left shoulder- Primary documented in this encounter Additional Health Concerns Assessment Noted Time PHQ-9 Depression Total Score: 16 11/11/2 024 3:45 PM EDT documented as of this encounter Care Teams Behavioral Health Aide Relationship Specialty Start Date End Date Love Garcia MD [address] [place] [phone] PCP - General Family Medicine 09/14/20 documented as of this encounter
--- OUTSIDE RECORDS SUMMARY | 2025-04-28 16:16 | XMS_ITS | Encounter Summary ---
Author Organization [employer] Address [address] [place] [address] [address] [place] [address] Care Team Providers Care Veteran Appeals Reviewer Name Role Phone Love Garcia MD Primary Care Provider [phone] Encounter Details Date Type Department Care Team (Late Contact Info) Description 04/27/2023 Abstract [facility] MEDICINE [address] [place] [address] Carol Donato Social History Tobacco Use Types [...] Description 06/10/2025 3:15 PM EDT Office Visit [facility] MEDICINE [address] [place], [place] [phone] Love Garcia MD [address] [place], [place] [phone] 07/02/2025 1:00 PM EST Office Visit [facility] OPTOMETRY [address] [place], [place] [phone] Tammy Wells, OD [address] [place] [address] documented as of this encounter Visit Diagnoses Not on filedocumented in this encounter Additional Health Concerns Assessment Noted Time PHQ-9 Depression Total Score: 14 023 11:44 AM EST documented as of this encounter Care Teams Veteran Appeals Reviewer Relationship Specialty Start Date End Date Love Garcia MD [address] [place] [address] PCP - General Family Medicine 09/14/20 documented as of this encounter
--- OUTSIDE RECORDS SUMMARY | 2025-04-28 16:16 | XMS_ITS | Encounter Summary ---
Author Organization [employer] Address [address] [facility] [address]t [place] [address] Care Team Providers Care Meal Packer Name Role Phone Love Garcia MD Primary Care Provider [phone] Encounter Details Date Type Department Care Team (Late st Contact Info) Description 11/14/2023 Orders Only [facility] MED[facility]INE [address] [place], [place] [phone] Love Garcia MD [address] [place], [place] [phone] Chronic pruritus (Primary Dx) Social History Tobacco [...] Description 06/10/2025 3:15 PM EDT Office Visit [facility] MEDICINE [address] [place] [address] Love Garcia MD [address] [place], [place] [phone] 07/02/2025 1:00 PM EST Office Visit [facility] OPTOMETRY [address] [place], [place] [phone] Russell, Tammy, OD [address] [place] [address] documented as of this encounter Procedures Procedure Name Priority Date/Time Associated Diagnosis Comments COMPREHENSIVE METABOLIC PANEL Routine 12/03/2023 2:11 PM EDT Chronic pruritus documented in this encounter Results * (ABNORMAL) Comprehensive Metabolic Panel (12/03/2023 2:11 PM EDT) Sodium 133(L) 135 - 145 mmol/L [facility] Potassium 5.0 3.3 - 5.1 mmol/L [facility] Chloride 99 96 - 108 mmol/L [facility] Carbon Dioxide 24 22 - 29 mmol/L [facility] Anion Gap 15 12 - 20 [facility] Urea Nitrogen (BUN) 24(H) 9 - 16 mg/dL [facility] Creatinine, Serum 1.64(H) 0.5 - 1.4 mg/dL [facility] Estimated Glomerular Filt Rate 32 [facility] Comment:NOTE: For -Am erican individuals, multiply the result by 1.210.Chronic Kidney Disease: Estimated GFR < 60 mL/min/1.47n7Fvbyfk Kidney Disease: Estimated GFR < 15 mL/min/1.73m2 Glucose 427(HH) 60 - 115 mg/dL [facility] Comment:Critical value for t est(s): GLUR Results called to and readback by: ESSIE BROCK Person calling:Estuardo:12/03/2023 Time:1633 Calcium 10.4(H) 8.4 - 10.2 mg/dL [facility] Bilirubin, Total 0.5 0.0 - 1.0 mg/dL [facility] Aspartate Amino Transferase 39(H) 5 - 31 U/L [facility] Alanine Aminotransferase 46(H) 0 - 31 U/L [facility] Total Protein 7.9 6.5 - 8.0 g/dL [facility] Albumin Level 3.9 3.5 - 5.0 g/dL [facility] Alkaline Phosphatase 38(L) 39 - 117 U/L [facility] Blood Venous blood specimen / Unknown 12/03/2023 2:11 PM EDT 12/03/2023 4:10 PM EDT us Love Garcia MD LAB BLOOD ORDERABLES Edited Re sult - Final [facility] [address] [place] [address] [phone] documented in this encounter Visit Diagnoses Diagnosis Chronic pruritus- Primary documented in this encounter Additional Health Concerns Assessment Noted Time PHQ-9 Depression Total Score: 16 2 024 3:45 PM EDT documented as of this encounter Care Teams Meal Packer Relationship Specialty Start Date End Date Love Garcia MD [address] [place] [address] PCP - General Family Medicine 09/14/20 documented as of this encounter
--- OUTSIDE RECORDS SUMMARY | 2025-04-28 16:16 | XMS_ITS | Encounter Summary ---
Author Organization [employer] Address [address] [facility] [address]t [place] [address] Care Team Providers Care Network Operations Manager Name Role Phone Love Garcia MD Primary Care Provider [phone] Reason for Visit * Reason Onset Date Comments Reschedule 01/14/2024 Encounter Details Date Type Department Care Team ([facility] st Contact Info) Description 01/14/2024 Telephone [facility] MEDICINE [address] [place], [place] [phone] Love Garcia MD [address] [place], [place] [phone] Reschedule Social History Tobacco Use Types Packs/Day [...] requesting to reschedule 01/13 follow up appointment. Garland Machine Operator attempted tos schedule but no availability. Please contact pt at [phone] documented in this encounter Plan of Treatment Upcoming Encounters Date Type Department Care Team (Late st Contact Info) Description 06/10/2025 3:15 PM EDT Office Visit [facility] MEDICINE [address] [place] [address] Love Garcia MD [address] [place] [address] 07/02/2025 1:00 PM EST Office Visit [facility] OPTOMETRY [address] [place] [address] Russell, Tammy, OD [address] [place] [address] documented as of this encounter Visit Diagnoses Not on filedocumented in this encounter Additional Health Concerns Assessment Noted Time PHQ-9 Depression Total Score: 16 024 3:45 PM EDT documented as of this encounter Care Teams Network Operations Manager Relationship Specialty Start Date End Date Love Garcia MD [address] [place] [address] PCP - General Family Medicine 09/14/20 documented as of this encounter
--- OUTSIDE RECORDS SUMMARY | 2025-04-28 16:16 | XMS_ITS | Encounter Summary ---
Author Organization [employer] Address [address] [facility] [address] [place] [address] Care Team Providers Care Practicing Dermatologist Name Role Phone Love Garcia MD Primary Care Provider [phone] Encounter Details Date Type Department Care Team (Latest Contact Info) Description 04/28/2025 Travel Social History Tobacco Use Types Packs/Day [...] Description 06/10/2025 3:15 PM EDT Office Visit [facility] MEDICINE [address] [place] [address] Love Garcia MD [address] [place] [address] 07/02/2025 1:00 PM EST Office Visit [facility] OPTOMETRY [address] [place] [address] Tammy Wells OD [address] [place] [address] documented as of this encounter Visit Diagnoses Not on filedocumented in this encounter Additional Health Concerns Assessment Noted Time PHQ-9 Depression Total Score: 16 024 3:45 PM EDT documented as of this encounter Care Teams Practicing Dermatologist Relationship Specialty Start Date End Date Love Garcia MD [address] [place] [address] PCP - General Family Medicine 09/14/20 documented as of this encounter
--- OUTSIDE RECORDS SUMMARY | 2025-04-28 16:16 | XMS_ITS | Clinical Summary ---
Author Organization [employer] Address 75 [facility] 7t [place] [address] Care Team Providers Care Adjunct Spanish Instructor Name Role Phone Love Garcia MD Primary Care Provider [phone] Allergies Active Allergy Reactions Criticality Noted Date Comments Penicillin G 03/07/2017 Medications ascorbic acid (Vitamin C) 500 MG tablet take 1 tablet daily with iron 022 Active cetirizine (ZyrTEC) 10 MG tablet take 1 tablet by oral route every day 022 Active Diclofenac Sodium 1 % gel apply 2 gram by topical route 4 times every day to the affected area(s) 022 Active glucose blood (FREESTYLE LITE) test strip USE 1 Each by DIRECTED route 3 times every day 022 Active Multiple Vitamin (Multi-Vitamin) tablet take 1 tablet by oral route every day with food 022 Active pramoxine-calam ine (Calahist) 1-8 % lotion apply at bedtime 022 Active pen needle 32G x 4 mm misc Inject under the skin if needed. Use q Active Super Thin Lancets misc Use 1 lancet by to skin route 3 times every day Active cyclobenzaprine (Flexeril) 5 MG tablet TAKE 1 TABLET BY MOUTH THREE TIMES DAILY FOR 10 DAYS 023 Active Sure Comfort Pen [place] 31G X 5 MM misc USE DIRECTED AT BEDTIME 100 each 11 024 Active Tirzepatide (Mounjaro) 2.5 MG/0.5ML solution auto-injector Inject 2.5 mg under the skin 1 (one) time per week. 2 mL 2 024 Active FREESTYLE LITE test stripIndication s:Type 2 diabetes mellitus with hyperglycemia, with long-term current use of insulin ([facility]) Use to test blood sugar three times daily 100 each 025 2025 Active Lancets miscIndications :Type 2 diabetes mellitus with hyperglycemia, with long-term current use of insulin ([facility]) Use to test blood sugar three times daily 100 each 025 Active Alcohol Swabs 70 % padsIndications :Type 2 diabetes mellitus with hyperglycemia, with long-term current use of insulin ([facility]) Use to test blood sugar three times daily 100 each 025 Active Blood Glucose Monitoring Suppl (FreeStyle [place] Lite) w/Device kit Use to test blood [...] HOURS IF NEEDED FOR WHEEZING 8.5 g 025 Active traZODone (Desyrel) 50 MG tabletIndicatio ns:Primary insomnia TAKE 1 TABLET BY MOUTH EVERY DAY AT BEDTIME 90 tablet 3 025 Active metoprolol tartrate (Lopressor) 50 MG tabletIndicatio ns:Essential hypertension TAKE 1 TABLET BY MOUTH TWICE DAILY WITH 25 MG TABLET WITH MEALS 200 tablet 2 025 Active insulin glargine (Lantus SoloStar) 100 UNIT/ML penIndications: Type 2 diabetes mellitus with hyperglycemia, with long-term current use of insulin ([facility]) Inject 42 Units under the skin at bedtime. 15 mL 025 Active hydroCHLOROthia zide (HYDRODiuril) 25 MG tabletIndicatio ns:Essential hypertension Take 1 tablet (25 mg) by mouth Once per day. 90 tablet 3 025 2025 Active sertraline (Zoloft) 50 MG tabletIndicatio ns:Current moderate episode of major depressive disorder without prior episode (CMS/HCC) Take 1 tablet (50 mg) by mouth Once per day. 90 tablet 3 025 2025 Active empagliflozin (Jardiance) 10 MG Take 1 tablet (10 mg) by mouth Once per day. 90 tablet 025 2025 Active aspirin 81 MG chewable tablet Chew 1 tablet (81 mg) Once per day. 90 tablet 025 2025 Active atorvastatin (Lipitor) 40 MG tablet Take 1 tablet (40 mg) by mouth Once per day. 90 tablet 025 2025 Active omeprazole (PriLOSEC) [address] capsule TAKE 1 CAPSULE BY MOUTH DAILY BEFORE A MEAL 100 capsule Active glipiZIDE (Glucotrol) 10 MG tablet TAKE 1 TABLET BY MOUTH TWICE DAILY BEFORE MEALS 200 tablet Active gabapentin (Neurontin) 300 MG capsule Take 1 capsule (300 mg) by mouth 3 times daily. 300 capsule Active metFORMIN (Glucophage) 1000 MG tablet TAKE 1 TABLET BY MOUTH TWICE DAILY WITH MORNING AND EVENING MEALS 200 tablet Active lisinopril 40 MG tabletIndicatio ns:Essential hypertension TAKE 1 TABLET BY MOUTH DAILY 100 tablet Active metoprolol tartrate (Lopressor) 25 MG tablet TAKE 1 TABLET BY MOUTH TWICE DAILY WITH 50 MG TABLET 180 tablet 3 Active Ferrous Sulfate (iron) 325 (65 Fe) MG tablet TAKE 1 TABLET BY MOUTH EVERY OTHER DAY 45 tablet 3 Active fluticasone furoate (Arnuity Ellipta) 100 MCG/ACT inhalerIndicati ons:Intermitten t asthma without complication, unspecified asthma severity Inhale 1 puff Once per day. Rinse mouth with water after use to reduce aftertaste and incidence of candidiasis. Do not swallow. 1 each 2025 Active ferrous sulfate 325 (65 Fe) MG tablet Take 1 tablet (325 mg) by mouth every other day. 45 tablet 3 024 2024 Discontinued fluticasone furoate (Arnuity Ellipta) 100 MCG/ACT inhaler Inhale 1 puff Once per day. Rinse mouth with water after use to reduce aftertaste and incidence of candidiasis. Do not swallow. 1 each 11 025 2024 Discontinued(R eorder (will not trigger notification to Pharmacy)) Active Problems Problem Noted Date Diagnosed Date Fatigue due to depression 04/28/2025 Assessment & Plan (04/28/2025 3:49 PM EDT): Orders: CBC auto differential; Future Iron And Total Iron Binding Capacity; Future TSH W/Reflex to FT4; Future Intermittent asthma without complication 025 Assessment & Plan (04/28/2025 3:49 PM EDT): Orders: fluticasone furoate (Arnuity Ellipta) 100 MCG/ACT inhaler; Inhale 1 puff Once per day. Rinse mouth with water after use to reduce aftertaste and incidence of candidiasis. Do not swallow. XR Chest 2 Views; Future Chronic night sweats 04/28/2025 Assessment & Plan (04/28/2025 3:49 PM EDT): Orders: XR Chest 2 Views; Future Encounter for screening colonoscopy 08/01/2024 Microcytic anemia 11/14/2023 Assessment & Plan (04/28/2025 3:49 PM EDT): Orders: CBC auto differential; Future Iron And Total Iron Binding Capacity; Future TSH W/Reflex to FT4; Future Assessment & Plan (11/14/2023 9:58 AM EDT): [...] 2 diabetes mellitus 03/07/2017 Assessment & Plan (04/28/2025 3:49 PM EDT): Orders: Hemoglobin A1c; Future Assessment & Plan (11/26/2024 10:56 AM EDT): A1C 10.7 continue Metformin, Glipizide, and Lantus 28units nightly Add SGLT2 for renal protection Will try to see if she qualifies for MH as secondary insurance and then they would [...] try to see if she qualifies for MH as secondary insurance and then they would [...] Encounters Date Type Department Care Team Description 04/28/2025 2:30 PM EDT Office Visit [facility] [address] [place] [address] Rosangela Mcgee NP Microcytic anemia (Primary Dx); Fatigue due to depression; Intermittent asthma without complication, unspecified asthma severity; Type 2 diabetes mellitus with hyperglycemia, with long-term current use of insulin ([facility]); Chronic night sweats 04/28/2025 Travel 04/24/2025 Telephone [facility] [address] [place], [place] [phone] Love Garcia MD Nurse Triage 04/24/2025 Refill [facility] [address] [place], [place] [phone] Love Garcia MD 02/08/2025 Refill [facility] [address] [place], [place] [phone] Love Garcia MD from Last 3 Months Immunizations Immunization Administration Dates Next Due Influenza injectable quadriv [...] Mass Index 30.95 04/28/2025 2:36 PM EDT Plan of Treatment Upcoming Encounters Date Type Department Care Team (Late st Contact Info) Description 06/10/2025 3:15 PM EDT Office Visit [facility] [address] [place] [address] Love Garcia MD [address] [place] [address] 07/02/2025 1:00 PM EST Office Visit [facility] [address] [place], [place] [phone] Tammy Wells, AICHA [address] [place] [address] Health Maintenance Due Date Last Done Comments CT Colonography 1962 FIT DNA/Cologuard 1962 FIT 1962 FOBT 1962 Sigmoidoscopy 1962 Disability Screening 1962 Diabetes: Foot Exam 1972 Hepatitis A Vaccines (1 of 2 - Risk 2-dose series) 1981 Pap Smear 11/14/1983 Cervical Cancer Screening 1992 HPV/Cotest 1992 Colonoscopy 08/08/2018 08/08/2017 Zoster Vaccines (2 of 2) 09/03/2018 07/09/2018 Hepatitis B Vaccines (1 of 3 - Risk 3-dose series) 2022 RSV Patients and Patients Aged 60 years or older (1 - Risk 60-74 years 1-dose series) 2022 Mammogram 02/03/2023 02/03/2022, 02/03/2022 Depression Monitoring 05/14/2024 11/12/2023, 024 SDOH Screening 11/11/2024 11/12/2023 Diabetes: Hemoglobin A1C 02/23/2025 025, 08/01/2024, 11/12/2023, Additional history exists COVID-19 Vaccine ( season) 2025 06/16/2022, 01/02/2022, 01/02/2022, Additional history exists Influenza Vaccine (#1) 2025 , 06/01/2022, 06/04/2020, Additional history exists Diabetes: Urine Protein Screening 11/24/2025 11/24/2024, 11/12/2023, 01/02/2022, Additional history exists Lipid Panel 11/24/2025 11/24/2024, 10/25, 01/02/2022 Alcohol/Substance Use Screening 11/26/2025 11/26/2024 Colorectal Cancer Screening 12/08/2025 Postponed from 1962 (Patient Refused) Eye Exam 12/30/2025 12/30/2024, 0501/2025, 12/30/2024, Additional history exists Tobacco Screening 01/23/2026 01/23/2025 DTaP/Tdap/Td Vaccines (2 - Td or Tdap) 05/02/2027 05/02/2017 Pneumococcal Vaccine: 50+ Years Completed 06/16/2022, 05/02/2017 HIV Screening Completed 11/24/2024 Hepatitis C Screening Completed 11/24/2024, 022 HIB Vaccines Aged Out No longer eligi ble based on patient's age to complete this topic HPV Vaccines Aged Out No longer eligi ble based on patient's age to complete this topic IPV Vaccines Aged Out No longer eligi ble based on patient's age to complete this topic Meningococcal B Vaccine Aged Out No l onger eligible based on patient's age to complete [...] Procedure Name Priority Date/Time Associated Diagnosis Comments HEPATITIS C AB W/REFL TO HCV RNA, [...] hyperglycemia, with long-term current use of insulin ([facility]) POCT GLYCATED HEMOGLOBIN, TOTAL Routine 11/24/2024 3:51 PM EDT Type 2 diabetes mellitus with hyperglycemia, with long-term current use of insulin ([facility]) MAMMOGRAM GENERIC Routine 02/03/2022 1:4 2 PM EDT HM COLONOSCOPY Routine 08/08/2017 1:25 PM EST from Last 3 Months or Most Recently Relevant to Health Maintenance Results * (ABNORMAL) Albumin, Random Urine W/Creatinine (11/24/2024 4:24 PM EDT) Creatinine, Urine 95.66 mg/dL [facility] Microalbumin Urine 45.0 mg/L [facility] Microalbum Creatinine Ratio Ur 47.0(H) <30 ug/mg cr [facility] Comment:Albumin/Creatinine R atio Reference Ranges: Normal: < 30 ug/mg creatinine Microalbuminuria: 30 - 300 ug/mg creatinineClinical Albuminuria: > 300 ug/mg creatinine Urine (Urine, Random) 11/24/2024 4:24 PM EDT 11/24/2024 5:59 PM EDT Love Garcia MD LAB URINE ORDERABLES Final Res ult Performing Organization Address [facility]/ZIP Co de Phone Number [facility] [address] [place] [phone] * Hepatitis C Antibody with Reflex to HCV, RNA, Quantitative, Real-Time PCR (11/24/2024 4:24 PM EDT) Pathologist [facility] Hepatitis C Antibody Nonreactive Nonreactive [facility] Comment:Antibodies to HCV no t detected; does not exclude early acuteHCV infection. Blood Venous blood specimen / Unknown 11/24/2024 4:24 PM EDT 11/24/2024 5:57 PM EDT Love Garcia MD LAB BLOOD ORDERABLES Final Res ult Performing Organization Address [facility] Co de Phone Number [facility] [address] [place] [phone] * HIV-1/2 Antigen and Antibodies, Fourth Generation, with Reflexes (11/24/2024 4:24 PM EDT) Pathologist [facility] HIV AB/AG Nonreactive Nonreactive [facility] Comment:HIV-1 p24 Ag and/or HIV-1/HIV-2 Ab not detected.A test result that is nonreactive does not exclude thepossibility of exposure to or infection with HIV-1 and/orHIV-2. Nonreactive results in this assay for individualswith prior exposure to HIV-1 and/or HIV-2 may be due toantigen and antibody levels that are below the limit ofdetection of this assay.The [email or web address] HIV Ag/Ab Combo assay result andsupplemental assay results should be interpreted inconjunction with the patient's clinical presentation,history and other laboratory results. If the results areinconsistent with clinical evidence, additional testing issuggested to confirm the result. Blood Venous blood specimen / Unknown 11/24/2024 4:24 PM EDT 11/24/2024 5:57 PM EDT us Love Garcia MD LAB BLOOD ORDERABLES Final Res ult [facility] [address] [place] [phone] * (ABNORMAL) Lipid Panel, Standard (11/24/2024 4:24 PM EDT) Triglycerides 151(H) <150 mg/dL [facility] Comment:Desirable Triglyceri de: less than 150 mg/dLBorderline High Triglyceride 150-199 mg/dLHigh Triglyceride: 200-499 mg/dLVery High Triglyceride: greater than or equal to 5OO mg/dL Cholesterol 164 <200 mg/dL [facility] Comment:Desirable Cholestero l: less than 200 mg/dLBorderline High Cholesterol: 200-239 mg/dLHigh Cholesterol: greater than 239 mg/dL LDL Cholesterol Calculated 101(H) <100 mg/dL [facility] Comment:Desirable LDL: less than 100 mg/dLNear Optimal/Above Optimal LDL: 110- 129 mg/dLBorderline High LDL: 130-159 mg/dLHigh LDL: 160-189 mg/dLVery High LDL: greater than or equal to 190 mg/dL HDL Cholesterol 33(L) >40 mg/dL [facility] Comment:Desirable HDL: great er than 40 mg/dL Note: This HDL assay may give artificially low results in patients with liver disease. Blood Venous blood specimen / Unknown 11/24/2024 4:24 PM EDT 11/24/2024 5:57 PM EDT Result [facility] Love Garcia MD LAB BLOOD ORDERABLES Final Res ult [facility] [address] [place] [phone] * (ABNORMAL) POCT HGB A1C (11/24/2024 3:51 PM EDT) Hemoglobin A1C 10.7(A) 4.0 - 6.0 % Blood 11/24/2024 3:51 PM EDT Result [facility] Love Garcia MD POINT OF CARE TEST ENTER/EDIT ORDERABLES Final Result * Mammography Report 1 (02/03/2022 1:42 PM EDT) Anatomical Region Laterality Modality Breast Bilateral Mammography 02/03/2022 1:42 PM EDT Narrative 03/01/2022 4:14 PM EDT Refer to the Notes tab for result details [facility] Procedure: Mammography Report 1 Procedure Note Provider, MD Katie - 11/19/2022 Refer to the Notes tab for result details [facility] Procedure: Mammography Report 1 Result [facility] Love Garcia MD IMG BI PROCEDURES Final Result * Colonoscopy (08/08/2017 1:25 PM EST) Katie Lugo MD HEALTH MAINTENANCE Final Result from Last 3 Months or Most Recently Relevant to Health Maintenance Insurance [facility] MEDICARE ADVANTAGE HMO Care Teams Adjunct Spanish Instructor Relationship Specialty Start Date End Date Love Garcia MD [address] [place] [phone] PCP - General Family Medicine 09/14/20
--- OUTSIDE RECORDS SUMMARY | 2025-04-28 16:16 | XMS_ITS | Encounter Summary ---
Author Organization [employer] Address [address] [place] [address] [address] [place] [address] Care Team Providers Care Multifocal Lens Assembler Name Role Phone Love Garcia MD Primary Care Provider [phone] Reason for Visit * Reason Comments Med Refill Encounter Details Date Type Department Care Team (Late Contact Info) Description 02/06/2023 Refill [facility] [address] [place] [address] [phone] Love Garcia MD [address] [place] [address] [phone] Social History Tobacco Use Types Packs/Day Years [...] 06/10/2025 3:15 PM EDT Office Visit [facility] [address] [place] [address], [place] [address] Love Garcia MD [address] [place], [place] [phone] 07/02/2025 1:00 PM EST Office Visit [facility] OPT[facility] [address] [place], [place] [phone] Tammy Wells, OD [address] [place], [place] [phone] documented as of this encounter Visit Diagnoses Not on filedocumented in this encounter Additional Health Concerns Assessment Noted Time PHQ-9 Depression Total Score: 14 023 11:44 AM EST documented as of this encounter Care Teams Multifocal Lens Assembler Relationship Specialty Start Date End Date Love Garcia MD [address] [place], [place] [phone] PCP - General Family Medicine 09/14/20 documented as of this encounter
--- OUTSIDE RECORDS SUMMARY | 2025-04-28 16:16 | XMS_ITS | Encounter Summary ---
Author Organization [employer] Address 75 [facility] 7 [place] [address] Care Team Providers Care Apartment Maintenance Supervisor Name Role Phone Love Garcia MD Primary Care Provider Reason for Visit * Reason Onset Date Comments Nurse Triage 04/24/2025 Encounter Details Date Type Department Care Team ([facility] st Contact Info) Description 04/24/2025 Telephone [facility] [address] [place], [place] [phone] Love Garcia MD [address] [place], [place] [phone] Nurse Triage Social History Tobacco Use Types [...] the past 12 months, has t he [employer], gas, oil or water [employer] threatened to shut off services in your [...] Telephone Encounter - Lily Blancas RN - 04/24/2025 2:34 PM EDT called pt to triage, spoke to pt. pt states has been on iron medication in the past for anemia and not currently taking. pt states was better for a while but is now back chewing on ice, having fatigue, and worsening hair loss. pt thinks the anemia is getting worse and wants to have it checked again. given appt with blue team provider Sunday at 2:30 for exam. pt understands and agrees with plan. insurance verified. pt also has scheduled appt with PCP in May and will keep that appt. Protocol Used: Hair Loss (Pediatric) Protocol-Based Disposition: See in Office or Video Visit within 2 Weeks Video visit offer not recorded Positive Triage Question: * Hair loss is a chronic problem * All higher-acuity triage questions were negative Care Advice Discussed: * Reasons To Call Back - You have other questions or concerns * Telephone Encounter - Lambert Bolden - 04/24/2025 1:40 PM EDT Symptom: Hair Loss due to low iron. Eating way to much ice. Outcome: Schedule an appointment to be seen within 3 days Reason: This is the only possible outcome for this symptom The caller accepted this outcome. Contact pt at [phone] documented in this encounter Plan of Treatment Upcoming Encounters Date Type Department Care Team (Late st Contact Info) Description 06/10/2025 3:15 PM EDT Office Visit [facility] [address] [place] [address] Love Garcia MD [address] [place] [address] 07/02/2025 1:00 PM EST Office Visit [facility] OPTOMETRY [address] [place] [address] Russell, Tammy, OD [address] [place] [address] documented as of this encounter Visit Diagnoses Not on filedocumented in this encounter Additional Health Concerns Assessment Noted Time PHQ-9 Depression Total Score: 16 11/11/2 024 3:45 PM EDT documented as of this encounter Care Teams Apartment Maintenance Supervisor Relationship Specialty Start Date End Date Love Garcia MD [address] [place] [address] PCP - General Family Medicine 09/14/20 documented as of this encounter
--- OUTSIDE RECORDS SUMMARY | 2025-04-28 16:16 | XMS_ITS | Encounter Summary ---
Author Organization [employer] Address 75 [facility] 7t [place] [address] Care Team Providers Care Ranch Hand Supervisor Name Role Phone Love Garcia MD Primary Care Provider [phone] Encounter Details Date Type Department Care Team ([facility] st Contact Info) Description 06/05/2024 Orders Only [facility] [address] [place], [place] [phone] Love Garcia MD [address] [place], [place] [phone] Social History Tobacco Use Types Packs/Day Years [...] Description 06/10/2025 3:15 PM EDT Office Visit [facility] [address] [place] [address] Love Garcia MD [address] [place] [address] 07/02/2025 1:00 PM EST Office Visit [facility] [address] [place] [address] Russell, Tammy, OD [address] [place] [address] documented as of this encounter Visit Diagnoses Not on filedocumented in this encounter Additional Health Concerns Assessment Noted Time PHQ-9 Depression Total Score: 16 024 3:45 PM EDT documented as of this encounter Care Teams Ranch Hand Supervisor Relationship Specialty Start Date End Date Love Garcia MD [address] [place] [phone] PCP - General Family Medicine 09/14/20 documented as of this encounter
--- OUTSIDE RECORDS SUMMARY | 2025-04-28 16:16 | XMS_ITS | Encounter Summary ---
Author Organization [employer] Address 75 [facility] 7t [place] [address] Care Team Providers Care Tiller Worker Name Role Phone Love Garcia MD Primary Care Provider [phone] Encounter Details Date Type Department Care Team (Late st Contact Info) Description 01/31/2024 Abstract [facility] [address] [place], [place] [phone] Love Garcia MD [address] [place], [place] [phone] Social History Tobacco Use Types Packs/Day Years [...] Description 06/10/2025 3:15 PM EDT Office Visit [facility] [address] [place] [address] Love Garcia MD [address] [place] [address] 07/02/2025 1:00 PM EST Office Visit [facility] OPTOMETRY [address] [place] [address] Russell, Tammy, OD [address] [place] [address] documented as of this encounter Visit Diagnoses Not on filedocumented in this encounter Additional Health Concerns Assessment Noted Time PHQ-9 Depression Total Score: 16 024 3:45 PM EDT documented as of this encounter Care Teams Tiller Worker Relationship Specialty Start Date End Date Love Garcia MD [address] [place] [phone] PCP - General Family Medicine 09/14/20 documented as of this encounter
[2025-04-28 16:21] LABS: Hematocrit 31.5 % (37.0-47.0); Hemoglobin 10.0 g/dl (12.0-16.0); Imm Gran Abs Auto 0.03 X10*3/uL (0.00-0.03); Imm Gran Pct Auto 0.5 % (0.0-0.4); Lymphocytes Absolute Auto 1.0 X10*3/uL (1.2-4.9); Mean Corpuscular HGB Conc 31.7 g/dl (31.0-35.0); Mean Corpuscular Hemoglobin 25.3 pg (27.0-33.0); Mean Corpuscular Volume 79.7 fL (80.0-98.0); NRBC Abs Auto 0.000 X10*3/uL (0.0-0.012); NRBC Pct Auto 0.0 /100WBC (0.0-0.2); Platelet Count 172 X10*3/uL (160-400); Red Blood Count 3.95 X10*6/uL (4.20-5.50); White Blood Count 6.0 X10*3/uL (4.8-10.8)
[2025-04-28 16:30] LABS: Hemoglobin A1C 234.6337 umol/L; Total Hemoglobin (HGBA1C) 2651.5183 umol/L
[2025-04-28 16:54] LABS: Iron 47 mcg/dL (30-160); Percent Iron Saturation 13 % (15-50); Total Iron Binding Capacity 350 mcg/dL (228-428); Unsaturated Iron Binding 303 ug/dL
== END 2025-04-28 15:04 | disposition home or self-care (01) ==
LOC: HO.HHCL 15:03
PROVIDERS: PCP General Practice; Referring Provider Nurse Practitioner Family; Visit Provider Nurse Practitioner Family
DX: J45.20 Mild intermittent asthma, uncomplicated (principal); R61 Generalized hyperhidrosis; R05.3 Chronic cough; D50.9 Iron deficiency anemia, unspecified; F32.A Depression, unspecified; R53.83 Other fatigue; E11.65 Type 2 diabetes mellitus with hyperglycemia; Z79.4 Long term (current) use of insulin
CPT/HCPCS: 36415; 71046; 83036; 83540; 84443; 85025

== ENCOUNTER → 2025-04-28 15:47 | Outpatient (BNV) | payer MEDICARE, SELFPAY | PROVIDERS: PCP General Practice; Referring Provider Nurse Practitioner Family; Visit Provider Radiology Diagnostic Radiology | DX: J45.909 Unspecified asthma, uncomplicated (principal); D64.9 Anemia, unspecified | CPT/HCPCS: 71046 ==

== ENCOUNTER 2025-07-31 13:15 | Outpatient (REF) | payer MEDICARE, SELFPAY ==
[2025-07-31 16:09] LABS: MANUAL DIFF FLAG NO
[2025-07-31 16:17] LABS: Hematocrit 34.4 % (37.0-47.0); Hemoglobin 11.0 g/dl (12.0-16.0); Imm Gran Abs Auto 0.03 X10*3/uL (0.00-0.03); Imm Gran Pct Auto 0.5 % (0.0-0.4); Lymphocytes Absolute Auto 0.6 X10*3/uL (1.2-4.9); Mean Corpuscular HGB Conc 32.0 g/dl (31.0-35.0); Mean Corpuscular Hemoglobin 27.0 pg (27.0-33.0); Mean Corpuscular Volume 84.3 fL (80.0-98.0); NRBC Abs Auto 0.000 X10*3/uL (0.0-0.012); NRBC Pct Auto 0.0 /100WBC (0.0-0.2); Platelet Count 137 X10*3/uL (160-400); Red Blood Count 4.08 X10*6/uL (4.20-5.50); White Blood Count 5.8 X10*3/uL (4.8-10.8)
[2025-07-31 17:20] LABS: Microalbum/Creatinine Ratio Ur 20.3 ug/mg cr (<30)
--- OUTSIDE RECORDS SUMMARY | 2025-07-31 17:22 | XMS_ITS | Encounter Summary ---
Author Organization [employer] Address 75 [facility] [address]t [place] [address] Care Team Providers Care Record Changer Name Role Phone Love Garcia MD Primary Care Provider [phone] Daphnie Falk PharmD Unavailable Encounter Details Date Type Department Care Team ([facility] st Contact Info) Description 11/03/2022 Orders Only [facility] [address] [place], [place] [phone] Love Garcia MD [address] [place], [place] [phone] Type 2 diabetes mellitus with hyperglycemia, with long-term current use of insulin ([facility]) (Primary Dx) Social History Tobacco Use Types [...] Care Team (Late st Contact Info) Description 09/08/2025 2:30 PM EST Medication Management [facility] [address] [place] [address] Daphnie Falk PharmD [address] [place] [address] documented as of this encounter Visit Diagnoses Diagnosis Type 2 diabetes mellitus with hyperglycemia, with long-term current use of insulin (HCC)- Primary documented in this encounter Additional Health Concerns Assessment Noted Time PHQ-9 Depression Total Score: 14 023 11:44 AM EST documented as of this encounter Care Teams Record Changer Relationship Specialty Start Date End Date Love Garcia MD [address] [place] [address] PCP - General Family Medicine 09/14/20 Daphnie Falk PharmD [address] [place] [phone] Pharmacist Pharmacy 07/01/25 documented as of this encounter
--- OUTSIDE RECORDS SUMMARY | 2025-07-31 17:22 | XMS_ITS | Clinical Summary ---
Author Organization [employer] Address [address] [place] [address] [address] [place] [address] Care Team Providers Care Fruit Peeler Name Role Phone Love Garcia MD Primary Care Provider [phone] Daphnie Falk PharmD Unavailable [phone] Allergies Active Allergy Reactions Criticality Noted Date Comments Penicillin G Itching,Dizziness 03/07/2017 Medications pen needle 32G x 4 mm misc Inject under the skin if needed. Use qhs Active Super Thin Lancets misc Use 1 lancet by to skin route 3 times every day Active FREESTYLE LITE test stripIndications :Type 2 diabetes mellitus with hyperglycemia, with long-term current use of insulin ([facility]) Use to test blood sugar three times daily 100 each 12 5 026 Active Lancets miscIndications: Type 2 diabetes mellitus with hyperglycemia, with long-term current use of insulin ([facility]) Use to test blood sugar three times daily 100 each 5 Active Alcohol Swabs 70 % padsIndications: Type 2 diabetes mellitus with hyperglycemia, with long-term current use of insulin ([facility]) Use to test blood sugar three times daily 100 each 5 Active Blood Glucose Monitoring Suppl (FreeStyle Colbert Lite) w/Device kit Use to test blood sugar three times daily 1 kit 5 Active albuterol (2.5 MG/3ML) 0.083% nebulizer solutionIndicati ons:Cough, unspecified type,Asthma with acute exacerbation, unspecified asthma severity, unspecified whether persistent,Lung crackles Take 3 mL (2.5 mg) by nebulization every 6 (six) hours if needed for wheezing. 75 mL 11 5 /25/2 026 Active albuterol 108 (90 Base) MCG/ACT inhalerIndicatio ns:Asthma with acute exacerbation, unspecified asthma severity, unspecified whether persistent INHALE 2 PUFFS BY MOUTH EVERY 6 HOURS IF NEEDED FOR WHEEZING 8.5 g Active metoprolol tartrate (Lopressor) 50 MG tabletIndication s:Essential hypertension TAKE 1 TABLET BY MOUTH TWICE DAILY WITH 25 MG TABLET WITH MEALS 200 tablet 2 5 Active hydroCHLOROthiaz deo (HYDRODiuril) 25 MG tabletIndication s:Essential hypertension Take 1 tablet (25 mg) by mouth Once per day. 90 tablet 5 Active aspirin 81 MG chewable tablet Chew 1 tablet (81 mg) Once per day. 90 tablet 5 Active atorvastatin (Lipitor) 40 MG tablet Take 1 tablet (40 mg) by mouth Once per day. 90 tablet 5 Active Additional Information Patient not taking.Reason: Side effects, Reported on 07/01/2025 omeprazole (PriLOSEC) [address] capsule TAKE 1 CAPSULE BY MOUTH DAILY BEFORE A MEAL 100 capsule 5 Active glipiZIDE (Glucotrol) 10 MG tablet TAKE 1 TABLET BY MOUTH TWICE DAILY BEFORE MEALS 200 tablet Active gabapentin (Neurontin) 300 MG capsule Take 1 capsule (300 mg) by mouth 3 times daily. 300 capsule Active metFORMIN (Glucophage) 1000 MG tablet TAKE 1 TABLET BY MOUTH TWICE DAILY WITH MORNING AND EVENING MEALS 200 tablet 5 Active lisinopril 40 MG tabletIndication s:Essential hypertension TAKE 1 TABLET BY MOUTH DAILY 100 tablet 5 Active metoprolol tartrate (Lopressor) 25 MG tablet TAKE 1 TABLET BY MOUTH TWICE DAILY WITH 50 MG TABLET 180 tablet 5 Active Ferrous Sulfate (iron) 325 (65 Fe) MG tablet Take 1 tablet (325 mg) by mouth every other day. 45 tablet 5 Active insulin pen needle (Sure Comfort Pen [place]) 31G x 5 mm misc Use as instructed at bedtime 100 each 11 10/10/202 5 Active Multiple Vitamin (Multi-Vitamin) tablet Take 1 tablet by mouth Once per day. 90 tablet 3 5 Active Diclofenac Sodium 1 % gel Apply 2 g topically Once per day. 100 g 3 5 Active cyclobenzaprine (Flexeril) 5 MG tablet Take 1 tablet (5 mg) by mouth at bedtime. 30 tablet 5 Active sertraline (Zoloft) 100 MG tablet Take 1 tablet (100 mg) by mouth Once per day. 90 tablet 3 5 026 Active insulin glargine (Lantus SoloStar) 100 UNIT/ML penIndications:T ype 2 diabetes mellitus with hyperglycemia, with long-term current use of insulin ([facility]) Inject 50 Units under the skin at bedtime. 15 mL 11 5 Active linaGLIPtin (Tradjenta) 5 MG tablet Take 1 tablet (5 mg) by mouth Once per day. 90 tablet 3 5 026 Active Continuous Glucose Actimize Architect (FreeStyle Michelle 3 [place]) deviceIndication s:Type 2 diabetes mellitus with hyperglycemia, with long-term current use of insulin ([facility]) 1 each Once per day. Use as directed for CGM 1 each 5 Active Continuous Glucose Sensor (FreeStyle Michelle 3 Plus Sensor) miscIndications: Type 2 diabetes mellitus with hyperglycemia, with long-term current use of insulin ([facility]) Apply 1 every 15 days as directed for CGM 2 each 07/31/2025 1:17 PM EST 5 Active glucose blood (FreeStyle Precision Durga Test) test stripIndications :Type 2 diabetes mellitus with hyperglycemia, with long-term current use of insulin ([facility]) Use to test blood sugar 2 times daily in case of CGM failure or extremes of BG 50 each 11 5 Active Active Problems Problem Noted Date Diagnosed Date Moderate persistent asthma without complication 04/29/2025 Fatigue due to depression 04/28/2025 Assessment & Plan (04/28/2025 3:49 PM EDT): Orders: CBC auto differential; Future Iron And Total Iron Binding Capacity; Future TSH W/Reflex to FT4; Future Chronic night sweats 04/28/2025 Assessment & Plan (04/28/2025 3:49 PM EDT): Orders: XR Chest 2 Views; Future Iron deficiency anemia 04/28/2025 Encounter for screening colonoscopy 08/01/2024 Hair loss 11/14/2023 Muscle pain, myofascial 10/23/2022 Assessment & Plan (10/23/2022 5:01 AM EST): Exam consistent with myofascial pain Linked to stress/family issues and discussed this connection Trial of muscle relaxer, Flexeril 5mg up to three times daily Gentle massage and exercise Find ways to vent stress Neck mass 08/10/2022 Assessment & Plan (06/17/2025 9:53 AM EDT): Parotidis, improved in terms of swelling and pain after 5 day course of azithromycin. Will continue to monitor her symptoms and proceed with imaging if it reoccurs Assessment & Plan (08/10/2022 2:27 PM EST): [...] of major depressive disorder without prior episode ([facility]) 03/07/2017 Assessment & Plan (10/23/2022 5:00 AM [...] Problem Noted Date Diagnosed Date Resolved Date Intermittent asthma without complication 04/28/2025 06/12/2025 Assessment & Plan (04/28/2025 3:49 PM EDT): Orders: fluticasone furoate (Arnuity Ellipta) 100 MCG/ACT inhaler; Inhale 1 puff Once per day. Rinse mouth with water after use to reduce aftertaste and incidence of candidiasis. Do not swallow. XR Chest 2 Views; Future Microcytic anemia 11/14/2023 06/12/2025 Assessment & Plan (04/28/2025 3:49 PM EDT): Orders: CBC auto differential; Future Iron And Total Iron Binding Capacity; Future TSH W/Reflex to FT4; Future Assessment & Plan (11/14/2023 9:58 AM EDT): Continue iron supplementation Hg 9.7 today with MCV 77 Hospital discharge follow-up 11/14/2023 06/12/2025 Assessment & Plan (11/14/2023 9:57 AM EDT): F/u with GI in February 2024 Continue iron supplement Alcoholic hepatitis 10/24/2017 11/27/19 25 Drug-induced mood disorder (CMS/HCC) 10/12/2017 11/26/2024 Alcohol consumption binge drinking 05/02/2017 08/03/2024 Joint derangement 03/07/2017 08/03/2024 Left-sided headache 03/07/2017 08/03/20 24 Encounters Date Type Department Care Team Description 07/31/2025 Orders Only [facility] [address] [facility] [place] [address] Love Garcia MD 07/31/2025 Travel 07/07/2025 2:00 PM EST Clinical Support [facility] [address] [facility] [place] [address] Margareth Chatman RN Type 2 diabetes mellitus with hyperglycemia, with long-term current use of insulin (HCC) 07/07/2025 Travel 07/02/2025 1:00 PM EST Office Visit [facility] [address] [place] [address] Tammy Wells, OD 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 (HCC) (Primary Dx); Moderate nonproliferative diabetic retinopathy of left eye without macular edema associated with type 2 diabetes mellitus (HCC); Epiretinal membrane (ERM) of right eye; Pseudophakia of both eyes 07/02/2025 Travel 07/02/2025 Telephone [facility] [address] [facility] [place] [address] Daphnie Falk, KeciaD Prior Authorization 07/02/2025 Telephone [facility] [place] [address] Love Garcia MD CGM appt 07/01/2025 Travel 06/17/2025 10:00 AM EDT Telemedicine [facility] [address] [facility] [place] [address] Love Garcia MD Type 2 diabetes mellitus with hyperglycemia, with long-term current use of insulin (HCC) (Primary Dx); Neck mass 06/17/2025 Travel 06/16/2025 Telephone [facility] [address] [facility] [place] [address] Love Garcia MD R/S appt 06/15/2025 Telephone [facility] [address] [place] [address] Love Garcia MD Chart Prep 06/15/2025 Orders Only [facility] [place] [address] Love Garcia MD Type 2 diabetes mellitus with hyperglycemia, with long-term current use of insulin (HCC) 06/12/2025 Telephone [facility] [address] [place] [phone] Love Garcia MD Medication Question 06/11/2025 Telephone [facility] [address] [place] [address] Love Garcia MD 06/10/2025 3:15 PM EDT Office Visit [facility] [address] [place] [phone] Love Garcia MD Parotitis (Primary Dx); Encounter for immunization; Chronic painful diabetic neuropathy (HCC); Current moderate episode of major depressive disorder without prior episode (CMS/HCC) (HCC); Fatigue due to depression; Iron deficiency anemia secondary to inadequate dietary iron intake; Encounter for screening colonoscopy; Tubular adenoma of colon; Essential hypertension; Type 2 diabetes mellitus with hyperglycemia, with long-term current use of insulin ([facility]) 06/10/2025 Travel 06/05/2025 Refill [facility] [address] [place] [address] Love Garcia MD from Last 3 Months Immunizations Immunization Administration Dates Next Due HepB-CpG 07/01/2025 Influenza injectable quadriv alent preservative free 06/01/2022,06/04/2020,06/06/2019,04/28,05/19/2015 Influenza, seasonal, injecta ble, preservative free 06/10/2025,08/01/2024,04/28/2017 Pfizer Covid-19 Vaccine 12+ 07/01/2025,0 01/02/2022,03/23/2021,03/03 Pfizer Covid-19 Vaccine 12+ Bivalent 06/16/2022 Pfizer [...] Types Packs/Day Years Used Date Smoking Tobacco: Former Cigarettes Smokeless Tobacco: Never Tobacco Cessation:Counseling Given: Not Answered Comments:1 or 2 cigarettes [...] Date Recorded Patient Health Questionnaire-9 Score 16 06/10/2025 Patient Health Questionnaire-9 Score 16 06/10/2025 Last PHQ-9: Questionnaire Data Not on file 1 Housing Stability Answer Date Recorded What is [...] the past 12 months, has t he [employer], [employer], oil or water [employer] threatened to shut off services in your home? No 11/12/2023 Depression Answer Date Recorded Patient Health Questionnaire-2 Score 3 06/10/2025 Comments Unknown Sex and Gender Information Value Date Recorded Sex Assigned at Female 06/26/2022 10:31 AM EDT Legal Sex Female 10:31 AM EDT Gender Identity Female 06/26/2022 10:31 AM EDT Sexual Orientation Straight 10/20/2022 11 :41 AM EST Last Filed Vital Signs Vital Sign Reading Time Taken Comments Blood Pressure 128/82 06/10/2025 3:22 PM EDT Pulse 74 06/10/2025 3:22 PM EDT Temperature 35.7 C (96.2 F) 06/10/2025 3:22 PM EDT Respiratory Rate 15 06/10/2025 3:22 PM EDT Oxygen Saturation 99% 06/10/2025 3:22 PM EDT Inhaled Oxygen Concentration - - Weight 75.6 kg (166 lb 9.6 oz) 06/10/2025 3:22 P M EDT Height 157.5 cm (5' 2 ) 06/10/2025 3:22 PM EDT Body Mass Index 30.47 06/10/2025 3:22 PM EDT Plan of Treatment Upcoming Encounters Date Type Department Care Team (Late st Contact Info) Description 09/08/2025 2:30 PM EST Medication Management [facility] [address] [place] [address] GuyiaDaphnie, PharmD [address] [place] [address] Health Maintenance Due Date Last Done Comments CT Colonography 1962 FIT DNA/Cologuard 1962 FIT 1962 FOBT 1962 Sigmoidoscopy 1962 Disability Screening 1962 Diabetes: Foot Exam 1972 Hepatitis A Vaccines (1 of 2 - Risk 2-dose series) 1981 Pap Smear 11/14/1983 Cervical Cancer Screening 1992 HPV/Cotest 1992 RSV Patients and Patients Aged 60 years or older (1 - Risk 50-74 years 1-dose series) 2012 Colonoscopy 08/08/2018 08/08/2017 Zoster Vaccines (2 of 2) 09/03/2018 07/09/2018 Mammogram 02/03/2023 02/03/2022, 02/03/2022 SDOH Screening 11/11/2024 11/12/2023 Hepatitis B Vaccines (2 of 2 - CpG risk 2-dose series) 07/29/2025 07/01/2025 Diabetes: Hemoglobin A1C 10/29/2025 025, 04/28/2025, 11/24/2024, Additional history exists Diabetes: Urine Protein Screening 11/24/2025 07/31/2025, 11/24/2024, 11/12/2023, Additional history exists Lipid Panel 11/24/2025 11/24/2024, 10/25, 01/02/2022 Colorectal Cancer Screening 12/08/2025 Postponed from 1962 (Patient Refused) Depression Monitoring 12/09/2025 06/10/2025, 025 Alcohol/Substance Use Screening 06/17/2026 06/17/2025 Eye Exam 07/02/2026 07/02/2025, 11/0 01/2025, 07/02/2025, Additional history exists Tobacco Screening 07/17/2026 07/17/2025 DTaP/Tdap/Td Vaccines (2 - Td or Tdap) 05/02/2027 05/02/2017 Pneumococcal Vaccine: 50+ Years Completed 06/16/2022, 05/02/2017 HIV Screening Completed 11/24/2024 Hepatitis C Screening Completed 11/24/2024, 022 Influenza Vaccine Completed 06/10/2025, , 06/01/2022, Additional history exists COVID-19 Vaccine Completed 07/01/2025, , 01/02/2022, Additional history exists HIB Vaccines Aged Out [...] on patient's age to complete this topic Goals Goal Patient Goal Type Associated Problems Recent Progress Patient-Stated? Author Help patients manage their type 2 diabetes Care Plan Help patients manage their type 2 diabetes No Russell, Tammy, OD Weekly blood pressure task Care Plan Weekly blood pressure task No Russell, Tammy, OD Help patients manage their type 2 diabetes Care Plan Help patients manage their type 2 diabetes No Russell, Tammy, OD Patient has diabetic eye disease Care Plan Patient has diabetic eye disease No Russell, Tammy, OD Help patients manage their type 2 diabetes Care Plan Help patients manage their type 2 diabetes No Russell, Tammy, OD Patient has chronic kidney disease Care Plan Patient has chronic kidney disease No Russell, Tammy, OD Help patients manage their type 2 diabetes Care Plan Help patients manage their type 2 diabetes No Russell, Tammy, OD Patient has diabetic neuropathy Care Plan Patient has diabetic neuropathy No Russell, Tammy, OD Weekly blood pressure task Care Plan Weekly blood pressure task No Russell, Tammy, OD Weekly blood pressure task Care Plan Weekly blood pressure task No Russell, Tammy, OD Weekly blood pressure task Care Plan Weekly blood pressure task No Russell, Tammy, OD Patient has diabetic eye disease Care Plan Patient has diabetic eye disease No Russell, Tammy, OD Patient has diabetic eye disease Care Plan Patient has diabetic eye disease No Russell, Tammy, OD Patient has diabetic eye disease Care Plan Patient has diabetic eye disease No Russell, Tammy, OD Patient has chronic kidney disease Care Plan Patient has chronic kidney disease No Russell, Tammy, OD Patient has chronic kidney disease Care Plan Patient has chronic kidney disease No Russell, Tammy, OD Patient has chronic kidney disease Care Plan Patient has chronic kidney disease No Russell, Tammy, OD Patient has diabetic neuropathy Care Plan Patient has diabetic neuropathy No Russell, Tammy, OD Patient has diabetic neuropathy Care Plan Patient has diabetic neuropathy No Russell, Tammy, OD Patient has diabetic neuropathy Care Plan Patient has diabetic neuropathy No Russell, Tammy, OD Weekly blood pressure task Care Plan Weekly blood pressure task No Puia, Daphnie, PharmD Weekly blood pressure task Care Plan Weekly blood pressure task No Puia, Daphnie, PharmD Weekly blood pressure task Care Plan Weekly blood pressure task No Puia Daphnie, PharmD Weekly blood pressure task Care Plan Weekly blood pressure task No Puia, Daphnie, PharmD Patient has chronic kidney disease Care Plan Patient has chronic kidney disease No Puia, Daphnie, PharmD Patient has chronic kidney disease Care Plan Patient has chronic kidney disease No Puia, Daphnie, PharmD Patient has chronic kidney disease Care Plan Patient has chronic kidney disease No Puia, Daphnie, PharmD Patient has chronic kidney disease Care Plan Patient has chronic kidney disease No Puia, Daphnie, PharmD Patient has diabetic neuropathy Care Plan Patient has diabetic neuropathy No Puia, Daphnie, PharmD Patient has diabetic neuropathy Care Plan Patient has diabetic neuropathy No Puia, Daphnie, PharmD Patient has diabetic neuropathy Care Plan Patient has diabetic neuropathy No Puia, Daphnie, PharmD Patient has diabetic neuropathy Care Plan Patient has diabetic neuropathy No Puia, Daphnie, PharmD Procedures Procedure Name Priority Date/Time Associated Diagnosis Comments ALBUMIN, RANDOM URINE W/CREATININE Routine 07/31/2025 1:22 PM EST CBC WITH AUTO DIFFERENTIAL Routine 07/31/2025 1:22 PM EST Other iron deficiency anemia POCT GLYCATED HEMOGLOBIN, TOTAL Routine 07/31/2025 12:46 PM EST Type 2 diabetes mellitus with hyperglycemia, with long-term current use of insulin (HCC) OCT, RETINA - OU - BOTH EYES Routine 07/02/2025 1:00 PM EST 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 (HCC) POCT GLUCOSE Routine 06/10/2025 4:18 PM EDT Encounter for immunization HEPATITIS C AB W/REFL TO HCV RNA, QN, PCR Routine 11/24/2024 4:24 PM EDT Screening examination for STI HIV 1/2 ANTIGEN/ANTIBODY, FOURTH GENERATION W/RFL Routine 11/24/2024 4:24 PM EDT Screening examination for STI LIPID PANEL, STANDARD Routine 11/24/2024 4:24 PM EDT Type 2 diabetes mellitus with hyperglycemia, with long-term current use of insulin ([facility]) MAMMOGRAM GENERIC Routine 02/03/2022 1:4 2 PM EDT HM COLONOSCOPY Routine 08/08/2017 1:25 PM EST from Last 3 Months or Most Recently Relevant to Health Maintenance Results * Albumin, Random Urine W/Creatinine (07/31/2025 1:22 PM EST) Creatinine, Urine 59.04 mg/dL [facility] Microalbumin Urine 12.0 mg/L [facility] Microalbum Creatinine Ratio Ur 20.3 <30 ug/mg cr [facility] Comment:Albumin/Creatinine R atio Reference Ranges: Normal: < 30 ug/mg creatinine Microalbuminuria: 30 - 300 ug/mg creatinineClinical Albuminuria: > 300 ug/mg creatinine 07/31/2025 1:22 PM EST 07/31/2025 4:07 PM EST us Love Garcia MD LAB URINE ORDERABLES Final Res ult [facility] [address] [place] [phone] * (ABNORMAL) CBC auto differential (07/31/2025 1:22 PM EST) White Blood Count 5.8 4.8 - 10.8 X10*3/uL [facility] Red Blood Count 4.08(L) 4.20 - 5.50 X10*6/uL [facility] Hemoglobin 11.0(L) 12.0 - 16.0 g/dl [facility] Hematocrit 34.4(L) 37.0 - 47.0 % [facility] Mean Corpuscular Volume 84.3 80.0 - 98.0 fL [facility] Mean Corpuscular Hemoglobin 27.0 27.0 - 33.0 pg [facility] Mean Corpuscular HGB Conc 32.0 31.0 - 35.0 g/dl [facility] Red Cell Distribution Width 14.2 11.0 - 16.0 % [facility] Platelet Count 137(L) 160 - 400 X10*3/uL [facility] Mean Platelet Volume 11.6 9.4 - 12.3 fL [facility] Neutrophils Percent Auto 78.8(H) 45 - 73 % [facility] Imm Gran Pct Auto 0.5(H) 0.0 - 0.4 % [facility] Lymphocytes Percent Auto 10.7(L) 20 - 40 % [facility] Monocytes Percent Auto 7.6 2 - 11 % [facility] Eosinophils Percent Auto 1.9 0 - 4 % [facility] Basophils Percent Auto 0.5 0 - 2 % [facility] NRBC Pct Auto 0.0 0.0 - 0.2 /100WBC [facility] Neutrophils Absolute Auto 4.6 2.0 - 8.3 x10*3/uL [facility] Imm Gran Abs Auto 0.03 0.00 - 0.03 X10*3/uL [facility] Lymphocytes Absolute Auto 0.6(L) 1.2 - 4.9 X10*3/uL [facility] Monocytes Absolute Auto 0.4 0.1 - 1.2 X10*3/uL [facility] Eosinophils Absolute Auto 0.1 0.0 - 0.4 X10*3/uL [facility] Basophils Absolute Auto 0.0 0.0 - 0.2 X10*3/uL [facility] NRBC Abs Auto 0.000 0.0 - 0.012 X10*3/uL [facility] Blood Venous blood specimen / Unknown 07/31/2025 1:22 PM EST 07/31/2025 4:05 PM EST us Rosangela Mcgee UNDERGROUND REPAIRER LAB BLOOD ORDERABLES Final Resul t [facility] [address] [place] [address] [phone] * (ABNORMAL) POCT Hgb A1c (07/31/2025 12:46 PM EST) Hemoglobin A1C 7.9(A) 4.0 - 5.7 % Blood 07/31/2025 12:4 6 PM EST Love Garcia MD POINT OF CARE TEST ENTER/EDIT ORDERABLES Final Result * OCT, Retina - OU - Both Eyes (07/02/2025 1:00 PM EST) Narrative Tammy Wells, OD - 07/17/2025 11:22 AM EST Images from the original result were not included. OCT [facility] [employer] Optical Coherence Tomography Interpretation Report Measurements: OD OS Macula Thickness 223 microns 227 microns Test findings: OD: Normal foveal contour, no cystoid macular edema, hemorrhage just nasal to fovea, no retinal pigment epithelium disruption, no subretinal fluid OS: Normal foveal contour, no cystoid macular edema, resolving CWS with underlying hemorrhage just nasal to fovea, no retinal pigment epithelium disruption, no subretinal fluid Impression and Plan: Mild non-proliferative diabetic retinopathy without macular edema in both eyes. Will monitor here in 6 months. Tammy Wells OD OPHTH TOMOGRAPHY Final Result * (ABNORMAL) POCT Glucose (06/10/2025 4:18 PM EDT) Pathologist [facility] Glucose Blood, POC 345(A) 60 - 200 mg/dL QC Media Lot # [id number] Lot# Expiration Date Blood Capillary blood specimen / Unknown 06/10/2025 4:18 PM EDT Love Garcia MD POINT OF CARE TEST ENTER/EDIT ORDERABLES Final Result * Hepatitis C Antibody with Reflex to HCV, RNA, Quantitative, Real-Time PCR (11/24/2024 4:24 PM EDT) Pathologist [facility] Hepatitis C Antibody Nonreactive Nonreactive [facility] Comment:Antibodies to HCV no t detected; does not exclude early acuteHCV infection. Blood Venous blood specimen / Unknown 11/24/2024 4:24 PM EDT 11/24/2024 5:57 PM EDT Love Garcia MD LAB BLOOD ORDERABLES Final Res ult Performing Organization Address [facility] [place]/[facility]/ZIP Co de Phone Number [facility] [address] [place] [phone] * HIV-1/2 Antigen and Antibodies, Fourth Generation, with Reflexes (11/24/2024 4:24 PM EDT) HIV AB/AG Nonreactive Nonreactive [facility] Comment:HIV-1 p24 Ag and/or HIV-1/HIV-2 Ab not detected.A test result that is nonreactive does not exclude thepossibility of exposure to or infection with HIV-1 and/orHIV-2. Nonreactive results in this assay for individualswith prior exposure to HIV-1 and/or HIV-2 may be due toantigen and antibody levels that are below the limit ofdetection of this assay.The [employer] HIV Ag/Ab Combo assay result andsupplemental assay results should be interpreted inconjunction with the patient's clinical presentation,history and other laboratory results. If the results areinconsistent with clinical evidence, additional testing issuggested to confirm the result. Blood Venous blood specimen / Unknown 11/24/2024 4:24 PM EDT 11/24/2024 5:57 PM EDT Love Garcia MD LAB BLOOD ORDERABLES Final Res ult Performing Organization Address City/[facility]/ZIP Co de Phone Number [facility] [address] [place] [address] [phone] * (ABNORMAL) Lipid Panel, Standard (11/24/2024 4:24 PM EDT) Triglycerides 151(H) <150 mg/dL [facility] Comment:Desirable Triglyceri de: less than 150 mg/dLBorderline High Triglyceride 150-199 mg/dLHigh Triglyceride: 200-499 mg/dLVery High Triglyceride: greater than or equal to 5OO mg/dL Cholesterol 164 <200 mg/dL [facility] Comment:Desirable Cholestero l: less than 200 mg/dLBorderline High Cholesterol: 200-239 mg/dLHigh Cholesterol: greater than 239 mg/dL LDL Cholesterol Calculated 101(H) <100 mg/dL [facility] Comment:Desirable LDL: less than 100 mg/dLNear Optimal/Above Optimal LDL: 110- 129 mg/dLBorderline High LDL: 130-159 mg/dLHigh LDL: 160-189 mg/dLVery High LDL: greater than or equal to 190 mg/dL HDL Cholesterol 33(L) >40 mg/dL [facility] Comment:Desirable HDL: great er than 40 mg/dL Note: This HDL assay may give artificially low results in patients with liver disease. Blood Venous blood specimen / Unknown 11/24/2024 4:24 PM EDT 11/24/2024 5:57 PM EDT Love Garcia MD LAB BLOOD ORDERABLES Final Res ult [facility] [address] [place] [phone] * Mammography Report 1 (02/03/2022 1:42 [...] * Hm Colonoscopy (08/08/2017 1:25 PM EST) Katie Provider HEALTH MAINTENANCE Final Result from Last 3 Months or Most Recently Relevant to Health Maintenance Additional Health Concerns Active Problems Noted Date Diagnosed Date Help patients manage their type 2 diabetes 07/17 Weekly blood pressure task 07/17/2025 Help patients manage their type 2 diabetes 07/17 Patient has diabetic eye disease 07/17/2025 Help patients manage their type 2 diabetes 07/17 Patient has chronic kidney disease 07/17/2025 Help patients manage their type 2 diabetes 07/17 Patient has diabetic neuropathy 07/17/2025 Weekly blood pressure task 07/17/2025 Weekly blood pressure task 07/17/2025 Weekly blood pressure task 07/17/2025 Patient has diabetic eye disease 07/17/2025 Patient has diabetic eye disease 07/17/2025 Patient has diabetic eye disease 07/17/2025 Patient has chronic kidney disease 07/17/2025 Patient has chronic kidney disease 07/17/2025 Patient has chronic kidney disease 07/17/2025 Patient has diabetic neuropathy 07/17/2025 Patient has diabetic neuropathy 07/17/2025 Patient has diabetic neuropathy 07/17/2025 Weekly blood pressure task 07/29/2025 Weekly blood pressure task 07/29/2025 Weekly blood pressure task 07/29/2025 Weekly blood pressure task 07/29/2025 Patient has chronic kidney disease 07/29/2025 Patient has chronic kidney disease 07/29/2025 Patient has chronic kidney disease 07/29/2025 Patient has chronic kidney disease 07/29/2025 Patient has diabetic neuropathy 07/29/2025 Patient has diabetic neuropathy 07/29/2025 Patient has diabetic neuropathy 07/29/2025 Patient has diabetic neuropathy 07/29/2025 Insurance [employer] H[employer] Care Teams Fruit Peeler Relationship Specialty Start Date End Date Love Garcia MD [address] [place] [address] PCP - General Family Medicine 09/14/20 Daphnie Falk, Nessa [address] [place] [address] Pharmacist Pharmacy 07/01/25
--- OUTSIDE RECORDS SUMMARY | 2025-07-31 17:22 | XMS_ITS | Encounter Summary ---
Author Organization [employer] Address 75 [facility] 7t [place] [address] Care Team Providers Care Clinical Trial Specialist Name Role Phone Love Garcia MD Primary Care Provider [phone] Daphnie Falk PharmD Unavailable Encounter Details Date Type Department Care Team ([facility] st Contact Info) Description 11/14/2023 Orders Only [facility] MED[facility]INE [address] [place], [place] [phone] Love Garcia MD [address] [place], [place] [phone] Chronic pruritus (Primary Dx) Social History Tobacco [...] Description 09/08/2025 2:30 PM EST Medication Management [facility] [address] [place], [place] [phone] Daphnie Falk, PharmD [address] [place], [place] [phone] documented as of this encounter Procedures Procedure Name Priority Date/Time Associated Diagnosis Comments COMPREHENSIVE METABOLIC PANEL Routine 12/03/2023 2:11 PM EDT Chronic pruritus documented in this encounter Results * (ABNORMAL) Comprehensive Metabolic Panel (12/03/2023 2:11 PM EDT) Sodium 133(L) 135 - 145 mmol/L [facility] Potassium 5.0 3.3 - 5.1 mmol/L [facility] Chloride 99 96 - 108 mmol/L [facility] Carbon Dioxide 24 22 - 29 mmol/L [facility] Anion Gap 15 12 - 20 [facility] Urea Nitrogen (BUN) 24(H) 9 - 16 mg/dL [facility] Creatinine, Serum 1.64(H) 0.5 - 1.4 mg/dL [facility] Estimated Glomerular Filt Rate 32 [facility] Comment:NOTE: For -Am erican individuals, multiply the result by 1.210.Chronic Kidney Disease: Estimated GFR < 60 mL/min/1.11z8Ngnkmz Kidney Disease: Estimated GFR < 15 mL/min/1.73m2 Glucose 427(HH) 60 - 115 mg/dL [facility] Comment:Critical value for t est(s): GLUR Results called to and readback by: ESSIE BROCK Person calling:Koffite:12/03/2023 Time:1633 Calcium 10.4(H) 8.4 - 10.2 mg/dL [facility] Bilirubin, Total 0.5 0.0 - 1.0 mg/dL [facility] Aspartate Amino Transferase 39(H) 5 - 31 U/L [facility] Alanine Aminotransferase 46(H) 0 - 31 U/L [facility] Total Protein 7.9 6.5 - 8.0 g/dL [facility] Albumin Level 3.9 3.5 - 5.0 g/dL [facility] Alkaline Phosphatase 38(L) 39 - 117 U/L [facility] Blood Venous blood specimen / Unknown 12/03/2023 2:11 PM EDT 12/03/2023 4:10 PM EDT us Love Garcia MD LAB BLOOD ORDERABLES Edited Re sult - Final [facility] [address] [place] [address] [phone] documented in this encounter Visit Diagnoses Diagnosis Chronic pruritus- Primary documented in this encounter Additional Health Concerns Assessment Noted Time PHQ-9 Depression Total Score: 16 03/18/2 024 3:45 PM EDT documented as of this encounter Care Teams Clinical Trial Specialist Relationship Specialty Start Date End Date Love Garcia MD [address] [place] [address] PCP - General Family Medicine 09/14/20 Daphnie Falk PharmD [address] [place] [address] Pharmacist Pharmacy 07/01/25 documented as of this encounter
--- OUTSIDE RECORDS SUMMARY | 2025-07-31 17:22 | XMS_ITS | Encounter Summary ---
Author Organization [employer] Address [address] [place] [address] 7t [place] [address] Care Team Providers Care Ssds Mk 2 Advanced Operator Name Role Phone Love Garcia MD Primary Care Provider [phone] Daphnie Falk PharmD Unavailable Encounter Details Date Type Department Care Team (Late Contact Info) Description 04/27/2023 Abstract [facility] MEDICINE [address] [place], [place] [phone] Carol Donato Social History Tobacco Use Types [...] Description 09/08/2025 2:30 PM EST Medication Management [facility] MED[facility]INE [address] [place], [place] [phone] Daphnie Falk, PharmD [address] [place], [place] [phone] documented as of this encounter Visit Diagnoses Not on filedocumented in this encounter Additional Health Concerns Assessment Noted Time PHQ-9 Depression Total Score: 14 023 11:44 AM EST documented as of this encounter Care Teams Ssds Mk 2 Advanced Operator Relationship Specialty Start Date End Date Love Garcia MD [address] [place] [address] PCP - General Family Medicine 09/14/20 Daphnie Falk PharmD [address] [place] [address] Pharmacist Pharmacy 07/01/25 documented as of this encounter
--- OUTSIDE RECORDS SUMMARY | 2025-07-31 17:22 | XMS_ITS | Encounter Summary ---
Author Organization [employer] Address 75 [facility] 7t [place] [address] Care Team Providers Care Assembly Repairer Name Role Phone Lvoe Garcia MD Primary Care Provider [phone] Daphnie Falk PharmD Unavailable Reason for Visit * Reason Onset Date Comments Call Back Request 01/14/2024 Encounter Details Date Type Department Care Team ([facility] st Contact Info) Description 01/14/2024 Telephone [facility] MEDICINE [address] [place], [place] [phone] Love Garcia MD [address] [place] [address] Call Back Request Social History Tobacco Use [...] 4:00 PM EDT TC placed to pt [phone] in regards to below message. Pt informed [...] a cholesterol medication. Please contact pt at [phone] documented in this encounter Plan of Treatment Upcoming Encounters Date Type Department Care Team (Late st Contact Info) Description 09/08/2025 2:30 PM EST Medication Management [facility] [address] [place], [place] [phone] Daphnie Falk, PharmD [address] [place], [place] [phone] documented as of this encounter Visit Diagnoses Not on filedocumented in this encounter Additional Health Concerns Assessment Noted Time PHQ-9 Depression Total Score: 16 024 3:45 PM EDT documented as of this encounter Care Teams Assembly Repairer Relationship Specialty Start Date End Date Love Garcia MD [address] [place], [place] [phone] PCP - General Family Medicine 09/14/20 Daphnie Falk, KeciaD [address] [place] [address] Pharmacist Pharmacy 07/01/25 documented as of this encounter
--- OUTSIDE RECORDS SUMMARY | 2025-07-31 17:22 | XMS_ITS | Encounter Summary ---
Author Organization [employer] Address 75 [facility] 7t [place] [address] Care Team Providers Care Thermodynamics Professor Name Role Phone Love Garcia MD Primary Care Provider [phone] Daphnie Falk PharmD Unavailable [phone] Encounter Details Date Type Department Care Team ([facility] st Contact Info) Description 06/05/2024 Orders Only [facility] MEDICINE [address] [place], [place] [phone] Love Garcia MD [address] [place], [place] [phone] Social History Tobacco Use Types Packs/Day Years [...] Description 09/08/2025 2:30 PM EST Medication Management [facility] MEDICINE [address] [place] [address] Daphnie Falk PharmD [address] [place] [address] documented as of this encounter Visit Diagnoses Not on filedocumented in this encounter Additional Health Concerns Assessment Noted Time PHQ-9 Depression Total Score: 16 024 3:45 PM EDT documented as of this encounter Care Teams Thermodynamics Professor Relationship Specialty Start Date End Date Love Garcia MD [address] [place] [address] PCP - General Family Medicine 09/14/20 Daphnie Falk, KeciaD [address] [place] [address] Pharmacist Pharmacy 07/01/25 documented as of this encounter
--- OUTSIDE RECORDS SUMMARY | 2025-07-31 17:22 | XMS_ITS | Encounter Summary ---
Author Organization [employer] Address [address] [place] [address] 7t [place] [address] Care Team Providers Care Nurse Specialist Name Role Phone Love Garcia MD Primary Care Provider [phone] Daphnie Falk PharmD Unavailable Reason for Visit * Reason Comments Med Refill Encounter Details Date Type Department Care Team ([facility] Contact Info) Description 02/06/2023 Refill [facility] MEDICINE [address] [place] [address] Love Garcia MD [address] [place] [address] Social History Tobacco Use Types Packs/Day Years [...] Upcoming Encounters Date Type Department Care Team ([facility] Contact Info) Description 09/08/2025 2:30 PM EST Medication Management [facility] MEDICINE [address] [place] [address] Daphnie Falk PharmD [address] [place] [address] documented as of this encounter Visit Diagnoses Not on filedocumented in this encounter Additional Health Concerns Assessment Noted Time PHQ-9 Depression Total Score: 14 023 11:44 AM EST documented as of this encounter Care Teams Nurse Specialist Relationship Specialty Start Date End Date Love Garcia MD [address] [place] [address] PCP - General Family Medicine 09/14/20 Daphnie Falk, Nessa [address] [place] [address] Pharmacist Pharmacy 07/01/25 documented as of this encounter
--- OUTSIDE RECORDS SUMMARY | 2025-07-31 17:22 | XMS_ITS | Encounter Summary ---
Author Organization [employer] Address 75 [facility] 7t [place] [address] Care Team Providers Care Vat Cleaner Name Role Phone Love Garcia MD Primary Care Provider [phone] Daphnie Falk PharmD Unavailable Encounter Details Date Type Department Care Team ([facility] st Contact Info) Description 06/15/2025 Orders Only [facility] MEDICINE [address] [place], [place] [phone] Love Garcia MD [address] [place], [place] [phone] Type 2 diabetes mellitus with hyperglycemia, with long-term current use of insulin (HCC) Social History Tobacco Use Types Packs/Day Years Used Date Smoking Tobacco: Former Cigarettes Smokeless Tobacco: Never Comments:1 or 2 [...] 2:30 PM EST Medication Management [facility] MEDICINE [address] [place] [address] Daphnie Falk, PharmD [address] [place] [address] documented as of this encounter Visit Diagnoses Diagnosis Type 2 diabetes mellitus with hyperglycemia, with long-term current use of insulin (HCC) documented in this encounter Additional Health Concerns Assessment Noted Time PHQ-9 Depression Total Score: 16 06/10/ 025 4:02 PM EDT documented as of this encounter Care Teams Vat Cleaner Relationship Specialty Start Date End Date Love Garcia MD [address] [place] [address] PCP - General Family Medicine 09/14/20 Daphnie Falk, KeciaD [address] [place] [address] Pharmacist Pharmacy 07/01/25 documented as of this encounter
--- OUTSIDE RECORDS SUMMARY | 2025-07-31 17:22 | XMS_ITS | Encounter Summary ---
Author Organization [employer] Address 75 [facility] 7t [place] [address] Care Team Providers Care Clerk Typist Name Role Phone Love Garcia MD Primary Care Provider [phone] Daphnie Falk PharmD Unavailable Reason for Visit * Reason Onset Date Comments Reschedule 01/14/2024 Encounter Details Date Type Department Care Team ([facility] st Contact Info) Description 01/14/2024 Telephone [facility] MEDICINE [address] [place], [place] [phone] Love Garcia MD [address] [place] [address] Reschedule Social History Tobacco Use Types Packs/Day [...] requesting to reschedule 01/13 follow up appointment. Local City Driver attempted tos schedule but no availability. Please contact pt at [phone] documented in this encounter Plan of Treatment Upcoming Encounters Date Type Department Care Team (Late st Contact Info) Description 09/08/2025 2:30 PM EST Medication Management [facility] MEDICINE [address] [place] [address] Daphnie Falk, PharmD [address] [place] [address] documented as of this encounter Visit Diagnoses Not on filedocumented in this encounter Additional Health Concerns Assessment Noted Time PHQ-9 Depression Total Score: 16 024 3:45 PM EDT documented as of this encounter Care Teams Clerk Typist Relationship Specialty Start Date End Date Love Garcia MD [address] [place] [address] PCP - General Family Medicine 09/14/20 Daphnie Falk, PharmD [address] [place] [address] Pharmacist Pharmacy 07/01/25 documented as of this encounter
--- OUTSIDE RECORDS SUMMARY | 2025-07-31 17:22 | XMS_ITS | Encounter Summary ---
Author Organization [employer] Address [address] [facility] 7t [place] [address] Care Team Providers Care Manager Hris Name Role Phone Love Garcia MD Primary Care Provider [phone] Daphnie Falk PharmD Unavailable [phone] Encounter Details Date Type Department Care Team ([facility] st Contact Info) Description 01/31/2024 Abstract [facility] MEDICINE [address] [place], [place] [phone] Love Garcia MD [address] [place], [place] [phone] Social History Tobacco Use Types Packs/Day Years [...] Description 09/08/2025 2:30 PM EST Medication Management [facility] MEDICINE [address] [place] [address] Daphnie Falk PharmD [address] [place] [address] documented as of this encounter Visit Diagnoses Not on filedocumented in this encounter Additional Health Concerns Assessment Noted Time PHQ-9 Depression Total Score: 16 024 3:45 PM EDT documented as of this encounter Care Teams Manager Hris Relationship Specialty Start Date End Date Love Garcia MD [address] [place] [address] PCP - General Family Medicine 09/14/20 Daphnie Falk PharmD [address] [place] [address] Pharmacist Pharmacy 07/01/25 documented as of this encounter
--- OUTSIDE RECORDS SUMMARY | 2025-07-31 17:22 | XMS_ITS | Encounter Summary ---
Author Organization [employer] Address [address] [place] [address] 7 [place] [address] Care Team Providers Care Quality Assurance Consultant Name Role Phone Love Garcia MD Primary Care Provider [phone] Daphnie Falk PharmD Unavailable Reason for Visit * Reason Comments Med Refill Encounter Details Date Type Department Care Team (Late Contact Info) Description 03/10/2023 Refill [facility] MEDICINE [address] [place], [place] [phone] Love Garcia MD [address] [place] [address] Social History Tobacco Use Types Packs/Day Years [...] Department Care Team (Late Contact Info) Description 09/08/2025 2:30 PM EST Medication Management [facility] MEDICINE [address] [place] [address] Daphnie Falk, PharmD [address] [place] [address] documented as of this encounter Visit Diagnoses Not on filedocumented in this encounter Additional Health Concerns Assessment Noted Time PHQ-9 Depression Total Score: 14 023 11:44 AM EST documented as of this encounter Care Teams Quality Assurance Consultant Relationship Specialty Start Date End Date Love Garcia MD [address] [place], [place] [phone] PCP - General Family Medicine 09/14/20 Daphnie Falk PharmD [address] [place], [place] [phone] Pharmacist Pharmacy 07/01/25 documented as of this encounter
--- OUTSIDE RECORDS SUMMARY | 2025-07-31 17:22 | XMS_ITS | Encounter Summary ---
Author Organization [employer] Address 75 [facility] 7t [place] [address] Care Team Providers Care Pattern Setter Name Role Phone Love Garcia MD Primary Care Provider [phone] Daphnie Falk PharmD Unavailable Encounter Details Date Type Department Care Team ([facility] st Contact Info) Description 01/03/2024 Orders Only [facility] MEDICINE [address] [place], [place] [phone] Love Garcia MD [address] [place], [place] [phone] Social History Tobacco Use Types Packs/Day Years [...] Description 09/08/2025 2:30 PM EST Medication Management [facility] MEDICINE [address] [place] [address] Daphnie Falk PharmD [address] [place] [address] documented as of this encounter Visit Diagnoses Not on filedocumented in this encounter Additional Health Concerns Assessment Noted Time PHQ-9 Depression Total Score: 16 024 3:45 PM EDT documented as of this encounter Care Teams Pattern Setter Relationship Specialty Start Date End Date Love Garcia MD [address] [place] [address] PCP - General Family Medicine 09/14/20 Daphnie Falk, KeciaD [address] [place] [address] Pharmacist Pharmacy 07/01/25 documented as of this encounter
--- OUTSIDE RECORDS SUMMARY | 2025-07-31 17:22 | XMS_ITS | Encounter Summary ---
Author Organization [employer] Address 75 [facility] 7t [place] [address] Care Team Providers Care Insulation Worker Apprentice Name Role Phone Love Garcia MD Primary Care Provider [phone] Daphnie Falk PharmD Unavailable [phone] Encounter Details Date Type Department Care Team (Late st Contact Info) Description 01/03/2024 Orders Only [facility] MEDICINE [address] [place] [address] ProviderKatie MD Social History Tobacco Use Types [...] Medication Management [facility] MEDICINE [address] [place], [place] [phone] Daphnie Falk PharmD [address] [place] [address] documented as of this encounter Procedures Procedure [...] documented as of this encounter Care Teams Insulation Worker Apprentice Relationship Specialty Start Date End Date Love Garcia MD [address] [place] [address] PCP - General Family Medicine 09/14/20 Daphnie Falk PharmD [address] [place], [place] [phone] Pharmacist Pharmacy 07/01/25 documented as of this encounter
--- OUTSIDE RECORDS SUMMARY | 2025-07-31 17:22 | XMS_ITS | Encounter Summary ---
Author Organization [employer] Address [address] [place] [address] 7 [place] [address] Care Team Providers Care Title One Teacher Name Role Phone Love Garcia MD Primary Care Provider [phone] Daphnie Falk PharmD Unavailable Reason for Referral * Consultation (Routine) - Authorized Specialty Diagnoses / Procedures Referred By Juanis mariscal Referred To Contact Orthopaedic Surgery Diagnoses Impingement syndrome of left shoulder Love Garcia MD [address] [place] [address] Phone: tel: fax: [facility] [address] [place] [address] [address] [place] [address] Phone: tel: fax: Referral ID Status Reason Start Date Expiration Date Visits Requested Visits Authorized [id number] Authorized Specialty Services Required 12/08/2024 12/08/2025 1 1 Encounter Details Date Type Department Care Team (Late st Contact Info) Description 11/26/2024 Orders Only [facility] MEDICINE [address] [place], [place] [phone] Love Garcia MD [address] [place], [place] [phone] Impingement syndrome of left shoulder (Primary Dx) [...] Description 09/08/2025 2:30 PM EST Medication Management [facility] MEDICINE [address] [place] [address] Daphnie Falk PharmD [address] [place] [address] Scheduled Referrals Name Type Priority Associated Diagnoses [...] documented as of this encounter Care Teams Title One Teacher Relationship Specialty Start Date End Date Love Garcia MD [address] [place] [address] PCP - General Family Medicine 09/14/20 Daphnie Falk PharmD [address] [place] [address] Pharmacist Pharmacy 07/01/25 documented as of this encounter
--- OUTSIDE RECORDS SUMMARY | 2025-07-31 17:23 | XMS_ITS | Encounter Summary ---
Author Organization [employer] Address [address] [facility] 7t [place] [address] Care Team Providers Care Vice President Sales And Marketing Name Role Phone Loev Garcia MD Primary Care Provider [phone] Daphnie Falk PharmD Unavailable Reason for Visit * Reason Onset Date Comments Med Refill 08/08/2023 Encounter Details Date Type Department Care Team ([facility] st Contact Info) Description 08/08/[address] [facility] MEDICINE [address] [place], [place] [phone] Love Garcia MD [address] [place] [address] Med Refill Social History Tobacco Use Types [...] Description 09/08/2025 2:30 PM EST Medication Management [facility] MEDICINE [address] [place] [address] Daphnie Falk, PharmD [address] [place] [address] documented as of this encounter Visit Diagnoses Not on filedocumented in this encounter Additional Health Concerns Assessment Noted Time PHQ-9 Depression Total Score: 14 023 11:44 AM EST documented as of this encounter Care Teams Vice President Sales And Marketing Relationship Specialty Start Date End Date Love Garcia MD [address] [place] [address] PCP - General Family Medicine 09/14/20 Daphnie Falk, KeciaD [address] [place] [address] Pharmacist Pharmacy 07/01/25 documented as of this encounter
--- OUTSIDE RECORDS SUMMARY | 2025-07-31 17:23 | XMS_ITS | Encounter Summary ---
Author Organization [employer] Address [address] [place] [address] Care Team Providers Care [employer] Name Role Phone Love Garcia MD Primary Care Provider [phone] Daphnie Falk PharmD Unavailable [phone] Encounter Details Date Type Department Care Team (Latest Contact Info) Description 07/31/2025 Travel Social History Tobacco Use Types Packs/Day [...] Description 09/08/2025 2:30 PM EST Medication Management [facility] [address] [place] [address] Daphnie Falk, PharmD [address] [place] [address] documented as of this encounter Goals Goal Patient Goal Type Associated Problems Recent Progress Patient-Stated? Author Help patients manage their type 2 diabetes Care Plan Help patients manage their type 2 diabetes No Tammy Wells, OD Weekly blood pressure task Care Plan Weekly blood pressure task No Tammy Wells, OD Help patients manage their type 2 diabetes Care Plan Help patients manage their type 2 diabetes No Tammy Welsl, OD Patient has diabetic eye disease Care [...] has diabetic neuropathy No Puia, Daphnie, PharmD documented as of this encounter Visit Diagnoses Not on filedocumented in this encounter Additional Health Concerns Active Problems Noted Date [...] neuropathy 07/29/2025 Patient has diabetic neuropathy 07/29/2025 Assessment Noted Time PHQ-9 Depression Total Score: 16 10/ 025 4:02 PM EDT documented as of this encounter Care Teams [employer] Relationship Specialty Start Date End Date Love Garcia MD [address] [place] [address] PCP - General Family Medicine 09/14/20 Daphnie Falk PharmD [address] [place] [address] Pharmacist Pharmacy 07/01/25 documented as of this encounter
[2025-07-31 17:28] LABS: Alanine Aminotransferase 42 U/L (0-31); Albumin Level 4.3 g/dL (3.5-5.0); Alkaline Phosphatase 41 U/L (39-117); Anion Gap 12 (12-20); Aspartate Amino Transferase 42 U/L (5-31); Blood Urea Nitrogen 27 mg/dL (9-16); Calcium 10.2 mg/dL (8.4-10.2); Carbon Dioxide 26 mmol/L (22-29); Chloride 105 mmol/L (96-108); Cholesterol 184 mg/dL (<200); Estimated Glomerular Filt Rate 40; HDL Cholesterol 36 mg/dL (>40); Potassium 4.6 mmol/L (3.3-5.1); Sodium 138 mmol/L (135-145); Total Protein 7.6 g/dL (6.5-8.0); Triglycerides 147 mg/dL (<150)
== END 2025-07-31 13:16 | disposition home or self-care (01) ==
LOC: HO.HHCL 13:15
PROVIDERS: Nurse Practitioner Family; PCP General Practice; Visit Provider General Practice
DX: E11.65 Type 2 diabetes mellitus with hyperglycemia (principal); D50.8 Other iron deficiency anemias; Z79.4 Long term (current) use of insulin
CPT/HCPCS: 36415; 80048; 80061; 80076; 82043; 82570; 85025